=== PATIENT | female | born 1980 | race Caucasian/White ===

== ENCOUNTER 2021-12-14 11:56 | Emergency (ER) | payer OTHER, SELFPAY ==
--- NOTE | ~2021-12-14 | XR_ITS ---
EXAMINATION: XR CHEST CLINICAL INFORMATION: Shortness of breath, cough COMPARISON: Prior chest radiographs, most recently 07/20/2019 TECHNIQUE: 2 views of the chest were obtained. FINDINGS: No significant abnormality is noted involving the heart, lungs, mediastinum, bony thorax or soft tissues. XR/XR chest 2V IMPRESSION: Unremarkable examination.
[2021-12-14 12:07] VITALS: BP 148/73; PULSE 94; RESP 20; TEMP 37; O2SAT 95; BMI 20.9
[2021-12-14 12:34] LABS: COVID-19 Test Negative (Negative); IDNOW Serial# 16C4AD1C; Influenza A Negative (Negative); Influenza B2 Negative (Negative)
[2021-12-14] MEDS: Albuterol Sulfate (0.083%) 2.5 MG/3 ML VIAL.NEB 5 MG INHALE (13:10)
[2021-12-14 13:12] VITALS: PULSE 88; RESP 18; O2SAT 97
[2021-12-14 13:35] VITALS: PULSE 94; RESP 18; O2SAT 99
--- NOTE | 2021-12-14 13:46 | ED.URI ---
HPI - URI/Sore Throat General Chief Complaint: Upper Respiratory Symptoms Stated Complaint: congestion, chest tightness Time Seen by Provider: 12/14/21 12:29 Related Data Previous Rx's Medication Instructions Recorded albuterol sulfate 90 mcg/actuation 1 inh INHALATION QID PRN #8.5 g 12/14/21 aerosol inhaler azithromycin 250 mg tablet See Rx Instructions .ROUTE 12/14/21 .COMPLEX #6 tab codeine 10 mg-guaifenesin 100 mg/5 5 ml PO Q6H PRN #120 ml 12/14/21 mL oral liquid (Guaifenesin AC) prednisone 20 mg tablet 40 mg PO DAILY 5 Days #10 tab 12/14/21 Allergies Allergy/AdvReac Type Severity Reaction Status Date / Time cat dander [CAT] Allergy Severe SHORTNESS Verified 12/14/21 12:06 OF BREATH peanut [PEANUT] Allergy Severe ANAPHYLAXIS Verified 12/14/21 12:06 tomato [TOMATO] Allergy Severe SHORTNESS Verified 12/14/21 12:06 OF BREATH, ITCHY THROAT cucumber [CUCUMBER] Allergy Unknown ANGIOEDEMA Verified 12/14/21 12:06 PEANUT BUTTER Allergy Severe ANAPHYLAXIS Uncoded 05/07/20 16:43 RAW FRUIT Allergy Mild ITCHING Uncoded 05/07/20 16:43 THROAT peanutes Allergy Unknown stopped Uncoded 10/28/13 00:00 breathing PMFSH Past Medical History Medical History (Updated 12/14/21 @ 13:46 by SURINDER Contreras) Afib Anxiety Asthma Bipolar 1 disorder Social History Social History Advance Directives: No Advance Directives Information Provided: No Physical Exam Vital Signs: Vital Signs: Last Vital Signs Temp 98.6 F 12/14/21 12:07 Pulse 94 12/14/21 13:35 Resp 18 12/14/21 13:35 BP 148/73 H 12/14/21 12:07 Pulse Ox 99 12/14/21 13:35 BMI result Body Mass Index 20.9 MDM - URI/Sore Throat Lab Data Labs: Lab Results 12/14/21 12/14/21 Range/Units 12:14 12:14 COVID-19 ([facility]CIANO) Negative (Negative) COVID-19 Clin Com See Note Influenza Type A (SAYRA) Negative (Negative) Influenza Type B (SAYRA) Negative (Negative) Influenza A & B Note See Note Discharge Plan Discharge Clinical Impression: Acute bronchitis with bronchospasm, Asthma exacerbation Patient Disposition: Home, Self-Care Instructions: Asthma (DC), Acute Bronchitis (ED) Prescriptions: New albuterol sulfate 90 mcg/actuation HFA aerosol inhaler 1 inh inhalation QID PRN (Reason: shortness of breath or wheezing) Qty: 8.5 0RF azithromycin 250 mg tablet See Rx Instructions .ROUTE .COMPLEX Qty: 6 0RF Rx Instructions: take 500 mg today (day 1), then 250 mg for 4 days (days 2-5) codeine-guaifenesin [Guaifenesin AC] 10-100 mg/5 mL liquid 5 ml PO Q6H PRN (Reason: cold symptoms) Qty: 120 0RF prednisone 20 mg tablet 40 mg PO DAILY 5 Days Qty: 10 0RF Referrals: Annel Bowden MD [Primary Care Provider] - 2 days
--- NOTE | 2021-12-14 13:50 | ED.ASTHMA ---
HPI - Asthma General Chief Complaint: Upper Respiratory Symptoms Stated Complaint: congestion, chest tightness Time Seen by Provider: 12/14/21 12:29 Source: patient Mode of arrival: ambulatory Limitations: no limitations History of Present Illness HPI Narrative: 41-year-old female with a past medical history of asthma, atrial fibrillation, anxiety and bipolar 1 disorder presenting to the ED with complaints of URI symptoms for the past 2 days worse today after her 7-year-old daughter has similar symptoms. She reports that she is vaccinated to COVID in the flu. She denies recent travel or any other sick contacts. She reports intermittent headaches, nasal congestion/rhinorrhea, dry cough with wheezing and chest tightness. She denies any fevers, chills, dizziness, neck pain/stiffness, trouble swallowing, sore throat, loss of taste or smell, ear pain, sputum production, nausea/vomiting/diarrhea constipation, abdominal pain, back pain, rashes, lower extremity edema or calf tenderness or any other symptoms complaints or concerns at this time. MD complaint: asthma attack , shortness of breath and wheezing Onset (ago): day(s) (2) Severity: moderate Context: none known Associated symptoms: dry cough Asthma History: history of frequent attacks Treatments Prior to Arrival: inhaled bronchodilator Related Data Current Asthma Therapy: inhaled bronchodilator Previous Rx's Medication Instructions Recorded albuterol sulfate 90 mcg/actuation 1 inh INHALATION QID PRN #8.5 g 12/14/21 aerosol inhaler azithromycin 250 mg tablet See Rx Instructions .ROUTE 12/14/21 .COMPLEX #6 tab codeine 10 mg-guaifenesin 100 mg/5 5 ml PO Q6H PRN #120 ml 12/14/21 mL oral liquid (Guaifenesin AC) prednisone 20 mg tablet 40 mg PO DAILY 5 Days #10 tab 12/14/21 Allergies Allergy/AdvReac Type Severity Reaction Status Date / Time cat dander [CAT] Allergy Severe SHORTNESS Verified 12/14/21 12:06 OF BREATH peanut [PEANUT] Allergy Severe ANAPHYLAXIS Verified 12/14/21 12:06 tomato [TOMATO] Allergy Severe SHORTNESS Verified 12/14/21 12:06 OF BREATH, ITCHY THROAT cucumber [CUCUMBER] Allergy Unknown ANGIOEDEMA Verified 12/14/21 12:06 PEANUT BUTTER Allergy Severe ANAPHYLAXIS Uncoded 05/07/20 16:43 RAW FRUIT Allergy Mild ITCHING Uncoded 05/07/20 16:43 THROAT peanutes Allergy Unknown stopped Uncoded 10/28/13 00:00 breathing Review of Systems Review of Systems: Constitutional : denies med noncompliance, no history of PE or DVT, denies recent travel, No Fever, No Chills ENT/Mouth : No Hoarseness, No sore throat,+ Rhinorrhea, + Nasal congestion, No Sinus Pressure, No Ear Pain, No stridor, Eyes: No Redness, No Discharge, No Vision Changes Cardiovascular : No Chest Pain, No SOB, No Dyspnea on Exertion, No Edema, no pleurisy, Respiratory : + Cough, + wheezing, No Sputum, no stridor, no hemoptysis, Gastrointestinal : No Nausea, No Vomiting, No Diarrhea, No abdominal Pain Genitourinary : No Dysuria, No Hematuria Musculoskeletal : No joint pain/swelling, No Myalgias Extremities: no extremity swelling /pain Skin : No rash, no itching, no swelling Neuro : No Weakness, No Numbness, No Headache, No Dizziness, No Paresthesias Psych : No anxiety, depression Heme/Lymph: No Bruising, No Bleeding Endocrine : No Polyuria, No Polydipsia Yes all other systems are reviewed and are negative [facility] Past Medical History Attestation statement: The following information was validated with the patient. Medical History Afib Anxiety Asthma Bipolar 1 disorder Social History Social History Advance Directives: No Advance Directives Information Provided: No Physical Exam Vital Signs: Vital Signs: Last Vital Signs Temp 98.6 F 12/14/21 12:07 Pulse 94 12/14/21 13:35 Resp 18 12/14/21 13:35 BP 148/73 H 12/14/21 12:07 Pulse Ox 99 12/14/21 13:35 BMI result Body Mass Index 20.9 vital signs have been reviewed as normal and appeared to be correct. Blood pressure 148/73. Heart rate normal. Respiration rate normal. Temperature normal. Oxygen saturation normal. Appearance: Alert. Oriented X3. No acute distress. Head: Normal external exam. Normocephalic. Atraumatic. Eyes: PERRLA. EOMI. Conjunctiva and sclera normal. Eyelids normal. ENT: EAC normal. TM's Normal. Pharynx normal. Uvula midline. Moist mucous membranes. No lesions/ulcerations or masses noted on the tongue. Normal voice. No trismus noted. No drooling noted. No muffled voice noted. Neck: Normal inspection. Neck supple. FROM. No adenopathy. Thyroid Normal. No tracheal deviation noted. No crepitus is noted. No meningeal signs. No neck mass noted. No signs of trauma noted. CVS: Normal heart rate and rhythm. Heart sound normal. Pulses normal throughout. No murmurs/rales/gallops. Respiratory: No respiratory distress. Painless inspiration. Patient with decreased breath sounds throughout with mild expiratory wheezing throughout. No rales/rhonchi noted. Chest nontender. No crepitus is noted. No signs of trauma noted. No accessory muscle usage noted or decreased air movement noted. No signs of trauma. Abdomen: Soft and nontender. Bowel sounds normal in all 4 quadrants. No distention noted. No organomegaly noted. No visible injury noted. Back: No CVA tenderness. Full range of motion noted. Nontender. No signs of trauma. Patient neuro intact bilaterally and distally on all 4 extremities. Patient's reflexes intact bilaterally and distally on all 4 extremities. No rashes/lesion/induration/fluctuance or signs of infection noted. Skin: Skin warm and dry. Normal skin color. Normal skin turgor. No rashes/lesions/lacerations noted. Extremities: No lower extremity edema. No calf tenderness is noted. Extremities exhibit normal range of motion and nontender. Neuro: Oriented X 3. No motor deficit. No sensory deficit. Reflexes normal. Normal steady gait. No focal neuro deficits noted. CN's II-XII intact bilaterally? Vascular: + radial pulses/+ 2 distal pedal pulses/+2 dorsalis pedis b/l. Normal cap refill. No cyanosis noted to upper extremity nails and lower extremity toes nails. Course Course Course Narrative: 41-year-old female with a past medical history of asthma, atrial fibrillation, anxiety and bipolar 1 disorder presenting to the ED with complaints of URI symptoms for the past 2 days worse today after her 7-year-old daughter has similar symptoms. She reports that she is vaccinated to COVID in the flu. She denies recent travel or any other sick contacts. She reports intermittent headaches, nasal congestion/rhinorrhea, dry cough with wheezing and chest tightness. She denies any fevers, chills, dizziness, neck pain/stiffness, trouble swallowing, sore throat, loss of taste or smell, ear pain, sputum production, nausea/vomiting/diarrhea constipation, abdominal pain, back pain, rashes, lower extremity edema or calf tenderness or any other symptoms complaints or concerns at this time. X-ray negative for any acute processes. Patient negative for COVID and flu. Patient reports she feels much better after the breathing treatment. Will DC home with symptomatic treatment and a course of steroids and instructions return if any new or worsening symptoms to follow up with primary care provider. Patient understands agrees with this plan. [facility] - Asthma Medical Records Attestation: I reviewed the patient's medical records. Lab Data Attestation: I reviewed the patient's lab results. Labs: Lab Results 12/14/21 12/14/21 Range/Units 12:14 12:14 COVID-19 ([facility]O) Negative (Negative) COVID-19 Clin Com See Note Influenza Type A (SAYRA) Negative (Negative) Influenza Type B (SAYRA) Negative (Negative) Influenza A & B Note See Note Imaging Data Chest x-ray: Attestation: I personally reviewed and interpreted this imaging study as follows: Radiologist's impression: FINDINGS: No significant abnormality is noted involving the heart, lungs, mediastinum, bony thorax or soft tissues. XR/XR chest 2V IMPRESSION: Unremarkable examination. Discharge Plan Discharge Clinical Impression: Acute bronchitis with bronchospasm, Asthma exacerbation Patient Disposition: Home, Self-Care Instructions: Asthma (DC), Acute Bronchitis (ED) Prescriptions: New albuterol sulfate 90 mcg/actuation HFA aerosol inhaler 1 inh inhalation QID PRN (Reason: shortness of breath or wheezing) Qty: 8.5 0RF azithromycin 250 mg tablet See Rx Instructions .ROUTE .COMPLEX Qty: 6 0RF Rx Instructions: take 500 mg today (day 1), then 250 mg for 4 days (days 2-5) codeine-guaifenesin [Guaifenesin AC] 10-100 mg/5 mL liquid 5 ml PO Q6H PRN (Reason: cold symptoms) Qty: 120 0RF prednisone 20 mg tablet 40 mg PO DAILY 5 Days Qty: 10 0RF Referrals: Annel Bowden MD [Primary Care Provider] - 2 days Stand Alone Forms: Work/School Release Print Language: Tanzanian
== END 2021-12-14 14:32 | disposition home or self-care (01) ==
PROVIDERS: Emergency Provider Emergency Medicine; PCP Internal Medicine
DX: J20.9 Acute bronchitis, unspecified (principal); J45.901 Unspecified asthma with (acute) exacerbation; I48.91 Unspecified atrial fibrillation; Z20.822 Contact with and (suspected) exposure to COVID-19
CPT/HCPCS: 71046; 87502; 87635; 94640; 99283; 99284

== ENCOUNTER 2022-01-16 19:23 | Emergency (ER) | payer OTHER, SELFPAY ==
[2022-01-16 19:31] VITALS: BP 150/73; BP 160/110; PULSE 78; PULSE 87; RESP 18; TEMP 36.4; O2SAT 99; BMI 39.5
--- NOTE | 2022-01-16 20:15 | ED.GENADULT ---
HPI - General Adult General Chief complaint: General Medical Stated complaint: withdrawals Time Seen by Provider: 01/16/22 19:54 History of Present Illness HPI narrative: Patient is a 41-year-old female with a history of atrial fibrillation is flecainide. History of bipolar disease on Depakote. Patient feels withdrawal symptoms from not having her venlafaxine for the last 3 days. Feels headache feels generalized malaise. There is no chest pain has no shortness of breath is no diaphoresis. Patient is from home. Patient called her psychiatrist a script was sent to [facility] pharmacy. She did not know which [facility] to. Subsequently patient was unable to obtain her medication. She got worried and came to the ED. She denies any suicidal homicidal ideations no fever no chills no cough no congestion or upper respiratory symptoms no focal weakness no trauma not on thinners Related Data Previous Rx's Medication Instructions Recorded albuterol sulfate 90 mcg/actuation 1 inh INHALATION QID PRN #8.5 g 12/14/21 aerosol inhaler azithromycin 250 mg tablet See Rx Instructions .ROUTE 12/14/21 .COMPLEX #6 tab codeine 10 mg-guaifenesin 100 mg/5 5 ml PO Q6H PRN #120 ml 12/14/21 mL oral liquid (Guaifenesin AC) prednisone 20 mg tablet 40 mg PO DAILY 5 Days #10 tab 12/14/21 Allergies Allergy/AdvReac Type Severity Reaction Status Date / Time cat dander [CAT] Allergy Severe SHORTNESS Verified 12/14/21 12:06 OF BREATH peanut [PEANUT] Allergy Severe ANAPHYLAXIS Verified 12/14/21 12:06 tomato [TOMATO] Allergy Severe SHORTNESS Verified 12/14/21 12:06 OF BREATH, ITCHY THROAT cucumber [CUCUMBER] Allergy Unknown ANGIOEDEMA Verified 12/14/21 12:06 PEANUT BUTTER Allergy Severe ANAPHYLAXIS Uncoded 05/07/20 16:43 RAW FRUIT Allergy Mild ITCHING Uncoded 05/07/20 16:43 THROAT peanutes Allergy Unknown stopped Uncoded 10/28/13 00:00 breathing Review of Systems Review of Systems: No fever no chills Positive generalized malaise Positive diffuse headache No focal weakness Yes all other systems are reviewed and are negative PMFSH Past Medical History Attestation statement: The following information was validated with the patient. Medical History Afib Anxiety Asthma Bipolar 1 disorder Social History Social History Advance Directives: No Advance Directives Information Provided: No Physical Exam ED Vital Signs: Vital Signs - 24 hr 01/16/22 19:31 01/16/22 21:35 Temperature 97.6 F 98.3 F Pulse Rate 78 81 Respiratory Rate 18 16 Blood Pressure 150/73 H 136/61 Pulse Oximetry 99 98 BMI result Body Mass Index 39.5 Appearance: Alert. Oriented X3. No acute distress. Eyes: Pupils equal, round and reactive to light. ENT: Pharynx normal. Neck: Normal inspection. Neck supple. No lymph nodes noted. No crepitus CVS: Normal heart rate and rhythm. Pulses normal. Normal S1 and S2 Respiratory: No respiratory distress. Breath sounds normal. No Wheezing. No rales Abdomen: Soft and nontender. No rigidity. No distention. good BS x4 Skin: Skin warm and dry. Normal skin color. Normal skin turgor. Extremities: No lower extremity edema. Neurovascular intact to all extremities. No Lacerations. No Rash Neuro: Oriented X 3. No motor deficit. No sensory deficit. Moving all extermities. No slurred speech Medical Decision Making MDM Narrative Medical decision making narrative: Patient well appearing no distress. Verify with [facility] pharmacy patient indeed is on 225 of Effexor ER. Her script has been subsequently sent at her request to [facility]. Pharmacist at [facility] assured us that her script most likely will be ready tomorrow morning at [facility]. We will go ahead and give patient her dose here in the emergency department. Give a dose of Motrin. Neurologically she is intact she appears well currently in stable condition. Patient's symptom improved after medications given back to her. She is in stable condition. Will filler picker her prescription tomorrow. She is in stable condition with discharge home Discharge Plan Discharge Clinical Impression: Bipolar 1 disorder Patient Disposition: Home, Self-Care Instructions: Bipolar Disorder (ED) Prescriptions: No Action albuterol sulfate 90 mcg/actuation HFA aerosol inhaler 1 inh inhalation QID PRN (Reason: shortness of breath or wheezing) Qty: 8.5 0RF azithromycin 250 mg tablet See Rx Instructions .ROUTE .COMPLEX Qty: 6 0RF Rx Instructions: take 500 mg today (day 1), then 250 mg for 4 days (days 2-5) codeine-guaifenesin [Guaifenesin AC] 10-100 mg/5 mL liquid 5 ml PO Q6H PRN (Reason: cold symptoms) Qty: 120 0RF prednisone 20 mg tablet 40 mg PO DAILY 5 Days Qty: 10 0RF Referrals: Yanique Segura MD [Primary Care Provider] -
[2022-01-16] MEDS: Ibuprofen 400 MG TABLET PO (21:32)
[2022-01-16] MEDS: Venlafaxine HCl ER 75 MG CAP.ER.24H 225 MG PO (21:33)
[2022-01-16 21:35] VITALS: BP 136/61; PULSE 81; RESP 16; TEMP 36.8; O2SAT 98
== END 2022-01-16 22:27 | disposition home or self-care (01) ==
PROVIDERS: Emergency Provider Emergency Medicine Emergency Medical Services; PCP Family Medicine
DX: F31.9 Bipolar disorder, unspecified (principal); Z91.14 Patient's other noncompliance with medication regimen; R51.9 Headache, unspecified; Z79.899 Other long term (current) drug therapy
CPT/HCPCS: 99283; 99284

== ENCOUNTER 2022-03-22 07:38 | Emergency (ER) | payer OTHER, SELFPAY ==
--- NOTE | ~2022-03-22 | XR_ITS ---
EXAMINATION: XR ANKLE, RIGHT CLINICAL INFORMATION: Right ankle pain status post walking on uneven grass. COMPARISON: None TECHNIQUE: AP, lateral, and mortise views of the right ankle. FINDINGS: The ankle joint and mortise are intact. There is no acute fracture or dislocation. The tarsal bones are normally aligned. There is mild to moderate soft tissue swelling. XR/XR ankle RT 2V IMPRESSION: Mild to moderate soft tissue swelling without acute underlying osseous abnormality.
[2022-03-22 07:42] VITALS: BP 123/63; PULSE 82; RESP 18; TEMP 36.3; O2SAT 95; BMI 37.2
--- NOTE | 2022-03-22 10:09 | ED_ITS ---
HPI - Extremity Injury (Lower) General Chief Complaint: Extremity Injury, Lower Stated Complaint: R ankle inj Time Seen by Provider: 03/22/22 09:27 Source: patient Mode of arrival: ambulatory Limitations: no limitations History of Present Illness HPI Narrative: 41-year-old female with a past medical history of atrial fibrillation, anxiety, asthma, and bipolar 1 disorder, presents following a right ankle injury that occurred the evening of 03/21/22. Patient stated that she was walking on uneven grass when she rolled her right ankle. Patient denies falling at that time. She says she has a history of rolling her ankle, so she has been wearing an OTC ankle brace. Patient denies loss of consciousness, head trauma, numbness, tingling, weakness, or any sick symptoms. MD complaint: ankle injury Onset (ago): day(s) Injury: Right: ankle (Lateral ) Type of Injury: inversion Place: work Severity: mild Severity scale (1-10): 1 Relieving factors: NSAID Exacerbating factors: weight bearing and movement Context: other (Walking on uneven grass) Associated symptoms: swelling (Mild edema of the lateral malleolus ) and ambulatory Other symptoms: none Treatments prior to arrival: cold therapy, NSAIDS and other (Personal ankle brace) Related Data Previous Rx's Medication Instructions Recorded albuterol sulfate 90 mcg/actuation 1 inh inhalation QID PRN shortness 12/14/21 aerosol inhaler of breath or wheezing #8.5 grams azithromycin 250 mg tablet See Rx Instructions PO .COMPLEX #6 12/14/21 tabs codeine 10 mg-guaifenesin 100 mg/5 5 ml PO Q6H PRN cold symptoms #120 12/14/21 mL oral liquid (Guaifenesin AC) mL prednisone 20 mg tablet 40 mg PO DAILY rash 5 days #10 tabs 12/14/21 Allergies Allergy/AdvReac Type Severity Reaction Status Date / Time cat dander [CAT] Allergy Severe SHORTNESS Verified 12/14/21 12:06 OF BREATH peanut [PEANUT] Allergy Severe ANAPHYLAXIS Verified 12/14/21 12:06 tomato [TOMATO] Allergy Severe SHORTNESS Verified 12/14/21 12:06 OF BREATH, ITCHY THROAT cucumber [CUCUMBER] Allergy Unknown ANGIOEDEMA Verified 12/14/21 12:06 PEANUT BUTTER Allergy Severe ANAPHYLAXIS Uncoded 05/07/20 16:43 RAW FRUIT Allergy Mild ITCHING Uncoded 05/07/20 16:43 THROAT peanutes Allergy Unknown stopped Uncoded 10/28/13 00:00 breathing Review of Systems Review of Systems: Constitutional: No Weight loss, No Fever, No Chills Cardiovascular: No Chest Pain, No SOB Respiratory: No Cough, No Sputum, No Wheezing Gastrointestinal: No Nausea, No Vomiting, No Diarrhea, No Constipation, No Abdominal pain Genitourinary: No Dysuria, No Urinary Frequency, No Hematuria, No Urinary Incontinence/retention, No Urgency, No Flank Pain Musculoskeletal: + Joint pain, No Myalgias, + Joint Swelling Skin: No Skin Lesions, No rash Neuro: No Weakness, No Numbness, No Paresthesias Yes all other systems are reviewed and are negative Constitutional: Constitutional: Reports as per [facility] Past Medical History Attestation statement: The following information was validated with the patient. Medical History Afib Anxiety Asthma Bipolar 1 disorder Social History Social History Advance Directives: No Advance Directives Information Provided: Yes Physical Exam Vital Signs: Vital Signs: Last Vital Signs Temp 97.3 F 03/22/22 07:42 Pulse 82 03/22/22 07:42 Resp 18 03/22/22 07:42 BP 123/63 03/22/22 07:42 Pulse Ox 95 03/22/22 07:42 O2 Del Method 03/22/22 07:42 BMI result Body Mass Index 37.2 Const: General: cooperative, healthy appearing and no acute distress Orientation/consciousness: patient oriented x3 Limitations: no limitations HEENT: Head: Yes normal to inspection and Yes atraumatic Ears: hearing grossly normal bilaterally General nose exam: Normal external nose present Face and sinus: Yes normal facial exam Eyes: General: appearance normal, both eyes and all related structures EOM: EOMs intact bilaterally Neck: Neck: Yes normal visual inspection and Yes no meningeal signs Resp: Effort & Inspection: normal respiratory effort and no respiratory distress Auscultation: clear to auscultation bilaterally Cardio: Rate: regular rate Heart sounds: S1 normal heart sound present and S2 normal heart sound present Skin: Rashes: no rashes Wounds: no wounds Neuro: Other: Ambulating with limping gait General: patient oriented x3, tone normal and no meningeal signs Extrem: Other: + mild right lateral malleolar swelling with tenderness to palpation. Limited full ROM secondary to pain. Neurovascularly intact MDM - Extremity Injury (Lower) MDM Narrative Medical decision making narrative: 41-year-old female with a past medical history of atrial fibrillation, anxiety, asthma, and bipolar 1 disorder, presents following a right ankle injury that occurred the evening of 03/21/22. Imaging of the right ankle showed mild to moderate soft tissue swelling, but was negative for acute underlying osseous abnormality. On physical exam, mild swelling was noted around the lateral malleolus, which was mildly tender to palpation. Plan: -Place right ankle in air cast -Follow up with PCP Medical Records Attestation: I reviewed the patient's medical records. Lab Data Attestation: I reviewed the patient's lab results. Discharge Plan Discharge Clinical Impression: Ankle sprain and strain Patient Disposition: Home, Self-Care Instructions: Ankle Sprain (ED) Additional Instructions: You sprained her ankle. Her x-ray is unremarkable. Wear Aircast at home as needed for comfort and stability. Ice and elevate. Take Tylenol and Motrin for pain and swelling. Bear weight as tolerated Prescriptions: No Action albuterol sulfate 90 mcg/actuation HFA aerosol inhaler 1 inh inhalation QID PRN (Reason: shortness of breath or wheezing) Qty: 8.5 0RF azithromycin 250 mg tablet See Rx Instructions .ROUTE .COMPLEX Qty: 6 0RF Rx Instructions: take 500 mg today (day 1), then 250 mg for 4 days (days 2-5) codeine-guaifenesin [Guaifenesin AC] 10-100 mg/5 mL liquid 5 ml PO Q6H PRN (Reason: cold symptoms) Qty: 120 0RF prednisone 20 mg tablet 40 mg PO DAILY 5 Days Qty: 10 0RF Referrals: Physician,Unknown J [Primary Care Provider] - Stand Alone Forms: Work/School Release Interventions: ED Discharge Assessment Last Done: 03/22/22 10:25 Discharge Date/Time: 03/22/22 10:31
== END 2022-03-22 10:31 | disposition home or self-care (01) ==
PROVIDERS: Emergency Provider Emergency Medicine Emergency Medical Services
DX: S93.401A Sprain of unspecified ligament of right ankle, initial encounter (principal); S96.911A Strain of unspecified muscle and tendon at ankle and foot level, right foot, initial encounter; X50.1XXA Overexertion from prolonged static or awkward postures, initial encounter; Y93.89 Activity, other specified; Y92.096 Garden or yard of other non-institutional residence as the place of occurrence of the external cause; Y99.9 Unspecified external cause status
CPT/HCPCS: 73600; 99282; 99283; 99284

== ENCOUNTER 2022-03-29 00:22 | Emergency (ER) | payer OTHER, SELFPAY ==
--- NOTE | ~2022-03-29 | XR_ITS ---
EXAMINATION: XR HAND, LEFT CLINICAL INFORMATION: Middle finger pain COMPARISON: None TECHNIQUE: PA, lateral, and oblique views of the left hand. FINDINGS: The bones and soft tissues are normal. No fracture. Alignment is anatomic. Joint spaces are maintained. No erosions or soft tissue calcifications. XR/XR hand LT 2V IMPRESSION: Normal left hand.
[2022-03-29 00:31] VITALS: BP 138/69; PULSE 85; RESP 16; TEMP 36.3; O2SAT 98; BMI 37.2
--- NOTE | 2022-03-29 01:24 | ED.EXTPRO ---
HPI - Extremity Problem General Chief complaint: Extremity Injury, Upper Stated complaint: thumb pain Time Seen by Provider: 03/29/22 01:21 Source: patient Mode of arrival: ambulatory Limitations: no limitations History of Present Illness MD Complaint: other (L middle finger pain) Onset (ago): day(s) (4) Pain Consistency: constant Location: left and other (middle finger) Quality: aching and dull Radiation: none Relieving factors: immobilization Exacerbating factors: range of motion and palpation Associated symptoms: denies other symptoms Context: other (happened after popping knuckle very hard - at PIP joint, since then pain over flexor tendon) Related Data Previous Rx's Medication Instructions Recorded albuterol sulfate 90 mcg/actuation 1 inh inhalation QID PRN shortness 12/14/21 aerosol inhaler of breath or wheezing #8.5 grams azithromycin 250 mg tablet See Rx Instructions PO .COMPLEX #6 12/14/21 tabs codeine 10 mg-guaifenesin 100 mg/5 5 ml PO Q6H PRN cold symptoms #120 12/14/21 mL oral liquid (Guaifenesin AC) mL prednisone 20 mg tablet 40 mg PO DAILY rash 5 days #10 tabs 12/14/21 Allergies Allergy/AdvReac Type Severity Reaction Status Date / Time peanut [PEANUT] Allergy Severe ANAPHYLAXIS Verified 03/29/22 00:30 banana Allergy Itching Verified 03/29/22 00:30 Review of Systems Review of Systems: Constitutional : No Fever, No Chills ENT/Mouth : No Ear Pain, No Hoarseness, No sore throat Eyes: No Eye Pain, No Swelling, No Redness, No Foreign Body Cardiovascular : No Chest Pain, No SOB Respiratory : No Cough, No Dyspnea Gastrointestinal : No Nausea, No Vomiting, No Diarrhea, No abdominal Pain Genitourinary : No Dysuria, No Hematuria Musculoskeletal : positive joint pain, No Myalgias, No Joint Swelling Skin : No Skin lacerations, No rash Neuro : No Weakness, No Numbness PMFSH Past Medical History Medical History Afib Anxiety Asthma Bipolar 1 disorder Social History Social History (Updated 03/29/22 @ 02:42 by Cadnace Spangler DO) Patient Tobacco Use Status: Never used Tobacco Advance Directives: No Advance Directives Information Provided: Yes Physical Exam Vital Signs: Vital Signs: Last Vital Signs Temp 97.4 F 03/29/22 00:31 Pulse 82 03/29/22 01:51 Resp 16 03/29/22 01:51 BP 134/76 03/29/22 01:51 Pulse Ox 98 03/29/22 01:51 O2 Del Method 03/29/22 01:51 BMI result Body Mass Index 37.2 Appearance: Alert. Oriented X3. No acute distress. Eyes: Pupils equal, round and reactive to light. ENT: Pharynx normal. Neck: Normal inspection. Neck supple. CVS: Pulses normal. Respiratory: No respiratory distress. Abdomen: Soft and nontender. Skin: Skin warm and dry. Normal skin color. Extremities: No lower extremity edema. L index finger ttp along flexor tendon has full ROM and good strength but painful ROM - distals NV intact, no signs of swelling or infection Neuro: Oriented X 3. No motor deficit. No sensory deficit. MDM - Extremity (Nontraumatic) MDM Narrative Medical decision making narrative: 41 yo female with L index finger injury s/p cracking knuckle suspect tendon strain will refer to orthopedics and splint, xray negative Procedures Orthopedic Splinting/Casting Injury #1: Side: left Upper Extremity Injury Location: finger (middle) Upper Extremity Immobilizer: finger (other) Discharge Plan Discharge Clinical Impression: Injury of flexor tendon of left hand Patient Disposition: Home, Self-Care Instructions: Finger Sprain (ED) Additional Instructions: return to ED for any worsening symptoms or concerns wear splint for a week if not better in the next 4 days call orthopedics for follow up Prescriptions: No Action albuterol sulfate 90 mcg/actuation HFA aerosol inhaler 1 inh inhalation QID PRN (Reason: shortness of breath or wheezing) Qty: 8.5 0RF azithromycin 250 mg tablet See Rx Instructions .ROUTE .COMPLEX Qty: 6 0RF Rx Instructions: take 500 mg today (day 1), then 250 mg for 4 days (days 2-5) codeine-guaifenesin [Guaifenesin AC] 10-100 mg/5 mL liquid 5 ml PO Q6H PRN (Reason: cold symptoms) Qty: 120 0RF prednisone 20 mg tablet 40 mg PO DAILY 5 Days Qty: 10 0RF Referrals: Mary Qiu PA-C [Physician [facility] Riveter] - 1 week
[2022-03-29] MEDS: Cyclobenzaprine HCl 10 MG TABLET PO (01:48)
[2022-03-29 01:51] VITALS: BP 134/76; PULSE 82; RESP 16; O2SAT 98
== END 2022-03-29 05:12 | disposition home or self-care (01) ==
PROVIDERS: Emergency Provider Emergency Medicine
DX: S66.103A Unspecified injury of flexor muscle, fascia and tendon of left middle finger at wrist and hand level, initial encounter (principal); X50.3XXA Overexertion from repetitive movements, initial encounter; Y93.9 Activity, unspecified; Y92.9 Unspecified place or not applicable; Y99.9 Unspecified external cause status
CPT/HCPCS: 29130; 73120; 99283

== ENCOUNTER 2022-04-17 00:40 | Emergency (ER) | payer OTHER, SELFPAY ==
--- NOTE | ~2022-04-17 | XR_ITS ---
EXAMINATION: XR FOOT, RIGHT CLINICAL INFORMATION: Fall COMPARISON: Ankle radiographs from earlier today TECHNIQUE: AP, lateral, and oblique views of the right foot. FINDINGS: Osseous alignment is anatomic. Os trigonum is noted. Previously identified tiny calcification along the lateral foot on recent ankle radiographs is suspected to be adjacent to the lateral margin of the distal calcaneus. No additional findings of suggest acute fracture. No significant focal soft tissue abnormality. XR/XR foot RT min 3V IMPRESSION: Tiny calcification adjacent to the lateral margin of the distal calcaneus; clinical correlation is advised, as this could reflect a small fracture fragment.
--- NOTE | ~2022-04-17 | XR_ITS ---
EXAMINATION: XR ANKLE, RIGHT CLINICAL INFORMATION: Pain and swelling after trauma COMPARISON: None TECHNIQUE: AP, lateral, and mortise views of the right ankle. FINDINGS: Osseous alignment is anatomic. Distal tibia and fibula appear intact. There is a nonspecific small calcification along the lateral aspect of the foot seen only on a single view. There is soft tissue swelling at the ankle more prominently anteriorly and laterally. XR/XR ankle RT min 3V IMPRESSION: Small calcification along the lateral foot, not adequately assessed and which could be chronic or potentially a small fracture fragment; assessment with dedicated foot radiographs may be helpful. Soft tissue swelling at the ankle.
--- NOTE | ~2022-04-17 | XR_ITS ---
EXAMINATION: XR ANKLE, LEFT CLINICAL INFORMATION: Pain and swelling after trauma COMPARISON: None TECHNIQUE: AP, lateral, and mortise views of the left ankle. FINDINGS: Osseous alignment is anatomic. No acute fracture is seen. Mild plantar calcaneal spurs noted. Soft tissue swelling is present most prominently anteriorly and laterally. XR/XR ankle LT min 3V IMPRESSION: Soft tissue swelling. No acute fracture identified.
--- NOTE | ~2022-04-17 | XR_ITS ---
EXAMINATION: XR FOOT, LEFT CLINICAL INFORMATION: Fall COMPARISON: Ankle radiographs from earlier today TECHNIQUE: AP, lateral, and oblique views of the left foot. FINDINGS: There is an oblique fracture of the distal fifth metatarsal shaft with mild displacement across the fracture line. Adjacent soft tissue swelling is present. Articular alignment throughout the foot is maintained. Minimal degenerative changes are noted at the tarsometatarsal articulations. XR/XR foot LT min 3V IMPRESSION: Mildly displaced oblique fracture of the distal fifth metatarsal shaft.
[2022-04-17 00:52] VITALS: BP 160/100; PULSE 96; O2SAT 97
--- NOTE | 2022-04-17 01:50 | ED.LOWEXIN ---
HPI - Extremity Injury (Lower) General Chief Complaint: Extremity Injury, Lower Stated Complaint: right and left ankle pain Time Seen by Provider: 04/17/22 01:46 Source: patient Mode of arrival: EMS Limitations: no limitations History of Present Illness MD complaint: ankle injury and foot injury Onset (ago): hour(s) (3pm yesterday on 04/16) Injury: Right: ankle and foot Type of Injury: blunt and inversion Place: other (boat) Severity: moderate Relieving factors: nothing Exacerbating factors: weight bearing and palpation Context: other (slipped on boat) Associated symptoms: snap/pop sensation and swelling Other symptoms: none Related Data Previous Rx's Medication Instructions Recorded albuterol sulfate 90 mcg/actuation 1 inh inhalation QID PRN shortness 12/14/21 aerosol inhaler of breath or wheezing #8.5 grams azithromycin 250 mg tablet See Rx Instructions PO .COMPLEX #6 12/14/21 tabs codeine 10 mg-guaifenesin 100 mg/5 5 ml PO Q6H PRN cold symptoms #120 12/14/21 mL oral liquid (Guaifenesin AC) mL prednisone 20 mg tablet 40 mg PO DAILY rash 5 days #10 tabs 12/14/21 cyclobenzaprine 10 mg tablet 10 mg PO TID PRN muscle spasm #14 04/17/22 tabs ibuprofen 600 mg tablet 600 mg PO Q6H PRN pain #30 tabs 04/17/22 morphine 15 mg immediate release 15 mg PO TID PRN pain #12 tabs 04/17/22 tablet ondansetron 4 mg disintegrating 4 mg PO Q8H PRN nausea and 04/17/22 tablet vomiting #20 tabs Allergies Allergy/AdvReac Type Severity Reaction Status Date / Time peanut [PEANUT] Allergy Severe ANAPHYLAXIS Verified 04/17/22 01:53 banana Allergy Itching Verified 04/17/22 01:53 Review of Systems Review of Systems: Constitutional : No Fever, No Chills ENT/Mouth : No Ear Pain, No Hoarseness, No sore throat Eyes: No Eye Pain, No Swelling, No Redness, No Foreign Body Cardiovascular : No Chest Pain, No SOB Respiratory : No Cough, No Dyspnea Gastrointestinal : No Nausea, No Vomiting, No Diarrhea, No abdominal Pain Genitourinary : No Dysuria, No Hematuria Musculoskeletal : positive joint pain, No Myalgias, pos Joint Swelling Skin : No Skin lacerations, No rash Neuro : No Weakness, No Numbness, No Loss of Consciousness, No Dizziness, No Headache All other systems reviewed and are negative [facility] Past Medical History Attestation statement: The following information was validated with the patient. Medical History Afib Anxiety Asthma Bipolar 1 disorder Social History Social History Patient Tobacco Use Status: Never used Tobacco Advance Directives: No Advance Directives Information Provided: No Physical Exam Vital Signs: Vital Signs: Last Vital Signs Temp 97.4 F 04/17/22 01:53 Pulse 89 04/17/22 01:53 Resp 16 04/17/22 01:53 BP 139/78 04/17/22 01:53 Pulse Ox 96 04/17/22 01:53 O2 Del Method 04/17/22 01:53 BMI result Body Mass Index 37.3 Appearance: Alert. Oriented X3. No acute distress. Eyes: Pupils equal, round and reactive to light. ENT: Pharynx normal. Neck: Normal inspection. Neck supple. CVS: Normal heart rate and rhythm. Pulses normal. Respiratory: No respiratory distress. Breath sounds normal. Abdomen: Soft and non-tender. Skin: Skin warm and dry. Normal skin color. Normal skin turgor. Extremities: No lower extremity edema. ttp along both lateral malleolus and dorsum of both feet, SILT intact, bounding 2+ DP pulses bilaterally Neuro: Oriented X 3. No motor deficit. No sensory deficit. MDM - Extremity Injury (Lower) MDM Narrative Medical decision making narrative: 41 yo female with hx of afib, bipolar who slipped on a boat yesterday injuring both feet and ankles - at this time xray of bilateral ankles and feet are ordered. IM toradol and flexeril for pain. She is NV intact. Denies other injuries. Dispo per results and findings. Procedures Orthopedic Splinting/Casting Injury #1: Side: right Lower Extremity Injury Location: ankle Lower Extremity Immobilizer: AirCast Other Orthopedic Equipment: crutches Injury #2: Side: left Lower Extremity Injury Location: foot Lower Extremity Immobilizer: posterior splint Other Orthopedic Equipment: crutches Discharge Plan Discharge Clinical Impression: Ankle sprain and strain Metatarsal bone fracture Qualifiers: Encounter type: initial encounter Metatarsal bone: fifth Fracture type: closed Fracture alignment: displaced Laterality: left Qualified Code(s): S92.352A - Displaced fracture of fifth metatarsal bone, left foot, initial encounter for closed fracture Patient Disposition: Home, Self-Care Instructions: Ankle Sprain (ED), Crutch Instructions (ED), Foot Fracture in Adults (ED), R.I.C.E. Treatment (ED) Additional Instructions: return to ED for any worsening symptoms or concerns splint until released air cast for 1 week ice, elevate, crutches Prescriptions: New cyclobenzaprine 10 mg tablet 10 mg PO TID PRN (Reason: muscle spasm) Qty: 14 0RF ibuprofen 600 mg tablet 600 mg PO Q6H PRN (Reason: pain) Qty: 30 0RF morphine 15 mg tablet 15 mg PO TID PRN (Reason: pain) Qty: 12 0RF Rx Instructions: partial fill okay; Partial Fill upon patient request. ondansetron 4 mg tablet,disintegrating 4 mg PO Q8H PRN (Reason: nausea and vomiting) Qty: 20 0RF No Action albuterol sulfate 90 mcg/actuation HFA aerosol inhaler 1 inh inhalation QID PRN (Reason: shortness of breath or wheezing) Qty: 8.5 0RF azithromycin 250 mg tablet See Rx Instructions .ROUTE .COMPLEX Qty: 6 0RF Rx Instructions: take 500 mg today (day 1), then 250 mg for 4 days (days 2-5) codeine-guaifenesin [Guaifenesin AC] 10-100 mg/5 mL liquid 5 ml PO Q6H PRN (Reason: cold symptoms) Qty: 120 0RF prednisone 20 mg tablet 40 mg PO DAILY 5 Days Qty: 10 0RF Referrals: Mary Qiu PA-C [Physician Database Security Administrator] - 1 week Stand Alone Forms: Work/School Release
[2022-04-17 01:53] VITALS: BP 139/78; PULSE 89; RESP 16; TEMP 36.3; O2SAT 96; BMI 37.3
[2022-04-17] MEDS: Ketorolac Tromethamine 30 MG/ML VIAL IM (02:11)
[2022-04-17] MEDS: Cyclobenzaprine HCl 10 MG TABLET PO (02:11)
[2022-04-17] MEDS: Morphine Sulfate Immed Release 15 MG TABLET PO (02:43)
== END 2022-04-17 07:09 | disposition home or self-care (01) ==
PROVIDERS: Emergency Provider Emergency Medicine
DX: S92.352A Displaced fracture of fifth metatarsal bone, left foot, initial encounter for closed fracture (principal); S93.402A Sprain of unspecified ligament of left ankle, initial encounter; M25.572 Pain in left ankle and joints of left foot; M25.571 Pain in right ankle and joints of right foot; W01.10XA Fall on same level from slipping, tripping and stumbling with subsequent striking against unspecified object, initial encounter; Y93.9 Activity, unspecified; Y92.814 Boat as the place of occurrence of the external cause; Y99.8 Other external cause status; Z79.899 Other long term (current) drug therapy
CPT/HCPCS: 29515; 73610; 73630; 96372; 99284; J1885

== ENCOUNTER 2022-06-18 02:44 | Emergency (ER) | payer OTHER, SELFPAY ==
[2022-06-18 02:54] VITALS: BP 147/94; PULSE 87; RESP 16; TEMP 36.8; O2SAT 100; BMI 37.2
--- OUTSIDE RECORDS SUMMARY | 2022-06-18 03:03 | XMS_ITS | Continuity of Care Document ---
:1980 Author Organization [facility] Address [address] [place] [id number] Care Team Providers Name Role Phone Annel Bowden MD Primary Care Physician Encounter [facility] [place] Date(s): 01/07/20 - 01/07/[address] [address]- [facility] Encounter Diagnosis Vasovagal syncope (Final) - 01/07/20 Diarrhea (Final) - 01/07/20 Discharge Disposition: A-D/C Home Attending Physician: Mindi Day MD Admitting Physician: Mindi Day MD Referring Physician: Not on Staff, Referring MD Allergies, Adverse Reactions, Alerts Substance Reaction Severity Status Nuts Active Peanuts Active Medications Advair Diskus 100 mcg-50 mcg inhalation powder 1, puffs, Inhalation, 2 times a day, 0, 0, 04/09/07 16:22:52, Print DALILA Number, [id number], Constant Indicator Start Date: 04/09/07 Status: OrdereddilTIAZem 360 mg/24 hours oral capsule, extended release 1 capsule = 360 mg, By Mouth, Daily, # 30 capsule, 0 Refills, Maintenance, 03/22/19 13:38:39 EDT, CRCapsule Start Date: 03/22/19 Status: Ordereddivalproex sodium 250 mg oral tablet, extended release 2 tablet = 500 mg, By Mouth, Daily, # 60 tablet, 0 Refills, Maintenance, 03/22/19 13:36:57 EDT, ER Tablet Start Date: 03/22/19 Status: OrderedEpiPen 2-Doron 0.3 mg injectable kit = 0.3 mg, Intramuscular, Once, # 1 box, 0 Refills, Soft Stop, 01/19/18 1:37:31 EDT Start Date: 01/19/18 Status: OrderedFlecainide = 150 mg, By Mouth, Every 12 hours, 0 Refills, Maintenance, 03/22/19 13:22:18 EDT Start Date: 03/22/19 Status: Orderedlamotrigine 25 mg oral tablet, extended release 1 tablet = 25 mg, By Mouth, Daily, # 30 tablet, 0 Refills, Maintenance, 03/22/19 13:36:37 EDT, ER Tablet Start Date: 03/22/19 Status: Orderedpantoprazole 40 mg oral delayed release tablet = 40 mg, By Mouth, Daily at bedtime, # 30 tablet, 0 Refills, Maintenance, 03/29/19 11:47:35 EDT, EC Tablet Start Date: 03/29/19 Stop Date: 04/28/19 Status: OrderedPatient's Own Meds Maintenance, EPI pen, 01/10/14 9:33:14 Start Date: 01/10/14 Status: OrderedProAir HFA 90 mcg/inh inhalation aerosol with adapter 1 puffs, Inhalation, Every 4 hours, PRN for wheezing, # 8.5 Gm, 0 Refills, Maintenance, Aerosol Start Date: 07/24/11 Status: OrderedPt.'s Own Meds See Instructions, Maintenance, Daily oral control, 03/22/19 13:38:56 EDT Start Date: 03/22/19 Status: Orderedvenlafaxine 37.5 mg oral capsule, extended release 37.5 mg, 1, capsule, By Mouth, Daily, Take with 75mg dose for total dose 112.5mg, # 30 capsule, Refills 0, Maintenance, 03/22/19 13:38:20 EDT Start Date: 03/22/19 Status: Orderedvenlafaxine 75 mg oral capsule, extended release 75 mg, 1, capsule, By Mouth, Daily, take with 37.5mg dose for total 112.5 mg dose, # 30 capsule, Refills 0, Maintenance, 03/22/19 13:38:09 EDT Start Date: 03/22/19 Status: OrderedXarelto 20 mg oral tablet 1 tablet = 20 mg, By Mouth, Daily at supper, # 30 tablet, 0 Refills, Maintenance, 03/22/19 13:36:20 EDT, Tablet Start Date: 03/22/19 Status: Ordered Problem List Condition Effective Dates Status Health Status Informant Anaphylactic reaction to certain Active foods(Confirmed) Anxiety(Confirmed) Active Asthma(Confirmed) Active Afib(Confirmed) Active Bipolar disorder(Confirmed) Active Depression(Confirmed) Active Marijuana use(Confirmed) Active Glaucoma(Confirmed) Active Hearing loss(Confirmed) Active Cervical cancer(Confirmed) Active Morbid obesity, Actual BMI 40 as of Active 01/21/2017(Confirmed) Palpitations(Confirmed) Active (Confirmed) Active Vital Signs Most recent to oldest [Reference Range]: 1 2 Oxygen Saturation [94-100 %] 98 % 98 % (01/07/20 1:41 PM) (01/07/20 11:33 AM) Pulse Rate [55-90 bpm] 87 bpm 70 bpm (01/07/20 1:41 PM) (01/07/20 11:33 AM) Blood Pressure [90-138/55-84 mm Hg] 118/76 mm Hg 130/ 62 mm Hg (01/07/20 1:41 PM) (01/07/20 11:33 AM) Respiratory Rate [16-30 br/min] 18 br/min 18 br/mi n (01/07/20 1:41 PM) (01/07/20 11:33 AM) Temperature [96.8-100.4 DegF] 97.4 DegF 97.4 DegF (01/07/20 1:41 PM) (01/07/20 11:33 AM) Mode of Delivery (Oxygen) Room air Room air (01/07/20 1:41 PM) (01/07/20 11:33 AM) Blood pressure sites Arm, right Arm, right (01/07/20 1:41 PM) (01/07/20 11:33 AM) Temperature Route Oral Oral (01/07/20 1:41 PM) (01/07/20 11:33 AM) Social History Social History Type Response Smoking Status Never smoker entered on: 05/19/15 Sex
--- NOTE | 2022-06-18 03:38 | ED.LOWEXIN ---
HPI - Extremity Injury (Lower) General Chief Complaint: Extremity Injury, Lower Stated Complaint: R foot pain Time Seen by Provider: 06/18/22 03:35 Source: patient Mode of arrival: ambulatory Limitations: no limitations History of Present Illness HPI Narrative: Patient with right foot pain after questionable chip fracture of the calcaneum bone in 04/11 been followed by Orthopedic who did the MRI yesterday result is pending complaining of pain in the dorsum of the right foot spreading although with slight swelling no neurovascular deficit no recent injury Related Data Previous Rx's Medication Instructions Recorded albuterol sulfate 90 mcg/actuation 1 inh inhalation QID PRN shortness 12/14/21 aerosol inhaler of breath or wheezing #8.5 grams azithromycin 250 mg tablet See Rx Instructions PO .COMPLEX #6 12/14/21 tabs codeine 10 mg-guaifenesin 100 mg/5 5 ml PO Q6H PRN cold symptoms #120 12/14/21 mL oral liquid (Guaifenesin AC) mL prednisone 20 mg tablet 40 mg PO DAILY rash 5 days #10 tabs 12/14/21 cyclobenzaprine 10 mg tablet 10 mg PO TID PRN muscle spasm #14 04/17/22 tabs ibuprofen 600 mg tablet 600 mg PO Q6H PRN pain #30 tabs 04/17/22 morphine 15 mg immediate release 15 mg PO TID PRN pain #12 tabs 04/17/22 tablet ondansetron 4 mg disintegrating 4 mg PO Q8H PRN nausea and 04/17/22 tablet vomiting #20 tabs diclofenac sodium 1 % topical gel 2 g topical .B.i.d. #100 grams 06/18/22 (Voltaren Arthritis Pain) Allergies Allergy/AdvReac Type Severity Reaction Status Date / Time peanut [PEANUT] Allergy Severe ANAPHYLAXIS Verified 06/18/22 02:54 banana Allergy Itching Verified 06/18/22 02:54 Review of Systems Review of Systems: Yes all other systems are reviewed and are negative PMFSH Past Medical History Medical History Afib Anxiety Asthma Bipolar 1 disorder Social History Social History Alcohol intake: never Patient Tobacco Use Status: Never used Tobacco Smoked in Last 30 Days: No Use of substances other than those prescribed or required for medical reasons: Yes Substance Use Type: Marijuana Advance Directives: No Advance Directives Information Provided: Yes Patient : No Physical Exam Vital Signs: Vital Signs: Last Vital Signs Temp 98.3 F 06/18/22 04:00 Pulse 88 06/18/22 04:00 Resp 16 06/18/22 02:54 BP 133/64 06/18/22 04:00 Pulse Ox 98 06/18/22 04:00 O2 Del Method 06/18/22 04:00 BMI result Body Mass Index 37.2 Const: General: healthy appearing, comfortable and no acute distress Extrem: Ankle/foot/toe images: 1. Slight soft tissue swelling with tenderness neurovascular intact ankle mortise intact MDM - Extremity Injury (Lower) MDM Narrative Medical decision making narrative: Patient is with soft tissue swelling clinically does not look like at the site where patient has a questionable calcaneal chip fracture local 1% lidocaine was injected at the site which she has pain, patient felt much better able to ambulate pain has gone Discharge Plan Discharge Clinical Impression: Ankle sprain and strain Patient Disposition: Home, Self-Care Instructions: Ankle Strain (ED) Additional Instructions: Follow-up with your orthopedician Continue take your pain medication apply Voltaren gel locally 2 times a day as needed for pain Prescriptions: New diclofenac sodium [Voltaren Arthritis Pain] 1 % gel 2 g topical .B.i.d. Qty: 100 0RF Rx Instructions: Apply to affected area twice daily No Action albuterol sulfate 90 mcg/actuation HFA aerosol inhaler 1 inh inhalation QID PRN (Reason: shortness of breath or wheezing) Qty: 8.5 0RF azithromycin 250 mg tablet See Rx Instructions .ROUTE .COMPLEX Qty: 6 0RF Rx Instructions: take 500 mg today (day 1), then 250 mg for 4 days (days 2-5) codeine-guaifenesin [Guaifenesin AC] 10-100 mg/5 mL liquid 5 ml PO Q6H PRN (Reason: cold symptoms) Qty: 120 0RF prednisone 20 mg tablet 40 mg PO DAILY 5 Days Qty: 10 0RF cyclobenzaprine 10 mg tablet 10 mg PO TID PRN (Reason: muscle spasm) Qty: 14 0RF ibuprofen 600 mg tablet 600 mg PO Q6H PRN (Reason: pain) Qty: 30 0RF morphine 15 mg tablet 15 mg PO TID PRN (Reason: pain) Qty: 12 0RF Rx Instructions: partial fill okay; Partial Fill upon patient request. ondansetron 4 mg tablet,disintegrating 4 mg PO Q8H PRN (Reason: nausea and vomiting) Qty: 20 0RF
[2022-06-18 04:00] VITALS: BP 133/64; PULSE 88; TEMP 36.8; O2SAT 98
[2022-06-18] MEDS: Lidocaine HCl 1 % MPF 2 ML VIAL INFILTRATI (04:41)
--- NOTE | 2022-06-18 04:41 | PC.NURSE ---
Lidocaine would not scan and given by provider to pt right foot.
== END 2022-06-18 05:13 | disposition home or self-care (01) ==
PROVIDERS: Emergency Provider Internal Medicine
DX: M25.571 Pain in right ankle and joints of right foot (principal)
CPT/HCPCS: 99284

== ENCOUNTER 2022-07-29 20:11 | Emergency (ER) | payer OTHER, SELFPAY ==
--- NOTE | ~2022-07-29 | XR_ITS ---
EXAMINATION: XR CHEST CLINICAL INFORMATION: Shortness of breath COMPARISON: Previous chest x-ray most recent November 2021 TECHNIQUE: Frontal view of the chest was obtained. FINDINGS: The cardiac and mediastinal contours are stable. There is slight elevation of the right hemidiaphragm that is stable. The lungs are clear. No pleural effusion or pneumothorax. Degenerative changes of the spine. XR/XR chest 1V IMPRESSION: No evidence for acute disease in the chest.
[2022-07-29 20:13] VITALS: BP 136/55; PULSE 85; RESP 20; TEMP 36.6; O2SAT 100; BMI 38.0
--- NOTE | 2022-07-29 20:27 | ED_ITS ---
HPI - General Adult General Chief complaint: Upper Respiratory Symptoms Stated complaint: Difficulty breathing/+Covid Source: patient Mode of arrival: ambulatory Limitations: no limitations History of Present Illness HPI narrative: This is a 42-year-old female past medical history significant asthma presenting to the emergency with complaints of shortness of breath at rest and with exertion for the past 2 days progressively worsening. Patient tells me she has been around a lot of sick contacts at work history she works at a [employer] facility. Reports subjective fevers and chills. Reports malaise, fa tigue, myalgias. Patient vaccinated against flu and COVID. Denies chest pain, nausea, vomiting, abdominal pain, diarrhea, constipation, weakness, headache, vision changes and dizziness. No hx of PE or DVT. No lower extremity swelling. Related Data Previous Rx's Medication Instructions Recorded albuterol sulfate 90 mcg/actuation 1 inh inhalation QID PRN shortness 12/14/21 aerosol inhaler of breath or wheezing #8.5 grams azithromycin 250 mg tablet See Rx Instructions PO .COMPLEX #6 12/14/21 tabs codeine 10 mg-guaifenesin 100 mg/5 5 ml PO Q6H PRN cold symptoms #120 12/14/21 mL oral liquid (Guaifenesin AC) mL prednisone 20 mg tablet 40 mg PO DAILY rash 5 days #10 tabs 12/14/21 cyclobenzaprine 10 mg tablet 10 mg PO TID PRN muscle spasm #14 04/17/22 tabs ibuprofen 600 mg tablet 600 mg PO Q6H PRN pain #30 tabs 04/17/22 morphine 15 mg immediate release 15 mg PO TID PRN pain #12 tabs 04/17/22 tablet ondansetron 4 mg disintegrating 4 mg PO Q8H PRN nausea and 04/17/22 tablet vomiting #20 tabs diclofenac sodium 1 % topical gel 2 g topical .B.i.d. #100 grams 06/18/22 (Voltaren Arthritis Pain) albuterol sulfate 90 mcg/actuation 2 inh inhalation Q4-6H PRN 07/29/22 breath activated powder inhaler shortness of breath or wheezing #1 ea prednisone 20 mg tablet 40 mg PO DAILY 5 days #10 tabs 07/29/22 Allergies Allergy/AdvReac Type Severity Reaction Status Date / Time peanut [PEANUT] Allergy Severe ANAPHYLAXIS Verified 06/18/22 02:54 banana Allergy Itching Verified 06/18/22 02:54 Review of Systems Review of Systems: Constitutional : No Weight loss, No Fever, No Chills, + Fatigue, + Malaise ENT/Mouth : No sore throat, No Rhinorrhea Eyes: No Eye Pain, No Swelling, No Redness Cardiovascular : No Chest Pain, + SOB, No Dyspnea on Exertion, No Orthopnea, No Edema, No Palpitations Respiratory : No Cough, No Sputum, No Wheezing Gastrointestinal : No Nausea, No Vomiting, No Diarrhea, No Constipation, No abdominal Pain, No Hematochezia, No Melena Genitourinary : No Dysuria, No Urinary Frequency, No Hematuria, Musculoskeletal : No joint pain, + Myalgias, No Joint Swelling Skin : No Skin Lesions, No rash Neuro : No Weakness, No Numbness, No Dizziness, No Headache Psych : No Anxiety/Panic, No Depression All other systems reviewed and are negative Yes all other systems are reviewed and are negative PMFSH Past Medical History Attestation statement: The following information was validated with the patient. Source: old records reviewed and nursing notes reviewed Medical History Afib Anxiety Asthma Bipolar 1 disorder Social History Social History Alcohol intake: never Patient Tobacco Use Status: Never used Tobacco Substance Use Type: Marijuana Physical Exam ED Vital Signs: Vital Signs - 24 hr 07/29/22 20:13 Temperature 97.8 F Pulse Rate 85 Respiratory Rate 20 Blood Pressure 136/55 L Pulse Oximetry 100 Oxygen Delivery Method Room Air BMI result Body Mass Index 38.0 vss Appearance: Alert.? Oriented X3.? No acute distress.? Head: Normocephalic, atraumatic, no step-offs or deformities Eyes: Pupils equal, round and reactive to light.? ENT: Pharynx normal.? Neck: Normal inspection.? Neck supple.? CVS: Normal heart rate and rhythm.? Pulses normal.? Respiratory: No respiratory distress.? Breath sounds normal.?No labored breathing Abdomen: Soft and nontender.? Skin: Skin warm and dry.? Normal skin color.? Normal skin turgor.? Extremities: No lower extremity edema.? No calf ttp, negative vania. 5/5 strength to bilateral upper and lower extremities Neuro: Oriented X 3.? No motor deficit.? No sensory deficit. CN 2-12 intact Course Course Course Narrative: RME:42 year old female hx of asthma presents w/ shortness of breath at rest and w/ exertion X2 days. Took a at home COVID test which was + today. Vaccinated for flu and COVID. Reports fatigue and malaise. No chest pain. Works at a [employer] with multiple sick contacts PE benign Plan- xray. Reevaluation(s) Reevaluation #1: Patient noted to be COVID positive. Chest x-ray unremarkable Educated on CDC guidelines, outlined on discharge. Will give her a work note for 5 days. Will discharge her home on prednisone, will give her albuterol. Educated on worrisome signs and symptoms and when to return. Comfortable discharge home with prompt PCP follow-up and return with new or worsening symptoms Time: 22:00 Medical Decision Making Medical Decision Making [facility] Narrative: 2149 42-year-old female presents COVID like symptoms x2 days. History of asthma. Using her albuterol inhaler more often. Physical exam benign. Patient's vital signs stable. Ambulating 100% even after ambulation. Likely viral. I do not suspect PE, pneumonia. No chest pain unlikely ACS. Patient PERC negative. Plan at this time viral panel, chest x-ray Critical Care Time Critical Care Time Critical Care Time: No Discharge Plan Discharge Clinical Impression: COVID-19 Patient Disposition: Home, Self-Care Instructions: COVID-19 (Coronavirus Disease 2019) (ED) Additional Instructions: Take your medications as prescribed. If you were prescribed antibiotics today, it is important that you take your medication to their entirety, do not skip any doses, do not finish them early. Today you tested positive for COVID-19. Take Ibuprofen or Tylenol as needed for fevers or body aches. Quarantine for 5 days and ensure you wear a mask. After 5 days you should wear a mask for 5 days after that. Practice social distancing and good hand hygiene. Drink plenty of fluids. Follow-up with your primary care provider this week. Return to the emergency department with new or worsening symptoms. In case of emergency call 911 You can purchase a pulse oximeter from your local pharmacy or grocery store, and monitor your oxygen saturation if it goes below 94% you should return to the emergency department for further evaluation. Prescriptions: New albuterol sulfate 90 mcg/actuation aerosol powdr breath activated 2 inh inhalation Q4-6H PRN (Reason: shortness of breath or wheezing) Qty: 1 0RF prednisone 20 mg tablet 40 mg PO DAILY 5 Days Qty: 10 0RF No Action albuterol sulfate 90 mcg/actuation HFA aerosol inhaler 1 inh inhalation QID PRN (Reason: shortness of breath or wheezing) Qty: 8.5 0RF azithromycin 250 mg tablet See Rx Instructions .ROUTE .COMPLEX Qty: 6 0RF Rx Instructions: take 500 mg today (day 1), then 250 mg for 4 days (days 2-5) codeine-guaifenesin [Guaifenesin AC] 10-100 mg/5 mL liquid 5 ml PO Q6H PRN (Reason: cold symptoms) Qty: 120 0RF prednisone 20 mg tablet 40 mg PO DAILY 5 Days Qty: 10 0RF cyclobenzaprine 10 mg tablet 10 mg PO TID PRN (Reason: muscle spasm) Qty: 14 0RF ibuprofen 600 mg tablet 600 mg PO Q6H PRN (Reason: pain) Qty: 30 0RF morphine 15 mg tablet 15 mg PO TID PRN (Reason: pain) Qty: 12 0RF Rx Instructions: partial fill okay; Partial Fill upon patient request. ondansetron 4 mg tablet,disintegrating 4 mg PO Q8H PRN (Reason: nausea and vomiting) Qty: 20 0RF diclofenac sodium [Voltaren Arthritis Pain] 1 % gel 2 g topical .B.i.d. Qty: 100 0RF Rx Instructions: Apply to affected area twice daily Referrals: Physician,Unknown J [Primary Care Provider] - 2 days Stand Alone Forms: Work/School Release
[2022-07-29 21:39] LABS: Influenza A PCR NEGATIVE (Negative); Influenza B PCR NEGATIVE (Negative); Resp Syncy Virus RNA Qual PCR NEGATIVE (Negative); SARS COV2 PCR INHOUSE POSITIVE (Negative)
== END 2022-07-29 22:06 | disposition home or self-care (01) ==
LOC: HO.ED 22:03
PROVIDERS: Emergency Provider Emergency Medicine
DX: U07.1 COVID-19 (principal); R06.02 Shortness of breath; J45.909 Unspecified asthma, uncomplicated; Z79.899 Other long term (current) drug therapy
CPT/HCPCS: 0241U; 71045; 99282; 99283

== ENCOUNTER 2023-01-31 04:40 | Emergency (ER) | payer OTHER, SELFPAY ==
--- NOTE | ~2023-01-31 | CT_ITS ---
EXAMINATION: CT SOFT TISSUE NECK WITHOUT CONTRAST CLINICAL INFORMATION: Right-sided pain. COMPARISON: None available. TECHNIQUE: Helical imaging was performed in the axial plane with generation of coronal and sagittal reformatted images. This CT examination was performed using dose optimization techniques as appropriate, variously including the following: *Automated exposure control *Adjustment of mA and/or kV according to patient size (this includes techniques or standardized protocols for targeted exams where dose is matched to indication/reason for exam; i.e. extremities or head) *Use of iterative reconstruction technique DLP: 791 mGy-cm FINDINGS: No cervical adenopathy is identified. The parotid glands are homogeneous in attenuation. The submandibular glands are normal. No contour abnormality or pathologic enhancement is seen within the oral cavity or pharyngeal mucosal space. The laryngeal structures are normal. The parapharyngeal fat is preserved. The carotid sheath vasculature opacify normally. No extra mucosal soft tissue mass or fluid collection is seen. No retropharyngeal fluid collection is seen. The thyroid gland is normal. The superior mediastinum is unremarkable. The lung apices are clear. The mastoid air cells and visualized portions of the paranasal sinuses are well-aerated. The temporomandibular joints are normal. No periapical disease is identified. The imaged portions of the brain parenchyma are unremarkable. Small endplate osteophytes at C5-C6. Facet arthropathy throughout cervical spine. This leads to varying degrees of foraminal narrowing throughout the cervical spine. CT/CT soft tissue neck wo IV con IMPRESSION: No potential etiology for the patient's right neck pain is identified, apart from potentially radicular etiologies. No lymphadenopathy.
[2023-01-31 04:46] VITALS: BMI 37.2
[2023-01-31 04:52] VITALS: BP 129/63; PULSE 82; RESP 18; TEMP 36.5; O2SAT 96
--- NOTE | 2023-01-31 04:55 | PC.NURSE ---
aox4 c/o R shoulder pain that radiates to R side of neck no apparent distress pain began in shoulder 3 wks ago, pt believes she may have pulled a muscle at work pain has increased over time now radiating to the R side of the neck
--- NOTE | 2023-01-31 05:00 | ED_ITS ---
HPI - General Adult General Chief complaint: General Medical Stated complaint: Neck pain Time Seen by Provider: 01/31/23 05:00 Source: patient Mode of arrival: ambulatory Limitations: no limitations History of Present Illness HPI narrative: Patient complaining of atraumatic pain in the right side of the neck in the sternocleidomastoid area and the right trapezius for last 3 weeks increases on movement no paresthesia nose midline cervical pain no motor weakness no sore throat no history of cancer no swelling no fever or chills Related Data Previous Rx's Medication Instructions Recorded albuterol sulfate 90 mcg/actuation 1 inh inhalation QID PRN shortness 12/14/21 aerosol inhaler of breath or wheezing #8.5 grams azithromycin 250 mg tablet See Rx Instructions PO .COMPLEX #6 12/14/21 tabs codeine 10 mg-guaifenesin 100 mg/5 5 ml PO Q6H PRN cold symptoms #120 12/14/21 mL oral liquid (Guaifenesin AC) mL prednisone 20 mg tablet 40 mg PO DAILY rash 5 days #10 tabs 12/14/21 cyclobenzaprine 10 mg tablet 10 mg PO TID PRN muscle spasm #14 04/17/22 tabs ibuprofen 600 mg tablet 600 mg PO Q6H PRN pain #30 tabs 04/17/22 morphine 15 mg immediate release 15 mg PO TID PRN pain #12 tabs 04/17/22 tablet ondansetron 4 mg disintegrating 4 mg PO Q8H PRN nausea and 04/17/22 tablet vomiting #20 tabs diclofenac sodium 1 % topical gel 2 g topical .B.i.d. #100 grams 06/18/22 (Voltaren Arthritis Pain) albuterol sulfate 90 mcg/actuation 2 inh inhalation Q4-6H PRN 07/29/22 breath activated powder inhaler shortness of breath or wheezing #1 ea prednisone 20 mg tablet 40 mg PO DAILY 5 days #10 tabs 07/29/22 cyclobenzaprine 10 mg tablet 10 mg PO Q8H #20 tabs 01/31/23 tramadol 50 mg tablet 50 mg PO Q6H PRN pain #20 tabs 01/31/23 Allergies Allergy/AdvReac Type Severity Reaction Status Date / Time peanut [PEANUT] Allergy Severe ANAPHYLAXIS Verified 06/18/22 02:54 banana Allergy Itching Verified 06/18/22 02:54 Review of Systems Review of Systems: Yes all other systems are reviewed and are negative [facility] Past Medical History Medical History Afib Anxiety Asthma Bipolar 1 disorder Social History Social History Alcohol intake: never Patient Tobacco Use Status: Never used Tobacco Smoked in Last 30 Days: Yes Use of substances other than those prescribed or required for medical reasons: Yes Substance Use Type: Marijuana Advance Directives: No Advance Directives Information Provided: Yes Patient : No Physical Exam ED Vital Signs: Vital Signs - 24 hr 01/31/23 04:52 Temperature 97.7 F Pulse Rate 82 Respiratory Rate 18 Blood Pressure 129/63 Pulse Oximetry 96 Oxygen Delivery Method Room Air BMI result Body Mass Index 37.2 HENMT Head: Yes normal to inspection Face and sinus: Yes normal facial exam Mouth: Normal oral and palatal mucosa present Neck Neck: Yes normal visual inspection, Yes full ROM, Yes no lymphadenopathy, Yes trachea midline and Yes supple Thyroid: Thyroid normal Carotids: normal carotid upstroke Neck images: 1. Tenderness and left SCM area? Lymph node palpable no bruit 2. Tender right trapezius area Medications Administered Discontinued Medications Generic Name Dose Route Start Last Admin Trade Name Freq PRN Reason Stop Dose Admin Cyclobenzaprine HCl 10 mg 01/31/23 05:07 01/31/23 05:26 Cyclobenzaprine Hcl 10 Mg Tablet PO 01/31/23 05:08 10 mg ONCE ONE Administration Tramadol HCl 50 mg 01/31/23 05:07 01/31/23 05:26 Tramadol Hcl 50 Mg Tablet PO 01/31/23 05:08 50 mg ONCE ONE Administration Medical Decision Making Medical Decision Making MDM Narrative: Patient's CT scan of the neck is negative for lymphadenopathy pain likely musculoskeletal pain discharged on tramadol and Flexeril Discharge Plan Discharge Clinical Impression: Musculoskeletal neck pain Patient Disposition: Home, Self-Care Instructions: Musculoskeletal Pain (ED) Additional Instructions: Take pain medication muscle relaxant as prescribed Follow up with PCP if not better Prescriptions: New cyclobenzaprine 10 mg tablet 10 mg PO Q8H Qty: 20 0RF tramadol 50 mg tablet 50 mg PO Q6H PRN (Reason: pain) Qty: 20 0RF No Action albuterol sulfate 90 mcg/actuation HFA aerosol inhaler 1 inh inhalation QID PRN (Reason: shortness of breath or wheezing) Qty: 8.5 0RF azithromycin 250 mg tablet See Rx Instructions .ROUTE .COMPLEX Qty: 6 0RF Rx Instructions: take 500 mg today (day 1), then 250 mg for 4 days (days 2-5) codeine-guaifenesin [Guaifenesin AC] 10-100 mg/5 mL liquid 5 ml PO Q6H PRN (Reason: cold symptoms) Qty: 120 0RF prednisone 20 mg tablet 40 mg PO DAILY 5 Days Qty: 10 0RF cyclobenzaprine 10 mg tablet 10 mg PO TID PRN (Reason: muscle spasm) Qty: 14 0RF ibuprofen 600 mg tablet 600 mg PO Q6H PRN (Reason: pain) Qty: 30 0RF morphine 15 mg tablet 15 mg PO TID PRN (Reason: pain) Qty: 12 0RF Rx Instructions: partial fill okay; Partial Fill upon patient request. ondansetron 4 mg tablet,disintegrating 4 mg PO Q8H PRN (Reason: nausea and vomiting) Qty: 20 0RF diclofenac sodium [Voltaren Arthritis Pain] 1 % gel 2 g topical .B.i.d. Qty: 100 0RF Rx Instructions: Apply to affected area twice daily albuterol sulfate 90 mcg/actuation aerosol powdr breath activated 2 inh inhalation Q4-6H PRN (Reason: shortness of breath or wheezing) Qty: 1 0RF prednisone 20 mg tablet 40 mg PO DAILY 5 Days Qty: 10 0RF
[2023-01-31] MEDS: Cyclobenzaprine HCl 10 MG TABLET PO (05:26)
[2023-01-31] MEDS: traMADoL HCL 50 MG TABLET PO (05:26)
[2023-01-31 06:36] VITALS: BP 140/79; PULSE 80; TEMP 36.7; O2SAT 96
--- NOTE | 2023-01-31 06:54 | PC.NURSE ---
Discharge instructions given and explained to pt No apparent distress, no sob, able to speak in full sentences aox4 ambulates safely/independently all of pt's questions answered
== END 2023-01-31 06:54 | disposition home or self-care (01) ==
PROVIDERS: Emergency Provider Internal Medicine
DX: M54.2 Cervicalgia (principal); Z79.899 Other long term (current) drug therapy
CPT/HCPCS: 70490; 99284

== ENCOUNTER 2023-02-18 05:32 | Emergency (ER) | payer OTHER, SELFPAY ==
[2023-02-18 05:36] VITALS: BP 143/87; PULSE 89; RESP 18; TEMP 36.3; O2SAT 95; BMI 37.2
--- NOTE | 2023-02-18 06:38 | ED.NECK ---
HPI - Neck Pain/Injury General Chief Complaint: Neck Pain/Injury Stated Complaint: neck pain right side Time Seen by Provider: 02/18/23 06:34 Source: patient, RN notes reviewed and old records reviewed Mode of arrival: ambulatory Limitations: no limitations History of Present Illness HPI Narrative: 42 year old female with history of afib, anxiety, asthma, and bipolar 1 disorder presenting with continued right lateral neck pain/stiffness x24 hours. She was evaluated at our facility 2 wks ago with negative CT and sent home on tramadol and flexeril.Her symptoms had resolved however worked a double shift last night and began having left lateral neck pain/ stiffness- notes it feels similar to her episode 2 weeks ago. Pain is sharp and worse with palpation of the area. She has tried ice/ heat, massage, and a muscle relaxer without relief, prompting her to come to the ED. Denies vision changes, headache, fever, chest pain, SOB, back pain, numbness, tingling, or weakness down the right arm. Denies injury/ trauma to the neck. MD complaint: neck pain Related Data Previous Rx's Medication Instructions Recorded albuterol sulfate 90 mcg/actuation 1 inh inhalation QID PRN shortness 12/14/21 aerosol inhaler of breath or wheezing #8.5 grams azithromycin 250 mg tablet See Rx Instructions PO .COMPLEX #6 12/14/21 tabs codeine 10 mg-guaifenesin 100 mg/5 5 ml PO Q6H PRN cold symptoms #120 12/14/21 mL oral liquid (Guaifenesin AC) mL prednisone 20 mg tablet 40 mg PO DAILY rash 5 days #10 tabs 12/14/21 cyclobenzaprine 10 mg tablet 10 mg PO TID PRN muscle spasm #14 04/17/22 tabs ibuprofen 600 mg tablet 600 mg PO Q6H PRN pain #30 tabs 04/17/22 morphine 15 mg immediate release 15 mg PO TID PRN pain #12 tabs 04/17/22 tablet ondansetron 4 mg disintegrating 4 mg PO Q8H PRN nausea and 04/17/22 tablet vomiting #20 tabs diclofenac sodium 1 % topical gel 2 g topical .B.i.d. #100 grams 06/18/22 (Voltaren Arthritis Pain) albuterol sulfate 90 mcg/actuation 2 inh inhalation Q4-6H PRN 07/29/22 breath activated powder inhaler shortness of breath or wheezing #1 ea prednisone 20 mg tablet 40 mg PO DAILY 5 days #10 tabs 07/29/22 cyclobenzaprine 10 mg tablet 10 mg PO Q8H #20 tabs 01/31/23 tramadol 50 mg tablet 50 mg PO Q6H PRN pain #20 tabs 01/31/23 acetaminophen 500 mg tablet 500 mg PO Q6H PRN fever or pain 02/18/23 (Tylenol Extra Strength) #14 tabs cyclobenzaprine 5 mg tablet 5 mg PO Q8H PRN pain (scale score 02/18/23 7-10) 5 days #14 tabs lidocaine 5 % topical patch 1 patch topical DAILY PRN pain #30 02/18/23 (Lidoderm) ea naproxen 500 mg tablet 500 mg PO BID PRN pain 10 days #20 02/18/23 tabs Allergies Allergy/AdvReac Type Severity Reaction Status Date / Time peanut [PEANUT] Allergy Severe ANAPHYLAXIS Verified 06/18/22 02:54 banana Allergy Itching Verified 06/18/22 02:54 Review of Systems Review of Systems: Constitutional: No Fever, No Chills, No Night Sweats, No Fatigue, No Malaise Eyes: No Eye Pain, No Swelling, No Redness, No Foreign Body, No Discharge, No Vision Changes Cardiovascular: No Chest Pain, No SOB, No Dyspnea on Exertion, No Orthopnea, No Edema, No Palpitations Respiratory: No Cough, No Sputum, No Wheezing, No Smoke Exposure, No Dyspnea Gastrointestinal: No Nausea, No Vomiting Musculoskeletal: + joint pain, + Myalgias, No Joint Swelling Skin: No Skin Lesions, No rash Neuro: No Weakness, No Numbness, No Paresthesias, No Loss of Consciousness, No Dizziness, No Headache Heme/Lymph: No Bruising, No Bleeding, No Lymphadenopathy Yes all other systems are reviewed and are negative Constitutional: Constitutional: Reports as per [facility] Past Medical History Attestation statement: The following information was validated with the patient. Source: old records reviewed Medical History Afib Anxiety Asthma Bipolar 1 disorder Social History Social History Alcohol intake: never Patient Tobacco Use Status: Never used Tobacco Substance Use Type: Marijuana Advance Directives: No Advance Directives Information Provided: Yes Physical Exam Vital Signs: Vital Signs: Last Vital Signs Temp 97.3 F 02/18/23 05:36 Pulse 89 02/18/23 05:36 Resp 18 02/18/23 05:36 BP 143/87 H 02/18/23 05:36 Pulse Ox 95 02/18/23 05:36 O2 Del Method Room Air 02/18/23 05:36 BMI result Body Mass Index 37.2 Const: General: cooperative, healthy appearing and no acute distress Nutritional Appearance: obese Orientation/consciousness: patient oriented x3 Limitations: no limitations HEENT: Head: Yes normal to inspection and Yes atraumatic Ears: hearing grossly normal bilaterally, external ears normal, TM's normal bilaterally and mastoids normal General nose exam: Normal external nose present Face and sinus: Yes normal facial exam Mouth: Normal oral and palatal mucosa present and no drooling Teeth and gingiva: dentition normal Throat: Yes posterior oropharynx normal, Yes uvula midline and No peritonsillar mass Eyes: General: appearance normal, both eyes and all related structures Pupils: Equal, round and reactive pupils present EOM: EOMs intact bilaterally Neck: Other: No erythema, edema, ecchymosis, or obvious deformity, + decreased range of motion to the right + tenderness to palpation over the right anterior cervical chain and trapezius muscle, no midline cervical tenderness or step offs, no focal deficits, neurovasclarly intact distally Neck: Yes normal visual inspection, Yes no lymphadenopathy, Yes no meningeal signs, Yes trachea midline, Yes supple and No anterior neck swelling Lymphatic: no lymphadenopathy noted Resp: Effort & Inspection: normal respiratory effort and no respiratory distress Auscultation: clear to auscultation bilaterally Cardio: Rate: regular rate Heart sounds: S1 normal heart sound present and S2 normal heart sound present Peripheral pulses: radial pulses present and ulnar radial pulses present GI: Inspection: Yes normal to inspection Palpation (GI): Soft to palpation, nontender, no guarding and not rigid Back/Spine/Pelvis: Other: No midline cervical/thoracic/lumbar spinous tenderness/step-off or deformity Skin: Rashes: no rashes Wounds: no wounds Neuro: General: patient oriented x3, gait normal, tone normal, moves all extremities, no meningeal signs, no focal motor deficits and CN's II-XI intact bilaterally Cranial nerves: Yes CN's II-XII intact bilaterally and Yes Equal, round and reactive pupils present Gait exam (Neuro): Normal gait present Motor exam (neuro): 5/5 motor strength present throughout Extrem: General: Yes normal to inspection Medications Administered Discontinued Medications Generic Name Dose Route Start Last Admin Trade Name Efrain PRN Reason Stop Dose Admin Diazepam 5 mg 02/18/23 07:02 02/18/23 07:14 Diazepam 2 Mg Tablet PO 02/18/23 07:03 5 mg ONCE ONE Administration Lidocaine 1 patch 02/18/23 07:02 02/18/23 07:14 Lidocaine 4 % Patch Adh..Patch TRANSDERMA 02/18/23 07:03 1 patch ONCE ONE Administration Protocol Medical Decision Making Medical Decision Making MDM Narrative: 42 year old female with history of afib, anxiety, asthma, and bipolar 1 disorder presenting with continued right lateral neck pain/stiffness x24 hours. Vital signs stable. Physical exam notable for tenderness to palpation over the right anterior cervical chain and trapezius muscle with decreased cervical range of motion to the right. No focal deficits. Neurovascularly intact distally. Clinical suspicion for muscle strain vs cervical radiculopathy. Less likely cervical fracture, cervical dissection, mastoiditis, parotitis, STAPLE SIDE LASTER Plan: pain control and re-evaluation I considered CT cervical spine however patient presenting with similar symptoms to 2 weeks ago and her neck pain seems more msk in nature, reproducible pain. Non focal. 0800--on re-evaluation patient feeling better with valium and lidoderm patch and requesting to go home. Will send the patient home with muscle relaxer and pain control. Patient expresses understanding with the plan. Patient is stable for discharge. They verbalized understanding and feel safe for discharge at this time. Differential Diagnosis Differential Diagnoses: The differential diagnosis associated with the presentation includes As above Radiology Impression Discussion of test interpretation with radiology: I have reviewed the radiologist's reading. External Record Review External record reviewed: Inpatient record, Office record, Outpatient record, Prior outpatient labs, Prior outpatient radiology, Primary care record and Outside ED record Tests considered The following testing was considered but not selected: As above Prescription Management I considered prescription management with: Pain Medication Discharge Plan Discharge Clinical Impression: Neck muscle spasm, Strain of neck muscle Patient Disposition: Home, Self-Care Instructions: Muscle Spasm (ED) Additional Instructions: Your pain is likely musculoskeletal Flexeril is a muscle relaxer, take at night as it makes you drowsy, do not drive, drink alcohol, or operate machinery while taking it Naproxen as an anti-inflammatory / pain medication, take with food Lidoderm patches are numbing patches, apply to painful area In addition take Tylenol at home If symptoms persist or worsen, pain becomes unbearable, you developed urinary retention or incontinence, or weakness return to the ED Prescriptions: New acetaminophen [Tylenol Extra Strength] 500 mg tablet 500 mg PO Q6H PRN (Reason: fever or pain) Qty: 14 0RF lidocaine [Lidoderm] 5 % adhesive patch,medicated 1 patch topical DAILY MDD remove after 12 hours PRN (Reason: pain) Qty: 30 0RF Rx Instructions: leave on most painful area for up to 12 hrs naproxen 500 mg tablet 500 mg PO BID PRN (Reason: pain) 10 Days Qty: 20 0RF cyclobenzaprine 5 mg tablet 5 mg PO Q8H PRN (Reason: pain (scale score 7-10)) 5 Days Qty: 14 0RF No Action albuterol sulfate 90 mcg/actuation HFA aerosol inhaler 1 inh inhalation QID PRN (Reason: shortness of breath or wheezing) Qty: 8.5 0RF azithromycin 250 mg tablet See Rx Instructions .ROUTE .COMPLEX Qty: 6 0RF Rx Instructions: take 500 mg today (day 1), then 250 mg for 4 days (days 2-5) codeine-guaifenesin [Guaifenesin AC] 10-100 mg/5 mL liquid 5 ml PO Q6H PRN (Reason: cold symptoms) Qty: 120 0RF prednisone 20 mg tablet 40 mg PO DAILY 5 Days Qty: 10 0RF cyclobenzaprine 10 mg tablet 10 mg PO TID PRN (Reason: muscle spasm) Qty: 14 0RF ibuprofen 600 mg tablet 600 mg PO Q6H PRN (Reason: pain) Qty: 30 0RF morphine 15 mg tablet 15 mg PO TID PRN (Reason: pain) Qty: 12 0RF Rx Instructions: partial fill okay; Partial Fill upon patient request. ondansetron 4 mg tablet,disintegrating 4 mg PO Q8H PRN (Reason: nausea and vomiting) Qty: 20 0RF diclofenac sodium [Voltaren Arthritis Pain] 1 % gel 2 g topical .B.i.d. Qty: 100 0RF Rx Instructions: Apply to affected area twice daily albuterol sulfate 90 mcg/actuation aerosol powdr breath activated 2 inh inhalation Q4-6H PRN (Reason: shortness of breath or wheezing) Qty: 1 0RF prednisone 20 mg tablet 40 mg PO DAILY 5 Days Qty: 10 0RF cyclobenzaprine 10 mg tablet 10 mg PO Q8H Qty: 20 0RF tramadol 50 mg tablet 50 mg PO Q6H PRN (Reason: pain) Qty: 20 0RF Referrals: Physician,None [Primary Care Provider] - Stand Alone Forms: Work/School Release Interventions: ED Discharge Assessment Last Done: 02/18/23 08:14 Discharge Date/Time: 02/18/23 08:15
[2023-02-18] MEDS: Lidocaine 4 % Patch ADH..PATCH 1 PATCH TRANSDERMA (07:14)
[2023-02-18] MEDS: diazePAM 2 MG TABLET 5 MG PO (07:14)
--- NOTE | 2023-02-18 07:23 | PC.NURSE ---
medicated as ordered for non traumatic r neck and shoulder pain, has a ride coming
== END 2023-02-18 08:15 | disposition home or self-care (01) ==
PROVIDERS: Emergency Provider Emergency Medicine Emergency Medical Services
DX: M62.838 Other muscle spasm (principal); S16.1XXA Strain of muscle, fascia and tendon at neck level, initial encounter; X50.9XXA Other and unspecified overexertion or strenuous movements or postures, initial encounter; I48.91 Unspecified atrial fibrillation; Y93.9 Activity, unspecified; Y92.9 Unspecified place or not applicable; Y99.9 Unspecified external cause status
CPT/HCPCS: 99282; 99283

== ENCOUNTER 2023-06-17 21:54 | Emergency (ER) | payer OTHER, SELFPAY ==
--- NOTE | 2023-06-17 | ECG_ITS ---
Test Reason : CHEST TIGHTNESS Blood Pressure : / mmHG Vent. Rate : 099 BPM Atrial Rate : 099 BPM P-R Int : 130 ms QRS Dur : 078 ms QT Int : 354 ms P-R-T Axes : 068 -06 056 degrees QTc Int : 454 ms Normal sinus rhythm Low voltage QRS Nonspecific ST abnormality Abnormal ECG When compared with ECG of 16-JAN-2015 01:06, No significant changes seen Referred By: Generic ED Physician Electronically Signed By:CHARO WALL MD
[2023-06-17 21:57] VITALS: BP 142/79; PULSE 94; RESP 22; TEMP 36.3; O2SAT 94; BMI 39.7
--- NOTE | 2023-06-17 22:14 | ED.SOB ---
HPI - SOB/Dyspnea General Chief Complaint: Dyspnea Stated Complaint: asthma,wheezing,sob Time Seen by Provider: 06/17/23 22:11 Source: patient Mode of arrival: ambulatory Limitations: no limitations History of Present Illness HPI Narrative: Weather change and deodarizer in the carpet at work set her asthma off. Now with wheezing and shortness of breath, feels she needs steroids and breathing treatments MD elicited complaint: shortness of breath and asthma attack Pertinent past history: asthma Onset (ago): hour(s) Context: recent illness and smoke/fume exposure Timing: progressively worsening Severity: moderate Known history of: asthma Related Data Previous Rx's Medication Instructions Recorded albuterol sulfate 90 mcg/actuation 1 inh inhalation QID PRN shortness 12/14/21 aerosol inhaler of breath or wheezing #8.5 grams azithromycin 250 mg tablet See Rx Instructions PO .COMPLEX #6 12/14/21 tabs codeine 10 mg-guaifenesin 100 mg/5 5 ml PO Q6H PRN cold symptoms #120 12/14/21 mL oral liquid (Guaifenesin AC) mL prednisone 20 mg tablet 40 mg (2 x 20 mg) PO DAILY rash 5 12/14/21 days #10 tabs cyclobenzaprine 10 mg tablet 10 mg PO TID PRN muscle spasm #14 04/17/22 tabs ibuprofen 600 mg tablet 600 mg PO Q6H PRN pain #30 tabs 04/17/22 morphine 15 mg immediate release 15 mg PO TID PRN pain #12 tabs 04/17/22 tablet ondansetron 4 mg disintegrating 4 mg PO Q8H PRN nausea and 04/17/22 tablet vomiting #20 tabs diclofenac sodium 1 % topical gel 2 g topical .B.i.d. #100 grams 06/18/22 (Voltaren Arthritis Pain) albuterol sulfate 90 mcg/actuation 2 inh inhalation Q4-6H PRN 07/29/22 breath activated powder inhaler shortness of breath or wheezing #1 ea prednisone 20 mg tablet 40 mg (2 x 20 mg) PO DAILY 5 days 07/29/22 #10 tabs cyclobenzaprine 10 mg tablet 10 mg PO Q8H #20 tabs 01/31/23 tramadol 50 mg tablet 50 mg PO Q6H PRN pain #20 tabs 01/31/23 acetaminophen 500 mg tablet 500 mg PO Q6H PRN fever or pain 02/18/23 (Tylenol Extra Strength) #14 tabs cyclobenzaprine 5 mg tablet 5 mg PO Q8H PRN pain (scale score 02/18/23 7-10) 5 days #14 tabs lidocaine 5 % topical patch 1 patch topical DAILY PRN pain #30 02/18/23 (Lidoderm) ea naproxen 500 mg tablet 500 mg PO BID PRN pain 10 days #20 02/18/23 tabs ipratropium 0.5 mg-albuterol 3 mg 3 ml inhalation Q6H PRN shortness 06/17/23 (2.5 mg base)/3 mL nebulization of breath #90 mL soln prednisone 20 mg tablet 60 mg (3 x 20 mg) PO DAILY #12 tabs 06/17/23 Allergies Allergy/AdvReac Type Severity Reaction Status Date / Time peanut [PEANUT] Allergy Severe ANAPHYLAXIS Verified 06/18/22 02:54 banana Allergy Itching Verified 06/18/22 02:54 Review of Systems Review of Systems: Yes all other systems are reviewed and are negative Neurologic: Denies Sensory deficit (Neuro) ON LICENSE OF [facility] Past Medical History Medical History Anxiety Bipolar 1 disorder Afib Asthma Social History Social History Alcohol intake: never Patient Tobacco Use Status: Never used Tobacco Substance Use Type: Marijuana Advance Directives: No Advance Directives Information Provided: No Physical Exam Vital Signs: Vital Signs: Last Vital Signs Temp 97.3 F 06/17/23 21:57 Pulse 92 06/17/23 23:17 Resp 18 06/17/23 23:17 BP 142/79 H 06/17/23 21:57 Pulse Ox 94 06/17/23 21:57 O2 Del Method Room Air 06/17/23 21:57 BMI result Body Mass Index 39.7 Const: Other: obese female short of breath Nutritional Appearance: obese Orientation/consciousness: oriented to person and patient oriented x3 Limitations: no limitations HEENT: Head: Yes normal to inspection Ears: external ears normal General nose exam: Normal external nose present Mouth: Normal oral and palatal mucosa present and oropharynx normal Throat: Yes posterior oropharynx normal Eyes: General: appearance normal, both eyes and all related structures Neck: Other: supple Neck: Yes normal visual inspection Chest: Chest palpation & inspection: normal inspection of the chest Resp: Other: diffuse wheezing Cardio: Jugular venous distension: no JVD Rate: regular rate Rhythm: regular rhythm Heart sounds: S1 normal heart sound present and S2 normal heart sound present GI: Inspection: Yes normal to inspection Palpation (GI): Soft to palpation, nontender and No hepatosplenomegaly present Auscultation: normal bowel sounds : General: Yes no CVA tenderness Back/Spine/Pelvis: Back: no CVA tenderness Skin: General skin exam: no rashes or lesions noted Neuro: General: oriented to person and patient oriented x3 Cranial nerves: Yes CN's II-XII intact bilaterally Motor exam (neuro): 5/5 motor strength present throughout Sensory Exam: No Sensory deficit (Neuro) Extrem: General: Yes normal to inspection Psych: Appearance: grossly normal Course Reevaluation(s) Reevaluation #1: Patient breathing better will start prednisone and dc home Time: 23:43 Medications Administered Discontinued Medications Generic Name Dose Route Start Last Admin Trade Name Freq PRN Reason Stop Dose Admin Albuterol Sulfate 2.5 mg 06/17/23 22:24 06/17/23 22:29 Albuterol Sulfate (0.083%) 2.5 Mg/3 Ml Vial.Neb INHALE 06/17/23 22:25 2.5 mg ONCE ONE Administration Albuterol/Ipratropium 3 ml 06/17/23 23:13 06/17/23 23:17 Albuterol/Iprat 2.5/0.5mg 3 Ml Ampul.Neb INHALE 06/17/23 23:14 3 ml ONCE ONE Administration Medical Decision Making Differential Diagnosis Differential Diagnoses: The differential diagnosis associated with the presentation includes (Asthma exacerbation, pneumonia, cardiac ischemia) Admission/Observation Consideration of admission/observation: Escalation of care including admission/observation considered (upon arrival admission was considered) Lab Data MDM Lab Attestation statement: I reviewed the patient's lab results. (slight elevated WBC, normal troponin) 06/17/23 22:18 06/17/23 22:18 Labs: Lab Results 06/17/23 Range/Units 22:18 WBC 12.2 H (4.8-10.8) X10*3/uL RBC 4.68 (4.20-5.50) X10*6/uL Hgb 13.9 (12.0-16.0) g/dl Hct 41.4 (37.0-47.0) % MCV 88.5 (80.0-98.0) fL MCH 29.7 (27.0-33.0) pg MCHC 33.6 (31.0-35.0) g/dl RDW 13.0 (11.0-16.0) % Plt Count 321 (160-400) X10*3/uL MPV 9.2 L (9.4-12.3) fL Immature Gran % (Auto) 0.2 (0.0-0.4) % Neut % (Auto) 55.4 (45-73) % Lymph % (Auto) 34.0 (20-40) % [place] % (Auto) 5.7 (2-11) % Eos % (Auto) 4.3 H (0-4) % Baso % (Auto) 0.4 (0-2) % Lymph # (Auto) 4.1 (1.2-4.9) X10*3/uL [place] # (Auto) 0.7 (0.1-1.2) X10*3/uL Eos # (Auto) 0.5 H (0.0-0.4) X10*3/uL Baso # (Auto) 0.1 (0.0-0.2) X10*3/uL Abs Immat Gran (auto) 0.03 (0.00-0.03) X10*3/uL Absolute Neuts (auto) 6.8 (2.0-8.3) x10*3/uL Absolute Nucleated RBC 0.000 (0.0-0.012) X10*3/uL Nucleated RBC % (auto) 0.0 (0.0-0.2) /100WBC Sodium 141 (135-145) mmol/L Potassium 3.8 (3.3-5.1) mmol/L Chloride 105 (96-108) mmol/L Carbon Dioxide 25 (22-29) mmol/L Anion Gap 15 (12-20) BUN 13 (9-16) mg/dL Creatinine 0.65 (0.5-1.4) mg/dL Estim Creat Clear Calc 149.3 Estimated GFR > 60 Random Glucose 89 (60-115) mg/dL Calcium 9.8 (8.4-10.2) mg/dL Troponin I High Sens < 2.7 (<3.5-17.0) ng/L Independent Interpretation I performed an independent interpretation of an: EKG (sinus 100, no st or twave changes) Tests considered The following testing was considered but not selected: CXR considered but patient is afebrile and has a long history of asthma Prescription Management I considered prescription management with: Antibiotic (no evidence of infection) Discharge Plan Discharge Clinical Impression: Asthma with exacerbation Patient Disposition: Home, Self-Care Instructions: Asthma (ED) Prescriptions: New ipratropium-albuterol 0.5 mg-3 mg(2.5 mg base)/3 mL solution for nebulization 3 ml inhalation Q6H PRN (Reason: shortness of breath) Qty: 90 0RF prednisone 20 mg tablet 60 mg PO DAILY Qty: 12 0RF No Action albuterol sulfate 90 mcg/actuation HFA aerosol inhaler 1 inh inhalation QID PRN (Reason: shortness of breath or wheezing) Qty: 8.5 0RF azithromycin 250 mg tablet See Rx Instructions .ROUTE .COMPLEX Qty: 6 0RF Rx Instructions: take 500 mg today (day 1), then 250 mg for 4 days (days 2-5) codeine-guaifenesin [Guaifenesin AC] 10-100 mg/5 mL liquid 5 ml PO Q6H PRN (Reason: cold symptoms) Qty: 120 0RF prednisone 20 mg tablet 40 mg PO DAILY 5 Days Qty: 10 0RF cyclobenzaprine 10 mg tablet 10 mg PO TID PRN (Reason: muscle spasm) Qty: 14 0RF ibuprofen 600 mg tablet 600 mg PO Q6H PRN (Reason: pain) Qty: 30 0RF morphine 15 mg tablet 15 mg PO TID PRN (Reason: pain) Qty: 12 0RF Rx Instructions: partial fill okay; Partial Fill upon patient request. ondansetron 4 mg tablet,disintegrating 4 mg PO Q8H PRN (Reason: nausea and vomiting) Qty: 20 0RF diclofenac sodium [Voltaren Arthritis Pain] 1 % gel 2 g topical .B.i.d. Qty: 100 0RF Rx Instructions: Apply to affected area twice daily albuterol sulfate 90 mcg/actuation aerosol powdr breath activated 2 inh inhalation Q4-6H PRN (Reason: shortness of breath or wheezing) Qty: 1 0RF prednisone 20 mg tablet 40 mg PO DAILY 5 Days Qty: 10 0RF acetaminophen [Tylenol Extra Strength] 500 mg tablet 500 mg PO Q6H PRN (Reason: fever or pain) Qty: 14 0RF lidocaine [Lidoderm] 5 % adhesive patch,medicated 1 patch topical DAILY MDD remove after 12 hours PRN (Reason: pain) Qty: 30 0RF Rx Instructions: leave on most painful area for up to 12 hrs naproxen 500 mg tablet 500 mg PO BID PRN (Reason: pain) 10 Days Qty: 20 0RF cyclobenzaprine 5 mg tablet 5 mg PO Q8H PRN (Reason: pain (scale score 7-10)) 5 Days Qty: 14 0RF cyclobenzaprine 10 mg tablet 10 mg PO Q8H Qty: 20 0RF tramadol 50 mg tablet 50 mg PO Q6H PRN (Reason: pain) Qty: 20 0RF Referrals: Physician,Unknown J [Primary Care Provider] - 5 days
[2023-06-17 22:22] LABS: MANUAL DIFF FLAG NO
[2023-06-17 22:23] LABS: Basophils Absolute Auto 0.1 X10*3/uL (0.0-0.2); Basophils Percent Auto 0.4 % (0-2); Eosinophils Absolute Auto 0.5 X10*3/uL (0.0-0.4); Eosinophils Percent Auto 4.3 % (0-4); Hematocrit 41.4 % (37.0-47.0); Hemoglobin 13.9 g/dl (12.0-16.0); Imm Gran Abs Auto 0.03 X10*3/uL (0.00-0.03); Imm Gran Pct Auto 0.2 % (0.0-0.4); Lymphocytes Absolute Auto 4.1 X10*3/uL (1.2-4.9); Mean Corpuscular HGB Conc 33.6 g/dl (31.0-35.0); Mean Corpuscular Hemoglobin 29.7 pg (27.0-33.0); Mean Corpuscular Volume 88.5 fL (80.0-98.0); Mean Platelet Volume 9.2 fL (9.4-12.3); Monocytes Absolute Auto 0.7 X10*3/uL (0.1-1.2); Monocytes Percent Auto 5.7 % (2-11); Neutrophils Absolute Auto 6.8 x10*3/uL (2.0-8.3); Neutrophils Percent Auto 55.4 % (45-73); Platelet Count 321 X10*3/uL (160-400); Red Blood Count 4.68 X10*6/uL (4.20-5.50); White Blood Count 12.2 X10*3/uL (4.8-10.8)
[2023-06-17 22:29] VITALS: PULSE 91; RESP 18; O2SAT 96
[2023-06-17] MEDS: Albuterol Sulfate (0.083%) 2.5 MG/3 ML VIAL.NEB INHALE (22:29)
[2023-06-17 22:34] LABS: Anion Gap 15 (12-20); Blood Urea Nitrogen 13 mg/dL (9-16); Calcium 9.8 mg/dL (8.4-10.2); Carbon Dioxide 25 mmol/L (22-29); Chloride 105 mmol/L (96-108); Creatinine Clr Calc Pharmacy 149.3; Estimated Glomerular Filt Rate > 60; Glucose Random 89 mg/dL (60-115); Potassium 3.8 mmol/L (3.3-5.1); Sodium 141 mmol/L (135-145)
[2023-06-17 22:44] LABS: Troponin-I High Sensitivity < 2.7 ng/L (<3.5-17.0)
[2023-06-17 23:17] VITALS: PULSE 92; RESP 18; O2SAT 93
[2023-06-17] MEDS: Albuterol/Iprat 2.5/0.5MG 3 ML AMPUL.NEB INHALE (23:17)
[2023-06-18 00:01] VITALS: BP 156/78; PULSE 94; RESP 12; TEMP 36.3; O2SAT 95
[2023-06-18] MEDS: predniSONE 20 MG TABLET 60 MG PO (00:09)
== END 2023-06-18 00:15 | disposition home or self-care (01) ==
PROVIDERS: Emergency Provider Emergency Medicine
DX: J45.901 Unspecified asthma with (acute) exacerbation (principal)
CPT/HCPCS: 36415; 80048; 84484; 85025; 93005; 94640; 99284; 99285

== ENCOUNTER 2023-06-26 16:55 | Emergency (ER) | payer OTHER, SELFPAY ==
[2023-06-26 17:49] VITALS: BP 143/94; PULSE 90; RESP 16; TEMP 36.9; O2SAT 96; BMI 37.2
--- NOTE | 2023-06-26 17:54 | ED.GENADULT ---
HPI - General Adult General Chief complaint: Back Pain/Injury Stated complaint: lower back pain Time Seen by Provider: 06/26/23 17:54 Source: patient, RN notes reviewed and old records reviewed Mode of arrival: ambulatory Limitations: no limitations History of Present Illness HPI narrative: 43-year-old female presents for evaluation of lower back pain. Patient reports a history of chronic back pain. She states ?I just have old injuries acting up. ? She denies any specific injury. There was no trauma to the area. Denies any weakness, numbness, tingling, bladder or bowel incontinence. She states that she has tried ibuprofen and lidocaine patches as well as hot and cold packs without any improvement No fevers or chills. No other complaints or concerns at this time Related Data Previous Rx's Medication Instructions Recorded albuterol sulfate 90 mcg/actuation 1 inh inhalation QID PRN shortness 12/14/21 aerosol inhaler of breath or wheezing #8.5 grams azithromycin 250 mg tablet See Rx Instructions PO .COMPLEX #6 12/14/21 tabs codeine 10 mg-guaifenesin 100 mg/5 5 ml PO Q6H PRN cold symptoms #120 12/14/21 mL oral liquid (Guaifenesin AC) mL prednisone 20 mg tablet 40 mg (2 x 20 mg) PO DAILY rash 5 12/14/21 days #10 tabs cyclobenzaprine 10 mg tablet 10 mg PO TID PRN muscle spasm #14 04/17/22 tabs ibuprofen 600 mg tablet 600 mg PO Q6H PRN pain #30 tabs 04/17/22 morphine 15 mg immediate release 15 mg PO TID PRN pain #12 tabs 04/17/22 tablet ondansetron 4 mg disintegrating 4 mg PO Q8H PRN nausea and 04/17/22 tablet vomiting #20 tabs diclofenac sodium 1 % topical gel 2 g topical .B.i.d. #100 grams 06/18/22 (Voltaren Arthritis Pain) albuterol sulfate 90 mcg/actuation 2 inh inhalation Q4-6H PRN 07/29/22 breath activated powder inhaler shortness of breath or wheezing #1 ea prednisone 20 mg tablet 40 mg (2 x 20 mg) PO DAILY 5 days 07/29/22 #10 tabs cyclobenzaprine 10 mg tablet 10 mg PO Q8H #20 tabs 01/31/23 tramadol 50 mg tablet 50 mg PO Q6H PRN pain #20 tabs 01/31/23 acetaminophen 500 mg tablet 500 mg PO Q6H PRN fever or pain 02/18/23 (Tylenol Extra Strength) #14 tabs cyclobenzaprine 5 mg tablet 5 mg PO Q8H PRN pain (scale score 02/18/23 7-10) 5 days #14 tabs lidocaine 5 % topical patch 1 patch topical DAILY PRN pain #30 02/18/23 (Lidoderm) ea naproxen 500 mg tablet 500 mg PO BID PRN pain 10 days #20 02/18/23 tabs ipratropium 0.5 mg-albuterol 3 mg 3 ml inhalation Q6H PRN shortness 06/17/23 (2.5 mg base)/3 mL nebulization of breath #90 mL soln prednisone 20 mg tablet 60 mg (3 x 20 mg) PO DAILY #12 tabs 06/17/23 cyclobenzaprine 10 mg tablet 10 mg PO TID PRN muscle spasm #20 06/26/23 tabs dexamethasone 4 mg tablet 4 mg PO BID #6 tabs 06/26/23 Allergies Allergy/AdvReac Type Severity Reaction Status Date / Time peanut [PEANUT] Allergy Severe ANAPHYLAXIS Verified 06/18/22 02:54 banana Allergy Itching Verified 06/18/22 02:54 Review of Systems Musculoskeletal: Musculoskeletal: Reports back pain, Denies numbness, Reports radiating pain into limb and Denies tingling Neurologic: Denies numbness and Denies tingling PMFSH Past Medical History Medical History Anxiety Bipolar 1 disorder Afib Asthma Social History Social History Alcohol intake: never Patient Tobacco Use Status: Never used Tobacco Substance Use Type: Marijuana Advance Directives: No Advance Directives Information Provided: No Physical Exam ED Vital Signs: Vital Signs - 24 hr 06/26/23 17:49 Temperature 98.5 F Pulse Rate 90 Respiratory Rate 16 Blood Pressure 143/94 H Pulse Oximetry 96 Oxygen Delivery Method Room Air BMI result Body Mass Index 37.2 Const General: healthy appearing, comfortable, no acute distress, alert and awake Nutritional Appearance: well nourished Orientation/consciousness: patient oriented x3 HENMT Head: Yes normocephalic and Yes atraumatic Eyes Eyelids: Yes eyelids normal Conjunctivae: conjunctivae normal Sclerae: sclerae normal Corneas: corneas normal Pupils: Equal, round and reactive pupils present EOM: EOMs intact bilaterally Neck Neck: Yes full ROM Resp Effort & Inspection: normal respiratory effort, able to speak in complete sentences and not labored Skin General skin exam: elasticity normal Neuro Other: Patient ambulates a steady, even gait General: patient oriented x3 Cranial nerves: Yes Equal, round and reactive pupils present and Yes Bilaterally intact EOM present Cognition (Neuro): normal cognition Extrem Other: Moving all extremities well without any obvious deformities Medical Decision Making Medical Decision Making MDM Narrative: 43-year-old female presents for evaluation of acute on chronic lower back pain Denies any specific injuries. Therefore I did not see any indication for emergent imaging at this time. I have no suspicion for infectious cause of her back pain. Will treat her symptomatically Differential Diagnosis Differential Diagnoses: The differential diagnosis associated with the presentation includes Sciatica Radiculopathy Muscle spasm Chronic back pain Discharge Plan Discharge Clinical Impression: Acute exacerbation of chronic low back pain Patient Disposition: Home, Self-Care Instructions: Back Pain (ED) Additional Instructions: You may continue to use lidocaine patches, ibuprofen and Tylenol following. Use dexamethasone twice daily for next 3 days. Use cyclobenzaprine as needed for muscle spasms This may make you sleepy, did not drink alcohol or drive after taking it Follow-up with your primary doctor, return for new or worsening symptoms Prescriptions: New dexamethasone 4 mg tablet 4 mg PO BID Qty: 6 0RF cyclobenzaprine 10 mg tablet 10 mg PO TID PRN (Reason: muscle spasm) Qty: 20 0RF No Action albuterol sulfate 90 mcg/actuation HFA aerosol inhaler 1 inh inhalation QID PRN (Reason: shortness of breath or wheezing) Qty: 8.5 0RF azithromycin 250 mg tablet See Rx Instructions .ROUTE .COMPLEX Qty: 6 0RF Rx Instructions: take 500 mg today (day 1), then 250 mg for 4 days (days 2-5) codeine-guaifenesin [Guaifenesin AC] 10-100 mg/5 mL liquid 5 ml PO Q6H PRN (Reason: cold symptoms) Qty: 120 0RF prednisone 20 mg tablet 40 mg PO DAILY 5 Days Qty: 10 0RF cyclobenzaprine 10 mg tablet 10 mg PO TID PRN (Reason: muscle spasm) Qty: 14 0RF ibuprofen 600 mg tablet 600 mg PO Q6H PRN (Reason: pain) Qty: 30 0RF morphine 15 mg tablet 15 mg PO TID PRN (Reason: pain) Qty: 12 0RF Rx Instructions: partial fill okay; Partial Fill upon patient request. ondansetron 4 mg tablet,disintegrating 4 mg PO Q8H PRN (Reason: nausea and vomiting) Qty: 20 0RF diclofenac sodium [Voltaren Arthritis Pain] 1 % gel 2 g topical .B.i.d. Qty: 100 0RF Rx Instructions: Apply to affected area twice daily albuterol sulfate 90 mcg/actuation aerosol powdr breath activated 2 inh inhalation Q4-6H PRN (Reason: shortness of breath or wheezing) Qty: 1 0RF prednisone 20 mg tablet 40 mg PO DAILY 5 Days Qty: 10 0RF acetaminophen [Tylenol Extra Strength] 500 mg tablet 500 mg PO Q6H PRN (Reason: fever or pain) Qty: 14 0RF lidocaine [Lidoderm] 5 % adhesive patch,medicated 1 patch topical DAILY MDD remove after 12 hours PRN (Reason: pain) Qty: 30 0RF Rx Instructions: leave on most painful area for up to 12 hrs naproxen 500 mg tablet 500 mg PO BID PRN (Reason: pain) 10 Days Qty: 20 0RF cyclobenzaprine 5 mg tablet 5 mg PO Q8H PRN (Reason: pain (scale score 7-10)) 5 Days Qty: 14 0RF cyclobenzaprine 10 mg tablet 10 mg PO Q8H Qty: 20 0RF tramadol 50 mg tablet 50 mg PO Q6H PRN (Reason: pain) Qty: 20 0RF ipratropium-albuterol 0.5 mg-3 mg(2.5 mg base)/3 mL solution for nebulization 3 ml inhalation Q6H PRN (Reason: shortness of breath) Qty: 90 0RF prednisone 20 mg tablet 60 mg PO DAILY Qty: 12 0RF Interventions: ED Discharge Assessment Last Done: 06/26/23 18:00
== END 2023-06-26 18:00 | disposition home or self-care (01) ==
PROVIDERS: Emergency Provider Internal Medicine; PCP Student in an Organized Health Care Education/Training Program
DX: M54.50 Low back pain, unspecified (principal); Z79.899 Other long term (current) drug therapy
CPT/HCPCS: 99282

== ENCOUNTER 2023-07-12 01:37 | Emergency (ER) | payer OTHER, SELFPAY ==
--- NOTE | 2023-07-12 | ECG_ITS ---
Test Reason : AFIB Blood Pressure : / mmHG Vent. Rate : 077 BPM Atrial Rate : 077 BPM P-R Int : 168 ms QRS Dur : 086 ms QT Int : 406 ms P-R-T Axes : 050 009 041 degrees QTc Int : 459 ms Normal sinus rhythm Low voltage QRS RSR' or QR pattern in V1 suggests right ventricular conduction delay Borderline ECG When compared with ECG of 17-JUN-2023 22:05, No significant change was found Referred By: Generic ED Physician Electronically Signed By:CHARO WALL MD
--- NOTE | ~2023-07-12 | CT_ITS ---
EXAMINATION: CT HEAD WITHOUT CONTRAST CLINICAL INFORMATION: Vertigo COMPARISON: None available. TECHNIQUE: Contiguous axial imaging was performed from the skull base to vertex without intravenous administration of contrast. This CT examination was performed using dose optimization techniques as appropriate, variously including the following: *Automated exposure control *Adjustment of mA and/or kV according to patient size (this includes techniques or standardized protocols for targeted exams where dose is matched to indication/reason for exam; i.e. extremities or head) *Use of iterative reconstruction technique DLP: 792 mGy-cm FINDINGS: There is no evidence of acute intracranial hemorrhage or territorial infarction. No abnormal mass-effect or midline shift is seen. [place] Angel to white matter differentiation is well preserved. No extra-axial fluid collections are identified. The ventricles are normal in size. There is no abnormal attenuation within the brain parenchyma. The osseous structures and soft tissues are normal. Small mucus retention cyst in the right sphenoid sinus. Mild mucosal thickening in the left maxillary sinus. The mastoid air cells are well-aerated. CT/CT head/brain wo IV con IMPRESSION: No acute intracranial pathology.
[2023-07-12 02:17] VITALS: BP 145/71; BP 168/88; PULSE 80; PULSE 82; RESP 18; TEMP 36.6; O2SAT 94; O2SAT 98; BMI 38.0
[2023-07-12 02:23] LABS: Basophils Percent Auto 0.3 % (0-2); Eosinophils Absolute Auto 0.4 X10*3/uL (0.0-0.4); Eosinophils Percent Auto 3.3 % (0-4); Hematocrit 40.6 % (37.0-47.0); Hemoglobin 13.4 g/dl (12.0-16.0); Imm Gran Abs Auto 0.04 X10*3/uL (0.00-0.03); Imm Gran Pct Auto 0.3 % (0.0-0.4); Lymphocytes Absolute Auto 1.9 X10*3/uL (1.2-4.9); Lymphocytes Percent Auto 16.1 % (20-40); MANUAL DIFF FLAG NO; Mean Corpuscular Hemoglobin 29.6 pg (27.0-33.0); Mean Corpuscular Volume 89.6 fL (80.0-98.0); Mean Platelet Volume 9.1 fL (9.4-12.3); Monocytes Absolute Auto 0.5 X10*3/uL (0.1-1.2); Monocytes Percent Auto 4.2 % (2-11); Neutrophils Absolute Auto 8.7 x10*3/uL (2.0-8.3); Neutrophils Percent Auto 75.8 % (45-73); Platelet Count 270 X10*3/uL (160-400); Red Blood Count 4.53 X10*6/uL (4.20-5.50); White Blood Count 11.5 X10*3/uL (4.8-10.8)
[2023-07-12 02:37] LABS: Alanine Aminotransferase 17 U/L (0-31); Albumin Level 4.2 g/dL (3.5-5.0); Alkaline Phosphatase 70 U/L (39-117); Anion Gap 11 (12-20); Aspartate Amino Transferase 13 U/L (5-31); Bilirubin Total 0.4 mg/dL (0.0-1.0); Blood Urea Nitrogen 14 mg/dL (9-16); Calcium 9.2 mg/dL (8.4-10.2); Carbon Dioxide 30 mmol/L (22-29); Chloride 103 mmol/L (96-108); Creatinine Clr Calc Pharmacy 139.5; Estimated Glomerular Filt Rate > 60; Glucose Random 130 mg/dL (60-115); Potassium 3.8 mmol/L (3.3-5.1); Sodium 140 mmol/L (135-145); Total Protein 6.9 g/dL (6.5-8.0)
[2023-07-12 02:59] VITALS: BP 148/109; PULSE 70; RESP 15; TEMP 36.5; O2SAT 97
[2023-07-12 04:31] VITALS: BP 147/85; PULSE 82; RESP 17; TEMP 36.6; O2SAT 92
--- NOTE | 2023-07-12 05:03 | ED.GENADULT ---
HPI - General Adult General Chief complaint: Nausea/Vomiting/Diarrhea Stated complaint: VOMITING, NAUSEA Time Seen by Provider: 07/12/23 03:01 History of Present Illness HPI narrative: Patient is a 43-year-old female presents today with sudden onset of spinning sensation especially made worse when she sits up. Patient claims when she stay still the symptoms improved. Positive nausea vomiting with the spinning sensation. There is no abdominal pain. There is no focal weakness. The symptom was very abrupt in onset. There is no sick contact. Patient is from home. No history diabetes, hypertension, mi, family history of SD. Positive history of atrial fibrillation in the past Related Data Previous Rx's Medication Instructions Recorded albuterol sulfate 90 mcg/actuation 1 inh inhalation QID PRN shortness 12/14/21 aerosol inhaler of breath or wheezing #8.5 grams azithromycin 250 mg tablet See Rx Instructions PO .COMPLEX #6 12/14/21 tabs codeine 10 mg-guaifenesin 100 mg/5 5 ml PO Q6H PRN cold symptoms #120 12/14/21 mL oral liquid (Guaifenesin AC) mL prednisone 20 mg tablet 40 mg (2 x 20 mg) PO DAILY rash 5 12/14/21 days #10 tabs cyclobenzaprine 10 mg tablet 10 mg PO TID PRN muscle spasm #14 04/17/22 tabs ibuprofen 600 mg tablet 600 mg PO Q6H PRN pain #30 tabs 04/17/22 morphine 15 mg immediate release 15 mg PO TID PRN pain #12 tabs 04/17/22 tablet ondansetron 4 mg disintegrating 4 mg PO Q8H PRN nausea and 04/17/22 tablet vomiting #20 tabs diclofenac sodium 1 % topical gel 2 g topical .B.i.d. #100 grams 06/18/22 (Voltaren Arthritis Pain) albuterol sulfate 90 mcg/actuation 2 inh inhalation Q4-6H PRN 07/29/22 breath activated powder inhaler shortness of breath or wheezing #1 ea prednisone 20 mg tablet 40 mg (2 x 20 mg) PO DAILY 5 days 07/29/22 #10 tabs cyclobenzaprine 10 mg tablet 10 mg PO Q8H #20 tabs 01/31/23 tramadol 50 mg tablet 50 mg PO Q6H PRN pain #20 tabs 01/31/23 acetaminophen 500 mg tablet 500 mg PO Q6H PRN fever or pain 02/18/23 (Tylenol Extra Strength) #14 tabs cyclobenzaprine 5 mg tablet 5 mg PO Q8H PRN pain (scale score 02/18/23 7-10) 5 days #14 tabs lidocaine 5 % topical patch 1 patch topical DAILY PRN pain #30 02/18/23 (Lidoderm) ea naproxen 500 mg tablet 500 mg PO BID PRN pain 10 days #20 02/18/23 tabs ipratropium 0.5 mg-albuterol 3 mg 3 ml inhalation Q6H PRN shortness 06/17/23 (2.5 mg base)/3 mL nebulization of breath #90 mL soln prednisone 20 mg tablet 60 mg (3 x 20 mg) PO DAILY #12 tabs 06/17/23 cyclobenzaprine 10 mg tablet 10 mg PO TID PRN muscle spasm #20 06/26/23 tabs dexamethasone 4 mg tablet 4 mg PO BID #6 tabs 06/26/23 meclizine 25 mg chewable tablet 25 mg PO TID PRN dizziness #20 tabs 07/12/23 (Antivert) Allergies Allergy/AdvReac Type Severity Reaction Status Date / Time peanut [PEANUT] Allergy Severe ANAPHYLAXIS Verified 06/18/22 02:54 banana Allergy Itching Verified 06/18/22 02:54 Review of Systems Review of Systems: Positive nausea vomiting positive spinning sensation with change in position PMFSH Past Medical History Medical History Anxiety Bipolar 1 disorder Afib Asthma Social History Alcohol intake: never Patient Tobacco Use Status: Never used Tobacco Substance Use Type: Marijuana Advance Directives: No Advance Directives Information Provided: No Physical Exam ED Vital Signs: Vital Signs - 24 hr 07/12/23 02:17 07/12/23 02:59 07/12/23 04:31 Temperature 97.9 F 97.7 F 97.9 F Pulse Rate 82 70 82 Respiratory Rate 18 15 17 Blood Pressure 168/88 H 148/109 H 147/85 H Pulse Oximetry 94 97 92 Oxygen Delivery Method Room Air Room Air Room Air BMI result Body Mass Index 38.0 Appearance: Alert. Oriented X3. No acute distress. Eyes: Pupils equal, round and reactive to light. ENT: Pharynx normal. Neck: Normal inspection. Neck supple. No lymph nodes noted. No crepitus CVS: Normal heart rate and rhythm. Pulses normal. Normal S1 and S2 Respiratory: No respiratory distress. Breath sounds normal. No Wheezing. No rales Abdomen: Soft and nontender. No rigidity. No distention. good BS x4 Skin: Skin warm and dry. Normal skin color. Normal skin turgor. Extremities: No lower extremity edema. Neurovascular intact to all extremities. No Lacerations. No Rash Neuro: Oriented X 3. No motor deficit. No sensory deficit. Moving all extermities. No slurred speech. Positive [place] Hallpike test when sitting patient up patient's symptoms of spinning vertigo resulted Medications Administered Discontinued Medications Generic Name Dose Route Start Last Admin Trade Name Freq PRN Reason Stop Dose Admin Sodium Chloride 1,000 mls @ 999 mls/hr 07/12/23 05:15 07/12/23 05:26 Ns IV 07/12/23 06:15 999 mls/hr .Q1H1M MANUELA Administration Meclizine HCl 25 mg 07/12/23 05:02 07/12/23 05:22 Meclizine Hcl 25 Mg Tablet PO 07/12/23 05:03 25 mg ONCE ONE Administration Medical Decision Making Medical Decision Making [facility] Narrative: History and symptoms consistent with vertigo. This symptom with extreme. Very abrupt in onset. Will give Antivert give IV fluids. Labs ordered. CT scan of the head was ordered to rule out the possibility of bleed/mass Patient's CT scan of the head was grossly negative. No evidence of bleeding patient after Antivert symptoms seems to have improved. Neurologically intact symptom was very abrupt was extreme on onset consistent with peripheral vertigo. Patient otherwise well. In stable condition. Will discharge home Differential Diagnosis Differential Diagnoses: The differential diagnosis associated with the presentation includes Peripheral vertigo versus central vertigo versus intracranial bleed versus mass Lab Data [facility] Lab Attestation statement: I reviewed the patient's lab results. 07/12/23 02:17 07/12/23 02:17 Labs: Lab Results 07/12/23 Range/Units 02:17 WBC 11.5 H (4.8-10.8) X10*3/uL RBC 4.53 (4.20-5.50) X10*6/uL Hgb 13.4 (12.0-16.0) g/dl Hct 40.6 (37.0-47.0) % MCV 89.6 (80.0-98.0) fL MCH 29.6 (27.0-33.0) pg MCHC 33.0 (31.0-35.0) g/dl RDW 13.0 (11.0-16.0) % Plt Count 270 (160-400) X10*3/uL MPV 9.1 L (9.4-12.3) fL Immature Gran % (Auto) 0.3 (0.0-0.4) % Neut % (Auto) 75.8 H (45-73) % Lymph % (Auto) 16.1 L (20-40) % [place] % (Auto) 4.2 (2-11) % Eos % (Auto) 3.3 (0-4) % Baso % (Auto) 0.3 (0-2) % Lymph # (Auto) 1.9 (1.2-4.9) X10*3/uL [place] # (Auto) 0.5 (0.1-1.2) X10*3/uL Eos # (Auto) 0.4 (0.0-0.4) X10*3/uL Baso # (Auto) 0.0 (0.0-0.2) X10*3/uL Abs Immat Gran (auto) 0.04 H (0.00-0.03) X10*3/uL Absolute Neuts (auto) 8.7 H (2.0-8.3) x10*3/uL Absolute Nucleated RBC 0.000 (0.0-0.012) X10*3/uL Nucleated RBC % (auto) 0.0 (0.0-0.2) /100WBC Sodium 140 (135-145) mmol/L Potassium 3.8 (3.3-5.1) mmol/L Chloride 103 (96-108) mmol/L Carbon Dioxide 30 H (22-29) mmol/L Anion Gap 11 L (12-20) BUN 14 (9-16) mg/dL Creatinine 0.68 (0.5-1.4) mg/dL Estim Creat Clear Calc 139.5 Estimated GFR > 60 Random Glucose 130 H (60-115) mg/dL Calcium 9.2 D (8.4-10.2) mg/dL Total Bilirubin 0.4 (0.0-1.0) mg/dL AST 13 (5-31) U/L ALT 17 (0-31) U/L Alkaline Phosphatase 70 (39-117) U/L Total Protein 6.9 (6.5-8.0) g/dL Albumin 4.2 (3.5-5.0) g/dL Beta HCG, Quant < 2 mIU/mL Independent Interpretation I performed an independent interpretation of an: EKG (Sinus heart rate is 75 MO QRS QTC within normal limits is no acute ST segment elevation noted.) and CT Scan (My interpretation patient's CT scan of the head was grossly negative for any acute evidence of bleeding) Radiology Impression Discussion of test interpretation with radiology: I have reviewed the radiologist's reading. Discharge Plan Discharge Clinical Impression: Vertigo Patient Disposition: Home, Self-Care Instructions: Vertigo (ED) Prescriptions: New meclizine [Antivert] 25 mg tablet,chewable 25 mg PO TID PRN (Reason: dizziness) Qty: 20 0RF No Action albuterol sulfate 90 mcg/actuation HFA aerosol inhaler 1 inh inhalation QID PRN (Reason: shortness of breath or wheezing) Qty: 8.5 0RF azithromycin 250 mg tablet See Rx Instructions .ROUTE .COMPLEX Qty: 6 0RF Rx Instructions: take 500 mg today (day 1), then 250 mg for 4 days (days 2-5) codeine-guaifenesin [Guaifenesin AC] 10-100 mg/5 mL liquid 5 ml PO Q6H PRN (Reason: cold symptoms) Qty: 120 0RF prednisone 20 mg tablet 40 mg PO DAILY 5 Days Qty: 10 0RF cyclobenzaprine 10 mg tablet 10 mg PO TID PRN (Reason: muscle spasm) Qty: 14 0RF ibuprofen 600 mg tablet 600 mg PO Q6H PRN (Reason: pain) Qty: 30 0RF morphine 15 mg tablet 15 mg PO TID PRN (Reason: pain) Qty: 12 0RF Rx Instructions: partial fill okay; Partial Fill upon patient request. ondansetron 4 mg tablet,disintegrating 4 mg PO Q8H PRN (Reason: nausea and vomiting) Qty: 20 0RF diclofenac sodium [Voltaren Arthritis Pain] 1 % gel 2 g topical .B.i.d. Qty: 100 0RF Rx Instructions: Apply to affected area twice daily albuterol sulfate 90 mcg/actuation aerosol powdr breath activated 2 inh inhalation Q4-6H PRN (Reason: shortness of breath or wheezing) Qty: 1 0RF prednisone 20 mg tablet 40 mg PO DAILY 5 Days Qty: 10 0RF acetaminophen [Tylenol Extra Strength] 500 mg tablet 500 mg PO Q6H PRN (Reason: fever or pain) Qty: 14 0RF lidocaine [Lidoderm] 5 % adhesive patch,medicated 1 patch topical DAILY MDD remove after 12 hours PRN (Reason: pain) Qty: 30 0RF Rx Instructions: leave on most painful area for up to 12 hrs naproxen 500 mg tablet 500 mg PO BID PRN (Reason: pain) 10 Days Qty: 20 0RF cyclobenzaprine 5 mg tablet 5 mg PO Q8H PRN (Reason: pain (scale score 7-10)) 5 Days Qty: 14 0RF cyclobenzaprine 10 mg tablet 10 mg PO Q8H Qty: 20 0RF tramadol 50 mg tablet 50 mg PO Q6H PRN (Reason: pain) Qty: 20 0RF ipratropium-albuterol 0.5 mg-3 mg(2.5 mg base)/3 mL solution for nebulization 3 ml inhalation Q6H PRN (Reason: shortness of breath) Qty: 90 0RF prednisone 20 mg tablet 60 mg PO DAILY Qty: 12 0RF dexamethasone 4 mg tablet 4 mg PO BID Qty: 6 0RF cyclobenzaprine 10 mg tablet 10 mg PO TID PRN (Reason: muscle spasm) Qty: 20 0RF Referrals: Tony Oropeza MD [Primary Care Provider] - 07/14/23
[2023-07-12] MEDS: Meclizine HCl 25 MG TABLET PO ×2 (05:22→07:52)
[2023-07-12] MEDS: 0.9 % Sodium Chloride 1,000 ML 999 ML IV (05:26)
[2023-07-12 05:30] LABS: HCG Quantitative < 2 mIU/mL
--- NOTE | 2023-07-12 07:11 | PC.NURSE ---
Pt provdied with DC paperwork, IV removed. This RN notified that pt was feeling unwell when she sat up to collect her belongings. This RN at bedside, pt reporting feeling hot/dizzy, states the room is spinning. MD Darby notified.
[2023-07-12] MEDS: LORazepam 1 MG TABLET PO (07:52)
--- NOTE | 2023-07-12 08:36 | PC.NURSE ---
After being discharged patient reports still feeling too dizzy to stand and ambulate. Provider aware. medicated per mar, pending results
[2023-07-12 08:42] VITALS: BP 159/81; PULSE 83; RESP 16; TEMP 36.6; O2SAT 95
--- NOTE | 2023-07-12 10:40 | PC.NURSE ---
Patient resting quietly, breathing even and unlabored
[2023-07-12 11:25] VITALS: BP 141/77; PULSE 90; RESP 18; TEMP 36.6; O2SAT 97
--- NOTE | 2023-07-12 12:10 | PC.NURSE ---
this RN resumed care of pt at this time. vss and up to date. resting comfortably w/ lights dimmed in no apparent distress. pt verbalized that dizziness has subsided at this time but she has a 9/10 headache and is requesting pain medication at this time. will notify provider. respirations even and unlabored at this time. call lazaro placed within reach.
== END 2023-07-12 12:32 | disposition home or self-care (01) ==
PROVIDERS: Emergency Provider Emergency Medicine Emergency Medical Services; PCP Student in an Organized Health Care Education/Training Program
DX: R42 Dizziness and giddiness (principal); R11.2 Nausea with vomiting, unspecified; I48.91 Unspecified atrial fibrillation; J45.909 Unspecified asthma, uncomplicated; Z79.899 Other long term (current) drug therapy
CPT/HCPCS: 36415; 70450; 80053; 84702; 85025; 93005; 96360; 99284; 99285

== ENCOUNTER 2023-08-11 15:08 | Outpatient (REF) | payer OTHER, SELFPAY ==
--- NOTE | 2023-08-15 08:21 | MHC.AU.HA1 ---
Hearing Aid Evaluation Date of Visit: 08/11/23 Historical Information: Description of Hearing: Mild sloping to moderately severe sensorineural hearing loss, bilaterally Summary: Jane is here for a hearing aid evaluation after receiving medical clearance from [facility]. 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 Jane reportedly wore hearing aids from [employer] for some time but they slipped out because she tends to perspire a lot at work. 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 Selected O[employer]on Real 2 miniRITE R in pink with skeleton molds. She plans to connect them to her iPhone. Impressions taken without incident. Will contact patient once order arrives. Hearing Aid Prescription: Based on the individual?s shared listening needs, communication environments, dexterity, desire for connectivity, and personal preferences, the following prescription for amplification has been made: Right ear: Make, Model, Color: O[employer]on Real 2 miniRITE R, pink Battery Size: Rechargeable Examination Scorer/Slim Tube: 2 85g Type of Earmold/Dome/CShell/SlimTip: skeleton mold Left ear: Left ear prescription to be same as Right Hearing Aid above: Make, Model, Color: O[employer]on Real 2 miniRITE R, pink Battery Size: Rechargeable Examination Scorer/Slim Tube: 2 85g Type of Earmold/Dome/CShell/SlimTip: skeleton mold Plan of Care: Patient wishes to purchase hearing aids as prescribed Action Taken/Action Needed: Earmold Impressions Taken Hearing Instrument Fitting to be scheduled when materials arrive Primary Diagnosis: H90.3 Bilateral Sensorineural Hearing Loss Signature: Provider: Juarez Meng, CCC-A
== END 2023-08-11 15:09 | disposition home or self-care (01) ==
LOC: HO.HAP 15:08
PROVIDERS: Visit Provider Otolaryngology
DX: Z46.1 Encounter for fitting and adjustment of hearing aid (principal); H90.3 Sensorineural hearing loss, bilateral
CPT/HCPCS: 92590; V5275

== ENCOUNTER 2023-09-25 14:32 | Outpatient (REF) | payer SELFPAY | END 2023-09-25 14:33 | disposition home or self-care (01) | LOC: HO.HAP 14:32 | PROVIDERS: Visit Provider Student in an Organized Health Care Education/Training Program | DX: Z13.89 Encounter for screening for other disorder (principal) ==

== ENCOUNTER 2023-11-08 22:34 | Emergency (ER) | payer OTHER, SELFPAY ==
[2023-11-08 23:04] VITALS: BP 148/90; PULSE 91; RESP 18; TEMP 37.1; O2SAT 97; BMI 38.0
[2023-11-08 23:43] LABS: Basophils Absolute Auto 0.1 X10*3/uL (0.0-0.2); Basophils Percent Auto 0.5 % (0-2); Eosinophils Absolute Auto 0.3 X10*3/uL (0.0-0.4); Eosinophils Percent Auto 3.1 % (0-4); Hematocrit 42.5 % (37.0-47.0); Hemoglobin 14.3 g/dl (12.0-16.0); Imm Gran Abs Auto 0.02 X10*3/uL (0.00-0.03); Imm Gran Pct Auto 0.2 % (0.0-0.4); Lymphocytes Absolute Auto 2.9 X10*3/uL (1.2-4.9); MANUAL DIFF FLAG NO; Mean Corpuscular HGB Conc 33.6 g/dl (31.0-35.0); Mean Corpuscular Hemoglobin 29.5 pg (27.0-33.0); Mean Corpuscular Volume 87.6 fL (80.0-98.0); Monocytes Absolute Auto 0.9 X10*3/uL (0.1-1.2); Monocytes Percent Auto 7.8 % (2-11); Neutrophils Absolute Auto 6.9 x10*3/uL (2.0-8.3); Neutrophils Percent Auto 62.4 % (45-73); Platelet Count 281 X10*3/uL (160-400); Red Blood Count 4.85 X10*6/uL (4.20-5.50); Red Cell Distribution Width 13.3 % (11.0-16.0)
[2023-11-08 23:57] LABS: Alanine Aminotransferase 19 U/L (0-31); Albumin Level 4.4 g/dL (3.5-5.0); Alkaline Phosphatase 88 U/L (39-117); Anion Gap 11 (12-20); Aspartate Amino Transferase 17 U/L (5-31); Bilirubin Total 0.4 mg/dL (0.0-1.0); Blood Urea Nitrogen 14 mg/dL (9-16); Calcium 9.3 mg/dL (8.4-10.2); Carbon Dioxide 28 mmol/L (22-29); Chloride 104 mmol/L (96-108); Creatinine Clr Calc Pharmacy 128.2; Estimated Glomerular Filt Rate > 60; Glucose Random 78 mg/dL (60-115); Potassium 3.5 mmol/L (3.3-5.1); Sodium 139 mmol/L (135-145); Total Protein 7.4 g/dL (6.5-8.0)
[2023-11-09 01:06] LABS: Appearance Urine Cloudy; Color Urine Yellow; Glucose Urine UA Negative (Negative); Leukocyte Esterase Urine Trace (Negative); Nitrite Urine Negative (Negative); Specific Gravity - Urine 1.025 (1.005-1.025); UMIC TRIGGER UACC YES; Urine Blood Negative (Negative); Urine Ketones Negative (Negative); Urine Protein Negative (Neg-Trace)
[2023-11-09 01:09] LABS: Bacteria Urine 3+ (None Seen); Hyaline Casts Urine 0-2 /LPF (0-2); RBC Urine 0-2 /HPF (0-2); UACC Culture Trigger YES
== END 2023-11-09 05:16 | disposition left against medical advice (07) ==
PROVIDERS: Emergency Provider Emergency Medicine
DX: R10.2 Pelvic and perineal pain (principal); Z79.899 Other long term (current) drug therapy
CPT/HCPCS: 36415; 80053; 81001; 85025; 87086; 99282; 99283

== ENCOUNTER 2024-03-18 05:16 | Emergency (ER) | payer OTHER, SELFPAY ==
--- NOTE | ~2024-03-18 | CT_ITS ---
EXAMINATION: CT ABDOMEN AND PELVIS WITH CONTRAST CLINICAL INFORMATION: Right-sided abdominal pain and distention with question obstruction or appendicitis COMPARISON: None available. TECHNIQUE: Multidetector volumetric images were obtained from the superior aspect of the liver through the pubic symphysis following administration 85 mL of Omnipaque 350 intravenous contrast. Sagittal and coronal reformatted images were obtained on the technologist's workstation. Oral contrast: No This CT examination was performed using dose optimization techniques as appropriate, variously including the following: *Automated exposure control *Adjustment of mA and/or kV according to patient size (this includes techniques or standardized protocols for targeted exams where dose is matched to indication/reason for exam; i.e. extremities or head) *Use of iterative reconstruction technique DLP: 1249 mGy-cm FINDINGS: LUNG BASES: The visualized lung bases are unremarkable. There is a 2 mm perifissural right middle lobe nodule (4:30). LIVER, GALLBLADDER, AND BILIARY TREE: The liver is enlarged measuring 21.2 cm in cephalocaudad dimension with decreased attenuation suggesting hepatic steatosis. No focal hepatic lesion or biliary ductal dilatation is present. The gallbladder is unremarkable with no evidence of radiopaque gallstones, gallbladder wall thickening, or obvious pericholecystic inflammatory changes. PANCREAS: Unremarkable. SPLEEN: Unremarkable. ADRENAL GLANDS: Unremarkable. KIDNEYS AND URETERS: The kidneys are normal in size, shape, and attenuation. No hydronephrosis, hydroureter, or calculi seen. No perinephric stranding. Bilateral benign Bosniak class I renal cysts are noted which require no additional imaging or follow-up. No solid renal masses are seen. BLADDER: Unremarkable. GASTROINTESTINAL TRACT: The small and large bowel are unremarkable. The appendix is unremarkable. ABDOMINAL WALL: No significant hernia is appreciated. This is a tiny periumbilical hernia seen containing only fat LYMPH NODES: Normal. VASCULAR: Unremarkable. PELVIC VISCERA: The uterus and adnexa are unremarkable. An IUD is present in good position within the uterus OSSEOUS STRUCTURES: Degenerative changes are present in the spine most marked from L4 through S1. CT/CT abdomen pelvis w IV con IMPRESSION: 1. A cause for the patient's right-sided abdominal pain and distention has not been found. The appendix is normal. 2. Incidental note made of an enlarged fatty liver, benign Bosniak class I renal cysts which need no further imaging or follow-up, and degenerative changes in the spine. An IUD is present in the uterus. Fleischner guidelines were followed.
[2024-03-18 05:25] VITALS: BP 172/97; PULSE 93; RESP 18; TEMP 36.8; O2SAT 97; BMI 39.7
--- NOTE | 2024-03-18 05:25 | ED_ITS ---
HPI - Abdominal Pain General Chief Complaint: Abdominal Pain Stated Complaint: Gastro bloating Time Seen by Provider: 03/18/24 05:24 Source: patient Mode of arrival: ambulatory Limitations: no limitations History of Present Illness ED Provider: Dr. Quintin Velazquez HPI narrative: 43-year-old female with a history of anxiety, bipolar disorder, atrial fibrillation on Xarelto, asthma who presents emergency department for evaluation of 3 days of abdominal pain, nausea, bloated sensation and excessive burping. Patient points to her epigastric area when asked to localize the pain. She states the pain is a burning/gassy-like pain which is mild to moderate in intensity. Patient states that she has had constant nausea but no vomiting. She states she has had poor oral intake secondary to her symptoms. Patient felt constipated, she took a laxative yesterday and states she had a large bowel movement. She states she has been passing less gas than usual. Patient had low-grade fever of 100.9 degrees F at home. She had chills and sweats. She noted urinary frequency but no dysuria. She denied rhinorrhea, sore throat, cough, chest pain, shortness of breath, dyspnea on exertion. She has not noticed any blood in her urine. Patient states that she had a 10 years ago. Related Data Previous Rx's ?Medication ?Instructions ?Recorded albuterol sulfate 90 mcg/actuation 1 inh inhalation QID PRN shortness 12/14/21 aerosol inhaler of breath or wheezing #8.5 grams azithromycin 250 mg tablet See Rx Instructions PO .COMPLEX #6 12/14/21 tabs codeine 10 mg-guaifenesin 100 mg/5 5 ml PO Q6H PRN cold symptoms #120 12/14/21 mL oral liquid (Guaifenesin AC) mL prednisone 20 mg tablet 40 mg (2 x 20 mg) PO DAILY rash 5 12/14/21 days #10 tabs cyclobenzaprine 10 mg tablet 10 mg PO TID PRN muscle spasm #14 04/17/22 tabs ibuprofen 600 mg tablet 600 mg PO Q6H PRN pain #30 tabs 04/17/22 morphine 15 mg immediate release 15 mg PO TID PRN pain #12 tabs 04/17/22 tablet ondansetron 4 mg disintegrating 4 mg PO Q8H PRN nausea and 04/17/22 tablet vomiting #20 tabs diclofenac sodium 1 % topical gel 2 g topical .B.i.d. #100 grams 06/18/22 (Voltaren Arthritis Pain) albuterol sulfate 90 mcg/actuation 2 inh inhalation Q4-6H PRN 07/29/22 breath activated powder inhaler shortness of breath or wheezing #1 ea prednisone 20 mg tablet 40 mg (2 x 20 mg) PO DAILY 5 days 07/29/22 #10 tabs cyclobenzaprine 10 mg tablet 10 mg PO Q8H #20 tabs 01/31/23 tramadol 50 mg tablet 50 mg PO Q6H PRN pain #20 tabs 01/31/23 acetaminophen 500 mg tablet 500 mg PO Q6H PRN fever or pain 02/18/23 (Tylenol Extra Strength) #14 tabs cyclobenzaprine 5 mg tablet 5 mg PO Q8H PRN pain (scale score 02/18/23 7-10) 5 days #14 tabs lidocaine 5 % topical patch 1 patch topical DAILY PRN pain #30 02/18/23 (Lidoderm) ea naproxen 500 mg tablet 500 mg PO BID PRN pain 10 days #20 02/18/23 tabs ipratropium 0.5 mg-albuterol 3 mg 3 ml inhalation Q6H PRN shortness 06/17/23 (2.5 mg base)/3 mL nebulization of breath #90 mL soln prednisone 20 mg tablet 60 mg (3 x 20 mg) PO DAILY #12 tabs 06/17/23 cyclobenzaprine 10 mg tablet 10 mg PO TID PRN muscle spasm #20 06/26/23 tabs dexamethasone 4 mg tablet 4 mg PO BID #6 tabs 06/26/23 meclizine 25 mg chewable tablet 25 mg PO TID PRN dizziness #20 tabs 07/12/23 (Antivert) Allergies Allergy/AdvReac Type Severity Reaction Status Date / Time peanut [PEANUT] Allergy Severe ANAPHYLAXIS Verified 03/18/24 05:27 banana Allergy Itching Verified 03/18/24 05:27 Review of Systems Review of Systems Yes all other systems are reviewed and are negative [facility] Past Medical History [facility] Narrative: Social history: She denies tobacco use. She denies alcohol use. She occasionally smokes marijuana. Medical History Anxiety Bipolar 1 disorder Afib Asthma Social History Social History Unable to assess alcohol history related to: Unknown Alcohol intake: never Patient Tobacco Use Status: Never used Tobacco Smoked in Last 30 Days: No Use of substances other than those prescribed or required for medical reasons: Yes Substance Use Type: Marijuana Substance Use Frequency: Chronic Longstanding Advance Directives: No Advance Directives Information Provided: Yes Do you have a plan to hurt others: No Plan Patient : No Physical Exam ED Vital Signs: Vital Signs - 24 hr 03/18/24 05:25 Temperature 98.2 F Pulse Rate 93 Respiratory Rate 18 Blood Pressure 172/97 H Pulse Oximetry 97 Oxygen Delivery Method Room Air BMI result Body Mass Index 39.7 Exam: General: Awake, alert in no distress, weight 118 kg, elevated BMI 39.7 kg per m2 Head: Normocephalic, atraumatic EENT: PERRL, Lids normal, sclera normal, conjunctiva normal, nose normal , ears normal, throat without erythema or exudates Neck: Supple, no adenopathy Lung: breath sounds symmetric, no wheezing, rales or rhonchi Chest: symmetric movement, nontender Heart: regular rate and rhythm, normal S1, S2 no murmurs or rubs Abdomen: soft, mild epigastric tenderness, moderate right upper quadrant and right lower quadrant tenderness, normal bowel sounds, no involuntary guarding Back: no vertebral tenderness, no CVAT Extremities: no deformities, moves all extremities symmetrically Neuro: Awake, alert, oriented, normal speech, cranial nerves intact, moves all extremities symmetrically Psych: Pleasant, cooperative Medical Decision Making Medical Decision Making MDM Narrative: 43-year-old female with a history of anxiety, bipolar disorder, atrial fibrillation on Xarelto, asthma, 10 years ago who presents emergency department for evaluation of 3 days of epigastric abdominal pain, nausea, bloated sensation and excessive burping. Patient had a low-grade fever, chills and diaphoresis. She felt constipated and took a laxative yesterday and had normal bowel movement but believes she has had decreased flatus. Exam did reveal epigastric, right upper quadrant and right lower quadrant tenderness Differential diagnosis: ?Includes but is not limited to gastritis, appendicitis, biliary disease, pancreatitis, bowel obstruction, partial bowel obstruction, diverticulitis, anemia, electrolyte abnormalities Following evaluation was ordered: CBC, CMP, quantitative beta-hCG, lactic acid, lipase, PT/INR, PTT, urinalysis, CT scan of the abdomen pelvis with IV and oral contrast Patient was initially treated with the following: IV insert, normal saline x1 L Course: 06:37 My interpretation patient's laboratory evaluation is as follows: WBC elevated 13,200 with a normal differential. H&H was normal 15.3 and 44.5. Coags were normal. CMP was normal. Lipase was normal. Quantitative beta-hCG was below detectable limits. At the end of my shift, the patient's CT scan of the abdomen pelvis with oral and IV contrast is not been performed yet, therefore the patient's care was turned over to my colleague, Dr. Campbell Admission/Observation Consideration of admission/observation: Escalation of care including admission/observation considered Lab Data MDM Lab Attestation statement: I reviewed the patient's lab results. 03/18/24 05:47 03/18/24 05:47 Labs: Lab Results 03/18/24 Range/Units 05:47 WBC 13.2 H (4.8-10.8) X10*3/uL RBC 5.16 (4.20-5.50) X10*6/uL Hgb 15.3 (12.0-16.0) g/dl Hct 44.5 (37.0-47.0) % MCV 86.2 (80.0-98.0) fL MCH 29.7 (27.0-33.0) pg MCHC 34.4 (31.0-35.0) g/dl RDW 12.8 (11.0-16.0) % Plt Count 330 (160-400) X10*3/uL MPV 9.1 L (9.4-12.3) fL Immature Gran % (Auto) 0.4 (0.0-0.4) % Neut % (Auto) 64.7 (45-73) % Lymph % (Auto) 26.8 (20-40) % [place] % (Auto) 6.3 (2-11) % Eos % (Auto) 1.4 (0-4) % Baso % (Auto) 0.4 (0-2) % Lymph # (Auto) 3.5 (1.2-4.9) X10*3/uL [place] # (Auto) 0.8 (0.1-1.2) X10*3/uL Eos # (Auto) 0.2 (0.0-0.4) X10*3/uL Baso # (Auto) 0.1 (0.0-0.2) X10*3/uL Abs Immat Gran (auto) 0.05 H (0.00-0.03) X10*3/uL Absolute Neuts (auto) 8.6 H (2.0-8.3) x10*3/uL Absolute Nucleated RBC 0.000 (0.0-0.012) X10*3/uL Nucleated RBC % (auto) 0.0 (0.0-0.2) /100WBC PT 11.5 (11.1-13.3) SEC INR 0.9 (0.9-1.1) APTT 32.1 (26.0-36.8) SEC Sodium 138 (135-145) mmol/L Potassium 3.5 (3.3-5.1) mmol/L Chloride 100 (96-108) mmol/L Carbon Dioxide 25 (22-29) mmol/L Anion Gap 17 (12-20) BUN 13 (9-16) mg/dL Creatinine 0.79 (0.5-1.4) mg/dL Estim Creat Clear Calc 122.8 Estimated GFR > 60 Random Glucose 109 (60-115) mg/dL Lactic Acid 0.9 (0.5-2.0) mmol/L Calcium 10.0 D (8.4-10.2) mg/dL Total Bilirubin 0.8 (0.0-1.0) mg/dL AST 16 (5-31) U/L ALT 21 (0-31) U/L Alkaline Phosphatase 89 (39-117) U/L Total Protein 7.8 (6.5-8.0) g/dL Albumin 4.7 (3.5-5.0) g/dL Lipase 29 (8-78) U/L Beta HCG, Quant < 2 mIU/mL Independent Interpretation I performed an independent interpretation of an: EKG Interpretation: My interpretation the patient's 12 EKG is as follows: Normal sinus rhythm with a rate of 86, normal [place] interval, QRS duration QTC interval, no ST segment elevation, no ST segment depression, no significant T-wave abnormalities, patient has Q-waves in lead 3, V1 and V2. Compared to EKG dated 07/12/2023 Q- waves are old and there is no significant change. Chronic Conditions Patient?s care impacted by: Other (Asthma, atrial fibrillation on Xarelto) Medications Administered Discontinued Medications Generic Name Dose Route Start Last Admin Trade Name Freq PRN Reason Stop Dose Admin Diatrizoate Meglum/Diatrizoate Sod 30 ml 03/18/24 06:04 03/18/24 06:04 Diatrizoate Meglumine, Sodium 30 Ml Solution PO 03/18/24 06:05 30 ml ONCE ONE Administration Sodium Chloride 1,000 mls @ 999 mls/hr 03/18/24 05:38 03/18/24 06:57 Ns IV 03/18/24 06:38 Infused .Q1H1M STA Infusion Discharge Plan Discharge Clinical Impression: Abdominal pain, Abdominal distension Patient Disposition: Still a Patient Prescriptions: No Action albuterol sulfate 90 mcg/actuation HFA aerosol inhaler 1 inh inhalation QID PRN (Reason: shortness of breath or wheezing) Qty: 8.5 0RF azithromycin 250 mg tablet See Rx Instructions .ROUTE .COMPLEX Qty: 6 0RF Rx Instructions: take 500 mg today (day 1), then 250 mg for 4 days (days 2-5) codeine-guaifenesin [Guaifenesin AC] 10-100 mg/5 mL liquid 5 ml PO Q6H PRN (Reason: cold symptoms) Qty: 120 0RF prednisone 20 mg tablet 40 mg PO DAILY 5 Days Qty: 10 0RF cyclobenzaprine 10 mg tablet 10 mg PO TID PRN (Reason: muscle spasm) Qty: 14 0RF ibuprofen 600 mg tablet 600 mg PO Q6H PRN (Reason: pain) Qty: 30 0RF morphine 15 mg tablet 15 mg PO TID PRN (Reason: pain) Qty: 12 0RF Rx Instructions: partial fill okay; Partial Fill upon patient request. ondansetron 4 mg tablet,disintegrating 4 mg PO Q8H PRN (Reason: nausea and vomiting) Qty: 20 0RF diclofenac sodium [Voltaren Arthritis Pain] 1 % gel 2 g topical .B.i.d. Qty: 100 0RF Rx Instructions: Apply to affected area twice daily albuterol sulfate 90 mcg/actuation aerosol powdr breath activated 2 inh inhalation Q4-6H PRN (Reason: shortness of breath or wheezing) Qty: 1 0RF prednisone 20 mg tablet 40 mg PO DAILY 5 Days Qty: 10 0RF acetaminophen [Tylenol Extra Strength] 500 mg tablet 500 mg PO Q6H PRN (Reason: fever or pain) Qty: 14 0RF lidocaine [Lidoderm] 5 % adhesive patch,medicated 1 patch topical DAILY MDD remove after 12 hours PRN (Reason: pain) Qty: 30 0RF Rx Instructions: leave on most painful area for up to 12 hrs naproxen 500 mg tablet 500 mg PO BID PRN (Reason: pain) 10 Days Qty: 20 0RF cyclobenzaprine 5 mg tablet 5 mg PO Q8H PRN (Reason: pain (scale score 7-10)) 5 Days Qty: 14 0RF meclizine [Antivert] 25 mg tablet,chewable 25 mg PO TID PRN (Reason: dizziness) Qty: 20 0RF cyclobenzaprine 10 mg tablet 10 mg PO Q8H Qty: 20 0RF tramadol 50 mg tablet 50 mg PO Q6H PRN (Reason: pain) Qty: 20 0RF ipratropium-albuterol 0.5 mg-3 mg(2.5 mg base)/3 mL solution for nebulization 3 ml inhalation Q6H PRN (Reason: shortness of breath) Qty: 90 0RF prednisone 20 mg tablet 60 mg PO DAILY Qty: 12 0RF dexamethasone 4 mg tablet 4 mg PO BID Qty: 6 0RF cyclobenzaprine 10 mg tablet 10 mg PO TID PRN (Reason: muscle spasm) Qty: 20 0RF Print Language: Tajik
[2024-03-18] MEDS: 0.9 % Sodium Chloride 1,000 ML 999 ML IV (05:49)
--- NOTE | 2024-03-18 05:50 | ECG_ITS ---
Test Reason : VOMITTING Blood Pressure : / mmHG Vent. Rate : 086 BPM Atrial Rate : 086 BPM P-R Int : 160 ms QRS Dur : 084 ms QT Int : 378 ms P-R-T Axes : 061 000 048 degrees QTc Int : 452 ms Normal sinus rhythm Low voltage QRS Septal infarct (cited on or before 18-MAR-2024) Abnormal ECG When compared with ECG of 12-JUL-2023 02:02, No significant change was found Referred By: Quintin Velazquez Electronically Signed By:Ryan De La Cruz
[2024-03-18 05:51] LABS: MANUAL DIFF FLAG NO
[2024-03-18 05:52] LABS: Basophils Absolute Auto 0.1 X10*3/uL (0.0-0.2); Basophils Percent Auto 0.4 % (0-2); Eosinophils Absolute Auto 0.2 X10*3/uL (0.0-0.4); Eosinophils Percent Auto 1.4 % (0-4); Hematocrit 44.5 % (37.0-47.0); Hemoglobin 15.3 g/dl (12.0-16.0); Imm Gran Abs Auto 0.05 X10*3/uL (0.00-0.03); Imm Gran Pct Auto 0.4 % (0.0-0.4); Lymphocytes Absolute Auto 3.5 X10*3/uL (1.2-4.9); Lymphocytes Percent Auto 26.8 % (20-40); Mean Corpuscular HGB Conc 34.4 g/dl (31.0-35.0); Mean Corpuscular Hemoglobin 29.7 pg (27.0-33.0); Mean Corpuscular Volume 86.2 fL (80.0-98.0); Mean Platelet Volume 9.1 fL (9.4-12.3); Monocytes Absolute Auto 0.8 X10*3/uL (0.1-1.2); Monocytes Percent Auto 6.3 % (2-11); Neutrophils Absolute Auto 8.6 x10*3/uL (2.0-8.3); Neutrophils Percent Auto 64.7 % (45-73); Platelet Count 330 X10*3/uL (160-400); Red Blood Count 5.16 X10*6/uL (4.20-5.50); Red Cell Distribution Width 12.8 % (11.0-16.0); White Blood Count 13.2 X10*3/uL (4.8-10.8)
[2024-03-18 05:58] LABS: INTERNATIONAL NORM RATIO 0.9 (0.9-1.1); Prothrombin Time 11.5 SEC (11.1-13.3)
[2024-03-18 06:01] LABS: Partial Thromboplastin Time 32.1 SEC (26.0-36.8)
[2024-03-18 06:03] LABS: Lactic Acid 0.9 mmol/L (0.5-2.0)
[2024-03-18] MEDS: Diatrizoate Meglumine, Sodium 30 ML SOLUTION PO ×2 (06:04→08:32)
[2024-03-18 06:12] LABS: Alanine Aminotransferase 21 U/L (0-31); Albumin Level 4.7 g/dL (3.5-5.0); Alkaline Phosphatase 89 U/L (39-117); Anion Gap 17 (12-20); Aspartate Amino Transferase 16 U/L (5-31); Bilirubin Total 0.8 mg/dL (0.0-1.0); Blood Urea Nitrogen 13 mg/dL (9-16); Carbon Dioxide 25 mmol/L (22-29); Chloride 100 mmol/L (96-108); Creatinine Clr Calc Pharmacy 122.8; Estimated Glomerular Filt Rate > 60; Glucose Random 109 mg/dL (60-115); Lipase 29 U/L (8-78); Potassium 3.5 mmol/L (3.3-5.1); Sodium 138 mmol/L (135-145); Total Protein 7.8 g/dL (6.5-8.0)
[2024-03-18 06:14] LABS: HCG Quantitative < 2 mIU/mL
--- NOTE | 2024-03-18 07:25 | PC.NURSE ---
This RN assumed care, pt is alert and oriented, breathing even and unlabored. No outward distress. Pt currently drinking oral contrast for CT scheduled around 8AM this morning. Pt reports general fullness and ache in her abdomen, 11/28. Pt unable to provide urine sample at this time, reports no urge to urinate, last urinated around 4am this morning. Will continue to monitor.
[2024-03-18 08:35] VITALS: BP 131/73; PULSE 88; RESP 18; TEMP 36.5; O2SAT 95
[2024-03-18 10:09] VITALS: BP 137/55; PULSE 92; RESP 18; TEMP 36.6; O2SAT 95
[2024-03-18 10:25] LABS: Appearance Urine Clear; Color Urine Yellow; Glucose Urine UA Negative (Negative); Leukocyte Esterase Urine Negative (Negative); Nitrite Urine Negative (Negative); Specific Gravity - Urine >= 1.030 (1.005-1.025); Urine Blood Negative (Negative); Urine Ketones Trace mg/dL (Negative); Urine Protein Negative (Neg-Trace)
== END 2024-03-18 10:16 | disposition home or self-care (01) ==
PROVIDERS: Emergency Medicine Emergency Medical Services; Emergency Provider Emergency Medicine; PCP Student in an Organized Health Care Education/Training Program
DX: R14.0 Abdominal distension (gaseous) (principal); I48.91 Unspecified atrial fibrillation; R11.0 Nausea; Z79.01 Long term (current) use of anticoagulants; Z79.899 Other long term (current) drug therapy
CPT/HCPCS: 36415; 74177; 80053; 81003; 83605; 83690; 84702; 85025; 85610; 85730; 93005; 96360; 99284; 99285

== ENCOUNTER → 2024-03-18 05:50 | Outpatient (BNV) | payer OTHER, SELFPAY | PROVIDERS: Emergency Provider Emergency Medicine; PCP Student in an Organized Health Care Education/Training Program; Visit Provider Internal Medicine Cardiovascular Disease | DX: R11.10 Vomiting, unspecified (principal) | CPT/HCPCS: 93010 ==

== ENCOUNTER 2024-04-17 11:35 | Outpatient (REF) | payer SELFPAY | END 2024-04-17 11:36 | disposition home or self-care (01) | LOC: HO.HAP 11:35 | PROVIDERS: Visit Provider Student in an Organized Health Care Education/Training Program | DX: Z13.89 Encounter for screening for other disorder (principal) ==

== ENCOUNTER 2024-05-22 00:32 | Emergency (ER) | payer OTHER, SELFPAY ==
--- NOTE | ~2024-05-22 | XR_ITS ---
EXAMINATION: XR CHEST CLINICAL INFORMATION: Pain. Shortness of breath. COMPARISON: Chest radiograph 07/29/2022 TECHNIQUE: 2 views of the chest were obtained. FINDINGS: Normal appearance of the cardiomediastinal structures. No effusions or pneumothoraces. Eventration of the right hemidiaphragm unchanged compared with 07/29/2022. Normal pattern of pulmonary vasculature. No focal pulmonary consolidation. XR/XR chest 2V IMPRESSION: No acute cardiopulmonary abnormalities. Electronically signed by: Sid Liao MD 05/22/2024 01:33 AM EDT
[2024-05-22 00:34] VITALS: BP 144/86; PULSE 95; RESP 20; TEMP 36.8; O2SAT 96; BMI 40.4
--- NOTE | 2024-05-22 02:05 | ECG_ITS ---
Test Reason : CP Blood Pressure : / mmHG Vent. Rate : 085 BPM Atrial Rate : 085 BPM P-R Int : 162 ms QRS Dur : 098 ms QT Int : 392 ms P-R-T Axes : 036 012 054 degrees QTc Int : 466 ms Normal sinus rhythm Low voltage QRS Borderline ECG When compared with ECG of 18-MAR-2024 05:51, Criteria for Septal infarct are no longer Present Referred By: Cordelia Mosquera Electronically Signed By:YAEL MIDDLETON
--- NOTE | 2024-05-22 02:13 | ED_ITS ---
HPI - Back Pain/Injury General Chief Complaint: Back Pain/Injury Stated Complaint: back pain, trouble breathing Time Seen by Provider: 05/22/24 02:04 Source: patient Mode of arrival: ambulatory Limitations: no limitations History of Present Illness ED Provider: Dr. Cordelia Mosquera HPI Narrative: Patient comes to the emergency room complaining of couple of days of pain with inspiration, sitting up straight, bilateral chest pain. Patient states it is worse when she lays down or if she has to move in any way. If she is at rest she does not have any significant pain. Denies shortness of breath. Patient states that she is compliant with her Xarelto for atrial fibrillation. Denies any sick contacts, no fever or chills Related Data Previous Rx's ?Medication ?Instructions ?Recorded albuterol sulfate 90 mcg/actuation 1 inh inhalation QID PRN shortness 12/14/21 aerosol inhaler of breath or wheezing #8.5 grams azithromycin 250 mg tablet See Rx Instructions PO .COMPLEX #6 12/14/21 tabs codeine 10 mg-guaifenesin 100 mg/5 5 ml PO Q6H PRN cold symptoms #120 12/14/21 mL oral liquid (Guaifenesin AC) mL prednisone 20 mg tablet 40 mg (2 x 20 mg) PO DAILY rash 5 12/14/21 days #10 tabs cyclobenzaprine 10 mg tablet 10 mg PO TID PRN muscle spasm #14 04/17/22 tabs ibuprofen 600 mg tablet 600 mg PO Q6H PRN pain #30 tabs 04/17/22 morphine 15 mg immediate release 15 mg PO TID PRN pain #12 tabs 04/17/22 tablet ondansetron 4 mg disintegrating 4 mg PO Q8H PRN nausea and 04/17/22 tablet vomiting #20 tabs diclofenac sodium 1 % topical gel 2 g topical .B.i.d. #100 grams 06/18/22 (Voltaren Arthritis Pain) albuterol sulfate 90 mcg/actuation 2 inh inhalation Q4-6H PRN 07/29/22 breath activated powder inhaler shortness of breath or wheezing #1 ea prednisone 20 mg tablet 40 mg (2 x 20 mg) PO DAILY 5 days 07/29/22 #10 tabs cyclobenzaprine 10 mg tablet 10 mg PO Q8H #20 tabs 01/31/23 tramadol 50 mg tablet 50 mg PO Q6H PRN pain #20 tabs 01/31/23 acetaminophen 500 mg tablet 500 mg PO Q6H PRN fever or pain 02/18/23 (Tylenol Extra Strength) #14 tabs cyclobenzaprine 5 mg tablet 5 mg PO Q8H PRN pain (scale score 02/18/23 7-10) 5 days #14 tabs lidocaine 5 % topical patch 1 patch topical DAILY PRN pain #30 02/18/23 (Lidoderm) ea naproxen 500 mg tablet 500 mg PO BID PRN pain 10 days #20 02/18/23 tabs ipratropium 0.5 mg-albuterol 3 mg 3 ml inhalation Q6H PRN shortness 06/17/23 (2.5 mg base)/3 mL nebulization of breath #90 mL soln prednisone 20 mg tablet 60 mg (3 x 20 mg) PO DAILY #12 tabs 06/17/23 cyclobenzaprine 10 mg tablet 10 mg PO TID PRN muscle spasm #20 06/26/23 tabs dexamethasone 4 mg tablet 4 mg PO BID #6 tabs 06/26/23 meclizine 25 mg chewable tablet 25 mg PO TID PRN dizziness #20 tabs 07/12/23 (Antivert) cyclobenzaprine 10 mg tablet 10 mg PO TID PRN muscle spasm #10 05/22/24 tabs Allergies Allergy/AdvReac Type Severity Reaction Status Date / Time peanut [PEANUT] Allergy Severe ANAPHYLAXIS Verified 05/22/24 00:37 banana Allergy Itching Verified 05/22/24 00:37 Review of Systems 2 Review of Systems: Constitutional : No Weight loss, No Fever, No Chills, No Night Sweats, No Fatigue, No Malaise ENT/Mouth : No Hearing loss, No Ear Pain, No Nasal Congestion, No Sinus Pain, No Hoarseness, No sore throat, No Rhinorrhea, No Swallowing Difficulty Eyes: No Eye Pain, No Swelling, No Redness, No Foreign Body, No Discharge, No Vision Changes Cardiovascular : Complaining of chest wall achiness, no chest pain, No SOB, No Dyspnea on Exertion, No Orthopnea, No Edema, No Palpitations Respiratory : No Cough, No Sputum, No Wheezing, No Smoke Exposure, No Dyspnea Gastrointestinal : No Nausea, No Vomiting, No Diarrhea, No Constipation, No abdominal Pain, No Hematochezia, No Melena Genitourinary : no irregular bleeding, No Dysuria, No Urinary Frequency, No Hematuria, No Urinary Incontinence, No Urgency, No Flank Pain, No Urinary Flow Changes, No Hesitancy Musculoskeletal : Complaining of chest wall pain, back pain worse with movements Skin : No Skin Lesions, No rash Neuro : No Weakness, No Numbness, No Paresthesias, No Loss of Consciousness, No Dizziness, No Headache Psych : No Anxiety/Panic, No Depression, No SI/HI/AH/VH, No Social Issues, Heme/Lymph: No Bruising, No Bleeding,No Lymphadenopathy Endocrine : No Polyuria, No Polydipsia, No Temperature Intolerance [facility] Past Medical History Medical History (Updated 05/22/24 @ 02:57 by Cordelia Mosquera MD) Chronic anticoagulation Anxiety Bipolar 1 disorder Afib Asthma Social History Social History Unable to assess alcohol history related to: Unknown Alcohol intake: never Patient Tobacco Use Status: Never used Tobacco Smoked in Last 30 Days: No Use of substances other than those prescribed or required for medical reasons: Yes Substance Use Type: Marijuana Substance Use Frequency: Occasionally Advance Directives: No Advance Directives Information Provided: No Physical Exam 2 Vital Signs: Vital Signs: Last Vital Signs Temp 98.2 F 05/22/24 00:34 Pulse 95 05/22/24 00:34 Resp 20 05/22/24 00:34 BP 144/86 H 05/22/24 00:34 Pulse Ox 96 05/22/24 00:34 O2 Del Method Room Air 05/22/24 00:34 BMI result Body Mass Index 40.4 Const: Other: Appearance: Alert. Oriented X3. No acute distress. Eyes: Pupils equal, round and reactive to light. ENT: Pharynx normal. Neck: Normal inspection. Neck supple. No lymph nodes noted. No crepitus CVS: Normal heart rate and rhythm. Pulses normal. Normal S1 and S2. Reproducible pain to palpation Respiratory: No respiratory distress. Breath sounds normal. No Wheezing. No rales Abdomen: Soft and nontender. No rigidity. No distention. Skin: Skin warm and dry. Normal skin color. Normal skin turgor. Extremities: No lower extremity edema. No Lacerations. No Rash Neuro: Oriented X 3. No motor deficit. No sensory deficit. Moving all extremities. No slurred speech. CN 2 through 12 grossly intact Psych: calm, cooperative, normal affect Course Course Course Narrative: Patient has history of AFib , on Xarelto. -of patient's labs pending -EKG and chest x-ray pending Medications Administered Discontinued Medications Generic Name Dose Route Start Last Admin Trade Name Jordyq PRN Reason Stop Dose Admin Cyclobenzaprine HCl 10 mg 05/22/24 02:05 05/22/24 02:30 Cyclobenzaprine Hcl 10 Mg Tablet PO 05/22/24 02:06 10 mg ONCE ONE Administration Medical Decision Making Medical Decision Making [facility] Narrative: My interpretation of chest x-ray: No obvious abnormality. My interpretation of labs, normal hematology and chemistry, negative troponin -based on physical exam and reproducible pain to palpation, patient likely having musculoskeletal pain. -NSAIDs contraindicated, patient is taking Xarelto. Differential Diagnosis Differential Diagnoses: The differential diagnosis associated with the presentation includes (Musculoskeletal pain, anxiety, ACS) Admission/Observation Consideration of admission/observation: Escalation of care including admission/observation considered Lab Data [facility] Lab Attestation statement: I reviewed the patient's lab results. 05/22/24 02:27 05/22/24 02:27 Labs: Lab Results 05/22/24 Range/Units 02:27 WBC 11.5 H (4.8-10.8) X10*3/uL RBC 4.40 (4.20-5.50) X10*6/uL Hgb 13.1 (12.0-16.0) g/dl Hct 38.3 (37.0-47.0) % MCV 87.0 (80.0-98.0) fL MCH 29.8 (27.0-33.0) pg MCHC 34.2 (31.0-35.0) g/dl RDW 12.9 (11.0-16.0) % Plt Count 262 (160-400) X10*3/uL MPV 9.1 L (9.4-12.3) fL Immature Gran % (Auto) 0.3 (0.0-0.4) % Neut % (Auto) 65.0 (45-73) % Lymph % (Auto) 25.5 (20-40) % [place] % (Auto) 5.8 (2-11) % Eos % (Auto) 3.0 (0-4) % Baso % (Auto) 0.4 (0-2) % Lymph # (Auto) 2.9 (1.2-4.9) X10*3/uL [place] # (Auto) 0.7 (0.1-1.2) X10*3/uL Eos # (Auto) 0.3 (0.0-0.4) X10*3/uL Baso # (Auto) 0.1 (0.0-0.2) X10*3/uL Abs Immat Gran (auto) 0.04 H (0.00-0.03) X10*3/uL Absolute Neuts (auto) 7.5 (2.0-8.3) x10*3/uL Absolute Nucleated RBC 0.000 (0.0-0.012) X10*3/uL Nucleated RBC % (auto) 0.0 (0.0-0.2) /100WBC Sodium 140 (135-145) mmol/L Potassium 3.4 (3.3-5.1) mmol/L Chloride 103 (96-108) mmol/L Carbon Dioxide 26 (22-29) mmol/L Anion Gap 14 (12-20) BUN 10 (9-16) mg/dL Creatinine 0.64 (0.5-1.4) mg/dL Estim Creat Clear Calc 151.6 Estimated GFR > 60 Random Glucose 97 (60-115) mg/dL Calcium 9.2 D (8.4-10.2) mg/dL Troponin I High Sens 3.4 (<3.5-17.0) ng/L Independent Interpretation I performed an independent interpretation of an: Plain X-Ray Radiology Impression Discussion of test interpretation with radiology: I have reviewed the radiologist's reading. Radiologist Impression: Normal appearance of the cardiomediastinal structures. No effusions or pneumothoraces. Eventration of the right hemidiaphragm unchanged compared with 07/29/2022. Normal pattern of pulmonary vasculature. No focal pulmonary consolidation. XR/XR chest 2V IMPRESSION: No acute cardiopulmonary abnormalities Critical Care Time Critical Care Time Critical Care Time: Yes Total Critical Care Time: 45 Attestation: I have personally provided critical care time. Time includes review of lab data, radiology results, discussion with consultants, and monitoring for potential decompensation. Intervention performed as documented. Discharge Plan Discharge Clinical Impression: Musculoskeletal pain Patient Disposition: Home, Self-Care Instructions: Musculoskeletal Pain (ED) Additional Instructions: Please follow-up with your primary care physician tomorrow. If you have any worsening or new symptoms, please return to the emergency room or call 911 Prescriptions: New cyclobenzaprine 10 mg tablet 10 mg PO TID PRN (Reason: muscle spasm) Qty: 10 0RF No Action albuterol sulfate 90 mcg/actuation HFA aerosol inhaler 1 inh inhalation QID PRN (Reason: shortness of breath or wheezing) Qty: 8.5 0RF azithromycin 250 mg tablet See Rx Instructions .ROUTE .COMPLEX Qty: 6 0RF Rx Instructions: take 500 mg today (day 1), then 250 mg for 4 days (days 2-5) codeine-guaifenesin [Guaifenesin AC] 10-100 mg/5 mL liquid 5 ml PO Q6H PRN (Reason: cold symptoms) Qty: 120 0RF prednisone 20 mg tablet 40 mg PO DAILY 5 Days Qty: 10 0RF cyclobenzaprine 10 mg tablet 10 mg PO TID PRN (Reason: muscle spasm) Qty: 14 0RF ibuprofen 600 mg tablet 600 mg PO Q6H PRN (Reason: pain) Qty: 30 0RF morphine 15 mg tablet 15 mg PO TID PRN (Reason: pain) Qty: 12 0RF Rx Instructions: partial fill okay; Partial Fill upon patient request. ondansetron 4 mg tablet,disintegrating 4 mg PO Q8H PRN (Reason: nausea and vomiting) Qty: 20 0RF diclofenac sodium [Voltaren Arthritis Pain] 1 % gel 2 g topical .B.i.d. Qty: 100 0RF Rx Instructions: Apply to affected area twice daily albuterol sulfate 90 mcg/actuation aerosol powdr breath activated 2 inh inhalation Q4-6H PRN (Reason: shortness of breath or wheezing) Qty: 1 0RF prednisone 20 mg tablet 40 mg PO DAILY 5 Days Qty: 10 0RF acetaminophen [Tylenol Extra Strength] 500 mg tablet 500 mg PO Q6H PRN (Reason: fever or pain) Qty: 14 0RF lidocaine [Lidoderm] 5 % adhesive patch,medicated 1 patch topical DAILY MDD remove after 12 hours PRN (Reason: pain) Qty: 30 0RF Rx Instructions: leave on most painful area for up to 12 hrs naproxen 500 mg tablet 500 mg PO BID PRN (Reason: pain) 10 Days Qty: 20 0RF cyclobenzaprine 5 mg tablet 5 mg PO Q8H PRN (Reason: pain (scale score 7-10)) 5 Days Qty: 14 0RF meclizine [Antivert] 25 mg tablet,chewable 25 mg PO TID PRN (Reason: dizziness) Qty: 20 0RF cyclobenzaprine 10 mg tablet 10 mg PO Q8H Qty: 20 0RF tramadol 50 mg tablet 50 mg PO Q6H PRN (Reason: pain) Qty: 20 0RF ipratropium-albuterol 0.5 mg-3 mg(2.5 mg base)/3 mL solution for nebulization 3 ml inhalation Q6H PRN (Reason: shortness of breath) Qty: 90 0RF prednisone 20 mg tablet 60 mg PO DAILY Qty: 12 0RF dexamethasone 4 mg tablet 4 mg PO BID Qty: 6 0RF cyclobenzaprine 10 mg tablet 10 mg PO TID PRN (Reason: muscle spasm) Qty: 20 0RF Print Language: Paraguayan
[2024-05-22] MEDS: Cyclobenzaprine HCl 10 MG TABLET PO (02:30)
[2024-05-22 02:33] LABS: MANUAL DIFF FLAG NO
[2024-05-22 02:36] LABS: Basophils Absolute Auto 0.1 X10*3/uL (0.0-0.2); Basophils Percent Auto 0.4 % (0-2); Eosinophils Absolute Auto 0.3 X10*3/uL (0.0-0.4); Hematocrit 38.3 % (37.0-47.0); Hemoglobin 13.1 g/dl (12.0-16.0); Imm Gran Abs Auto 0.04 X10*3/uL (0.00-0.03); Imm Gran Pct Auto 0.3 % (0.0-0.4); Lymphocytes Absolute Auto 2.9 X10*3/uL (1.2-4.9); Lymphocytes Percent Auto 25.5 % (20-40); Mean Corpuscular HGB Conc 34.2 g/dl (31.0-35.0); Mean Corpuscular Hemoglobin 29.8 pg (27.0-33.0); Mean Platelet Volume 9.1 fL (9.4-12.3); Monocytes Absolute Auto 0.7 X10*3/uL (0.1-1.2); Monocytes Percent Auto 5.8 % (2-11); Neutrophils Absolute Auto 7.5 x10*3/uL (2.0-8.3); Platelet Count 262 X10*3/uL (160-400); Red Cell Distribution Width 12.9 % (11.0-16.0); White Blood Count 11.5 X10*3/uL (4.8-10.8)
[2024-05-22 02:48] LABS: Anion Gap 14 (12-20); Blood Urea Nitrogen 10 mg/dL (9-16); Calcium 9.2 mg/dL (8.4-10.2); Carbon Dioxide 26 mmol/L (22-29); Chloride 103 mmol/L (96-108); Creatinine Clr Calc Pharmacy 151.6; Estimated Glomerular Filt Rate > 60; Glucose Random 97 mg/dL (60-115); Potassium 3.4 mmol/L (3.3-5.1); Sodium 140 mmol/L (135-145)
[2024-05-22 02:54] LABS: Troponin-I High Sensitivity 3.4 ng/L (<3.5-17.0)
[2024-05-22 03:10] VITALS: BP 149/91; PULSE 94; RESP 16; TEMP 36.8; O2SAT 94
== END 2024-05-22 03:16 | disposition home or self-care (01) ==
PROVIDERS: Emergency Provider Emergency Medicine
DX: M79.18 Myalgia, other site (principal); R06.02 Shortness of breath; I48.91 Unspecified atrial fibrillation; Z79.01 Long term (current) use of anticoagulants
CPT/HCPCS: 36415; 71046; 80048; 84484; 85025; 93005; 99285

== ENCOUNTER 2024-12-17 12:10 | Emergency (ER) | payer OTHER, SELFPAY ==
--- NOTE | ~2024-12-17 | XR_ITS ---
EXAMINATION: XR KNEE, RIGHT CLINICAL INFORMATION: pain COMPARISON: None available. TECHNIQUE: Three views of the right knee. FINDINGS: Marginal osteophyte formation along the lateral femoral condyle and lateral tibial plateau. Osteophyte formation in the posterior superior aspect of the patella. No acute cortical disruption or malalignment. Joint space narrowing, patellofemoral. Small volume suprapatellar bursa joint effusion. No lytic or blastic lesions. Large exostosis in the lateral aspect of the patella. XR/XR knee RT 4V IMPRESSION: Mild to moderate lateral compartment osteoarthrosis. Small volume suprapatellar bursa joint effusion. Electronically signed by: Axel James MD 12/17/2024 01:06 PM EDT
--- NOTE | ~2024-12-17 | US_ITS ---
EXAMINATION: US TRIPLEX LOWER EXTREMITY, RIGHT CLINICAL INFORMATION: Right leg pain behind knee. COMPARISON: None available. TECHNIQUE: Color-flow triplex imaging with spectral analysis and compression Doppler were performed on the right lower extremity. FINDINGS: Respiratory variation, normal compression and augmented flow are noted throughout the right lower extremity. The visualized common femoral vein, superficial femoral vein, profunda femoral vein, popliteal vein and midcalf peroneal and posterior tibial venous segments show no evidence of deep venous thrombosis. There is no Lloyd's cyst. US/US venous duplex LE RT IMPRESSION: No evidence of deep venous thrombosis involving the right lower extremity. Electronically signed by: Segundo Mcclellan MD 12/17/2024 01:48 PM EDT
[2024-12-17 12:12] VITALS: BP 172/96; PULSE 112; RESP 16; TEMP 36.2; O2SAT 96; BMI 39.8
--- NOTE | 2024-12-17 12:12 | ED.GENADULT ---
HPI - General Adult General Chief complaint: Extremity Injury, Lower Stated complaint: R knee pain/swelling Time Seen by Provider: 12/17/24 14:22 Source: patient, RN notes reviewed and old records reviewed Mode of arrival: ambulatory Limitations: no limitations History of Present Illness ED Provider: Traci HPI narrative: 44-year-old female presents for evaluation of right knee pain and swelling. The patient reports a history of arthritis and reports over the last few days she was increase pain and swelling to the right knee. She reports that she was walking around frequently. She was seen orthopedics in the past. The patient believes she needs a right knee replacement but orthopedics reportedly told her she was too young She denies any recent injury, fevers, chills Related Data Previous Rx's ?Medication ?Instructions ?Recorded albuterol sulfate 90 mcg/actuation 1 inh inhalation QID PRN shortness 12/14/21 aerosol inhaler of breath or wheezing #8.5 grams azithromycin 250 mg tablet See Rx Instructions PO .COMPLEX #6 12/14/21 tabs codeine 10 mg-guaifenesin 100 mg/5 5 ml PO Q6H PRN cold symptoms #120 12/14/21 mL oral liquid (Guaifenesin AC) mL prednisone 20 mg tablet 40 mg (2 x 20 mg) PO DAILY rash 5 12/14/21 days #10 tabs cyclobenzaprine 10 mg tablet 10 mg PO TID PRN muscle spasm #14 04/17/22 tabs ibuprofen 600 mg tablet 600 mg PO Q6H PRN pain #30 tabs 04/17/22 morphine 15 mg immediate release 15 mg PO TID PRN pain #12 tabs 04/17/22 tablet ondansetron 4 mg disintegrating 4 mg PO Q8H PRN nausea and 04/17/22 tablet vomiting #20 tabs diclofenac sodium 1 % topical gel 2 g topical .B.i.d. #100 grams 06/18/22 (Voltaren Arthritis Pain) albuterol sulfate 90 mcg/actuation 2 inh inhalation Q4-6H PRN 07/29/22 breath activated powder inhaler shortness of breath or wheezing #1 ea prednisone 20 mg tablet 40 mg (2 x 20 mg) PO DAILY 5 days 07/29/22 #10 tabs cyclobenzaprine 10 mg tablet 10 mg PO Q8H #20 tabs 01/31/23 tramadol 50 mg tablet 50 mg PO Q6H PRN pain #20 tabs 01/31/23 acetaminophen 500 mg tablet 500 mg PO Q6H PRN fever or pain 02/18/23 (Tylenol Extra Strength) #14 tabs cyclobenzaprine 5 mg tablet 5 mg PO Q8H PRN pain (scale score 02/18/23 7-10) 5 days #14 tabs lidocaine 5 % topical patch 1 patch topical DAILY PRN pain #30 02/18/23 (Lidoderm) ea naproxen 500 mg tablet 500 mg PO BID PRN pain 10 days #20 02/18/23 tabs ipratropium 0.5 mg-albuterol 3 mg 3 ml inhalation Q6H PRN shortness 06/17/23 (2.5 mg base)/3 mL nebulization of breath #90 mL soln prednisone 20 mg tablet 60 mg (3 x 20 mg) PO DAILY #12 tabs 06/17/23 cyclobenzaprine 10 mg tablet 10 mg PO TID PRN muscle spasm #20 06/26/23 tabs dexamethasone 4 mg tablet 4 mg PO BID #6 tabs 06/26/23 meclizine 25 mg chewable tablet 25 mg PO TID PRN dizziness #20 tabs 07/12/23 (Antivert) cyclobenzaprine 10 mg tablet 10 mg PO TID PRN muscle spasm #10 05/22/24 tabs doxycycline hyclate 100 mg capsule 100 mg PO BID #14 caps 07/05/24 tramadol 50 mg tablet 50 mg PO Q6H PRN severe pain 12/17/24 (scale score 7-10) #12 tabs Allergies Allergy/AdvReac Type Severity Reaction Status Date / Time peanut [PEANUT] Allergy Severe ANAPHYLAXIS Verified 12/17/24 12:13 banana Allergy Itching Verified 12/17/24 12:13 Review of Systems Constitutional: Constitutional: Denies body ache(s), Denies chills and Denies fever(s) Eyes: Eyes: Denies blurry vision Cardiovascular: Cardiovascular: Denies chest pain Musculoskeletal: Musculoskeletal: Reports arthralgias, Reports joint swelling and Reports limited range of motion Integumentary/Breasts: Skin/Breast: Denies erythema PMFSH Past Medical History Medical History (Updated 12/17/24 @ 14:22 by Alfa Aviles) Chronic anticoagulation Anxiety Bipolar 1 disorder Afib Asthma Social History Social History (System 10/16/24 @ 15:22 by Karyna Cuenca) Unable to assess alcohol history related to: Unknown Alcohol intake: never Patient Tobacco Use Status: Never used Tobacco Substance Use Type: Marijuana Advance Directives: No Advance Directives Information Provided: Yes Do you have a plan to hurt others: No Plan Physical Exam ED Vital Signs: Vital Signs - 24 hr 12/17/24 12:12 Temperature 97.2 F Pulse Rate 112 H Respiratory Rate 16 Blood Pressure 172/96 H Pulse Oximetry 96 Oxygen Delivery Method Room Air BMI result Body Mass Index 39.8 Const General: healthy appearing, comfortable, no acute distress, alert and awake Nutritional Appearance: well nourished Orientation/consciousness: patient oriented x3 HENMT Head: Yes normocephalic and Yes atraumatic Eyes Eyelids: Yes eyelids normal Conjunctivae: conjunctivae normal Sclerae: sclerae normal Corneas: corneas normal Pupils: Equal, round and reactive pupils present EOM: EOMs intact bilaterally Neck Neck: Yes full ROM Resp Effort & Inspection: normal respiratory effort, able to speak in complete sentences and not labored Skin General skin exam: elasticity normal Neuro General: patient oriented x3 Cranial nerves: Yes Equal, round and reactive pupils present and Yes Bilaterally intact EOM present Cognition (Neuro): normal cognition Extrem Other: It was a mild right suprapatellar bursitis. There is also a mild joint effusion. The patient is able to flex and extend the knee. No overlying erythema or increased warmth. No calf tenderness. Course Course Course Narrative: RME, this is a rapid medical exam performed by Terence Aviles please refer to primary provider for complete H&P- 44 year old female presents for evaluation of atraumatic right knee pain for the last 3 days. Reports a history of bad knees. Plan for x-ray and ultrasound due to the posterior knee pain Medical Decision Making Medical Decision Making MDM Narrative: 44-year-old female presents for evaluation of increased right knee pain and swelling. Denies any recent trauma. There was no evidence of infection. No skin changes or fever. The patient is able to flex and extend the knee. She is on Xarelto due to paroxysmal AFib and can not take NSAIDs. X-ray shows moderate arthritis. DVT scan negative. Plan to discharge her with tramadol for pain control and she will follow up with her outpatient providers Differential Diagnosis Differential Diagnoses: The differential diagnosis associated with the presentation includes Right knee pain Right knee bursitis Contusion Knee sprain Joint effusion Radiology Impression Discussion of test interpretation with radiology: I have reviewed the radiologist's reading. Radiologist Impression: FINDINGS: Marginal osteophyte formation along the lateral femoral condyle and lateral tibial plateau. Osteophyte formation in the posterior superior aspect of the patella. No acute cortical disruption or malalignment. Joint space narrowing, patellofemoral. Small volume suprapatellar bursa joint effusion. No lytic or blastic lesions. Large exostosis in the lateral aspect of the patella. XR/XR knee RT 4V IMPRESSION: Mild to moderate lateral compartment osteoarthrosis. Small volume suprapatellar bursa joint effusion. Electronically signed by: Axel James MD 12/17/2024 01:06 PM EDT RP FINDINGS: Respiratory variation, normal compression and augmented flow are noted throughout the right lower extremity. The visualized common femoral vein, superficial femoral vein, profunda femoral vein, popliteal vein and midcalf peroneal and posterior tibial venous segments show no evidence of deep venous thrombosis. There is no Lloyd's cyst. US/US venous duplex LE RT IMPRESSION: No evidence of deep venous thrombosis involving the right lower extremity. Electronically signed by: Segundo Mcclellan MD 12/17/2024 01:48 PM EDT Discharge Plan Discharge Clinical Impression: Acute pain of right knee Patient Disposition: Home, Self-Care Instructions: Knee Pain (ED) Additional Instructions: Your x-ray shows [id number] arthritis. Your ultrasound was negative for blood clots. You should not be taking NSAIDs such as ibuprofen or naproxen while you are on Xarelto. You may use Tylenol and I prescribed tramadol Tramadol may make you drowsy, do not drink alcohol or drive after taking it. Follow up with Orthopedics provided Prescriptions: New tramadol 50 mg tablet 50 mg PO Q6H PRN (Reason: severe pain (scale score 7-10)) Qty: 12 0RF No Action albuterol sulfate 90 mcg/actuation HFA aerosol inhaler 1 inh inhalation QID PRN (Reason: shortness of breath or wheezing) Qty: 8.5 0RF azithromycin 250 mg tablet See Rx Instructions .ROUTE .COMPLEX Qty: 6 0RF Rx Instructions: take 500 mg today (day 1), then 250 mg for 4 days (days 2-5) codeine-guaifenesin [Guaifenesin AC] 10-100 mg/5 mL liquid 5 ml PO Q6H PRN (Reason: cold symptoms) Qty: 120 0RF prednisone 20 mg tablet 40 mg PO DAILY 5 Days Qty: 10 0RF cyclobenzaprine 10 mg tablet 10 mg PO TID PRN (Reason: muscle spasm) Qty: 14 0RF ibuprofen 600 mg tablet 600 mg PO Q6H PRN (Reason: pain) Qty: 30 0RF morphine 15 mg tablet 15 mg PO TID PRN (Reason: pain) Qty: 12 0RF Rx Instructions: partial fill okay; Partial Fill upon patient request. ondansetron 4 mg tablet,disintegrating 4 mg PO Q8H PRN (Reason: nausea and vomiting) Qty: 20 0RF diclofenac sodium [Voltaren Arthritis Pain] 1 % gel 2 g topical .B.i.d. Qty: 100 0RF Rx Instructions: Apply to affected area twice daily albuterol sulfate 90 mcg/actuation aerosol powdr breath activated 2 inh inhalation Q4-6H PRN (Reason: shortness of breath or wheezing) Qty: 1 0RF prednisone 20 mg tablet 40 mg PO DAILY 5 Days Qty: 10 0RF acetaminophen [Tylenol Extra Strength] 500 mg tablet 500 mg PO Q6H PRN (Reason: fever or pain) Qty: 14 0RF lidocaine [Lidoderm] 5 % adhesive patch,medicated 1 patch topical DAILY MDD remove after 12 hours PRN (Reason: pain) Qty: 30 0RF Rx Instructions: leave on most painful area for up to 12 hrs naproxen 500 mg tablet 500 mg PO BID PRN (Reason: pain) 10 Days Qty: 20 0RF cyclobenzaprine 5 mg tablet 5 mg PO Q8H PRN (Reason: pain (scale score 7-10)) 5 Days Qty: 14 0RF meclizine [Antivert] 25 mg tablet,chewable 25 mg PO TID PRN (Reason: dizziness) Qty: 20 0RF doxycycline hyclate 100 mg capsule 100 mg PO BID Qty: 14 0RF cyclobenzaprine 10 mg tablet 10 mg PO Q8H Qty: 20 0RF tramadol 50 mg tablet 50 mg PO Q6H PRN (Reason: pain) Qty: 20 0RF ipratropium-albuterol 0.5 mg-3 mg(2.5 mg base)/3 mL solution for nebulization 3 ml inhalation Q6H PRN (Reason: shortness of breath) Qty: 90 0RF prednisone 20 mg tablet 60 mg PO DAILY Qty: 12 0RF dexamethasone 4 mg tablet 4 mg PO BID Qty: 6 0RF cyclobenzaprine 10 mg tablet 10 mg PO TID PRN (Reason: muscle spasm) Qty: 20 0RF cyclobenzaprine 10 mg tablet 10 mg PO TID PRN (Reason: muscle spasm) Qty: 10 0RF Referrals: [facility] [place] Orthopedic Surgeons [Provider Group] (right knee pain) Print Language: Swedish
--- OUTSIDE RECORDS SUMMARY | 2024-12-17 16:34 | XMS_ITS | Encounter Summary ---
Author Organization [facility] Address [address] [place] [address] Care Team Providers Care Muck Hauler Name Role Phone Tony Oropeza MD Primary Care Provider [phone] Encounter Details Date Type Department Care Team (Late st Contact Info) Description 05/21/2024 9:45 AM EDT Hospital Encounter TH HISTORIC ENCOUNTERS [facility] CONVERSION ONLY Sherly Simons PA [address] [place] [address] Social History Tobacco Use Types Packs/Day Years [...] on filedocumented in this encounter Care Teams Muck Hauler Relationship Specialty Start Date End Date Tony Oropeza MD [address] [address] PCP - General 07/14/23 documented as of this encounter
--- OUTSIDE RECORDS SUMMARY | 2024-12-17 16:34 | XMS_ITS | Clinical Summary ---
Author Organization [facility] Address [address] [place] [address] Care Team Providers Care Bag Machine Tender Name Role Phone Tony Oropeza MD Primary Care Provider [phone] Medications Ventolin HFA 90 mcg/actuation inhaler INHALE 2 PUFFS INTO THE LUNGS EVERY 6 HOURS NEEDED FOR COUGH, WHEEZING OR SHORTNESS OF BREATH. NOT TO EXCEED 12 INHALATIONS PER 24 HOURS. 18 g 5 Active Surgical History Surgery Date Site/Laterality Comments CARDIAC ELECTROPHYSIOLOGY MAPPING AND ABLATION PROCEDURE:CARDIAC ELECTROPHYSIOLOGY MAPPING AND ABLATION SECTION PROCEDURE: SECTION Medical History Medical History Date Comments Atrial fibrillation (CMS/HCC V24, CMS/HCC V28) DX:Atrial fibrillation (HCC) SVT (supraventricular tachyc ardia) (CMS/HCC V24) DX:SVT (supraventricular tac hycardia) ([facility]) Social History Tobacco Use Types Packs/Day Years Used Date Smoking Tobacco: Never Smokeless Tobacco: Never Alcohol Use Standard Drinks/Week Comments Not Currently 0 (1 standard drink = 0.6 oz pur e alcohol) Comments Unknown Sex and Gender Information Value Date Recorded Sex Assigned at Not on file Legal Sex Female 5:14 PM EST Gender Identity Not on file Sexual Orientation Not on file Obstetrics History Last Filed Vital Signs Vital Sign Reading [...] Mass Index 40.75 05/21/2024 9:52 AM EDT Plan of Treatment Health Maintenance Due Date Last Done Comments Hepatitis A Vaccines (1 of 2 - Risk 2-dose series) 1998 Cervical Cancer Screening: HPV 2000 Pneumococcal Vaccine: Pediatrics (0 to 5 Years) and At-Risk Patients (6 to 64 Years) (2 of 2 - PCV) 03/23/2008 03/23/2007 Cholesterol Screening (Lipid Panel) 07/30/2022 Colorectal Cancer Screening: Colonoscopy 07/30/2022 Depression Screening 07/30/2022 HIV Screening 07/30/2022 Hepatitis C Screening 07/30/2022 Social Influencers of Health Screening 07/30/2022 COVID-19 Vaccine ( season) 2024 10/02/2020, 09/11/2020 DTaP,Tdap,and Td Vaccines (2 - Td or Tdap) 07/21/2024 07/21/2014 Influenza Vaccine (Season Ended) 2025 07/21/2020, 05/14/2018, 07/19/2017, Additional history exists Breast Cancer Screening 11/13/2025 11/14/19, 10/24/2023, 11/07/2022, Additional history exists Hepatitis B Vaccines Completed 10/09/2009, 04/03/2009, 03/05/2009 MMR Vaccines Aged Out 09/05/2018 No longer eligi ble based on patient's age to complete this topic HIB Vaccines Aged Out No longer eligi ble based on patient's age to complete this topic HPV Vaccines Aged Out No longer eligi ble based on patient's age to complete this topic IPV Vaccines Aged Out No longer eligi ble based on patient's age to complete this topic Meningococcal ACWY Vaccine Aged Out N o longer eligible based on patient's age to complete this topic Meningococcal B Vaccine Aged Out No l onger eligible based on patient's age to complete this topic RSV Immunization Patients Under 20 months Aged Out No longer eligible based on patient's age to complete this topic Varicella Vaccines Aged Out No longer eligible based on patient's age to complete this topic Procedures Procedure Name Priority Date/Time Associated Diagnosis Comments DIAGNOSTIC MAMMOGRAPHY WITH CAD UNILATERAL Routine 11/14/2023 9:52 AM EDT Other abnormal and inconclusive findings on diagnostic imaging of breast from Last 3 Months or Most Recently Relevant to Health Maintenance Results * DIAGNOSTIC MAMMOGRAPHY WITH CAD UNILATERAL (11/14/2023 9:52 AM EDT) Anatomical Region Laterality Modality Mammography 10/25/2023 1:21 PM EST Narrative 11/14/2023 10:02 AM EDT This is a summary report. The complete report is available in the patient's medical record. If you cannot access the medical record, please contact the sending organization for a detailed fax or copy. Exam: Unilateral right digital diagnostic mammogram. History: Call back Findings: Patient is recalled from a screening mammogram performed 10/24/2023 for additional imaging on the right. 90 ML and spot compression MLO views were performed with tomosynthesis. The asymmetry in the lower breast does not persist. ??No mass or architectural distortion is apparent. ??Parenchymal pattern is similar to prior exams. Impression: No suspicious finding on callback imaging. ??Routine annual screening mammography recommended. BI-RADS 1-negative Procedure Note Lina Enciso MD - 04/08/2024 This is a summary report. The complete report is available in thepatient's medical record. If you cannot access the medical record, pleasecontact the sending organization for a detailed fax or copy. Exam: Unilateral right digital diagnostic mammogram. History: Call back Findings: Patient is recalled from a screening mammogram performed 10/24/2023 foradditional imaging on the right. 90 ML and spot compression MLO views were performed with tomosynthesis.The asymmetry in the lower breast does not persist. No mass orarchitectural distortion is apparent. Parenchymal pattern is similar toprior exams. Impression: No suspicious finding on callback imaging. Routine annual screeningmammography recommended. BI-RADS 1-negative Tony Oropeza MD IMG BI PROCEDURES Final Result from Last 3 Months or Most Recently Relevant to Health Maintenance Care Teams Bag Machine Tender Relationship Specialty Start Date End Date Tony Oropeza MD [address] [place] [address] PCP - General 07/14/23
--- OUTSIDE RECORDS SUMMARY | 2024-12-17 16:34 | XMS_ITS | Clinical Summary ---
Author Organization [facility] Address [address] [place] [address] Care Team Providers Care Envelope Folding Machine Adjuster Name Role Phone Tony Oropeza MD Primary Care Provider [phone] Allergies Active Allergy Reactions Criticality Noted Date Comments Banana 05/06/2024 Itchy throat Peanuts Anaphylaxis High 05/06/2024 Tree Nuts Anaphylaxis High 05/06/2024 Medications Medication Sig Dispensed Refills Start Date End Date Status Venlafaxine HCl ER 225 MG TB24 Take by mouth. 0 Active lamoTRIgine (LaMICtal) 100 MG tablet Take 1 tablet (100 mg total) by mouth daily. 0 Active rivaroxaban (Xarelto) 20 MG TABS tablet Take by mouth. 0 Act sharon montelukast (SINGULAIR) 10 MG tablet Take 1 tablet (10 mg total) by mouth every night at bedtime. 0 Active flecainide (TAMBOCOR) 100 MG tablet Take 1 tablet (100 mg total) by mouth 2 (two) times a day. 0 Active albuterol 108 (90 Base) MCG/ACT inhaler Inhale 2 puffs into the lungs every 6 (six) hours as needed for wheezing. 0 Active EPINEPHrine (EPIPEN 2-KAITY IJ) Inject as directed. 0 Active Social History Tobacco Use Types Packs/Day Years Used Date Smoking Tobacco: Never Smokeless Tobacco: Never Alcohol Use Standard Drinks/Week Comments Not Currently 0 (1 standard drink = 0.6 oz pur e alcohol) Sex and Gender Information Value Date Recorded Sex Assigned at Not on file Gender Identity Not on file Sexual Orientation Not on file Job Start Date Occupation Industry Not on file Not on file Not on file Last Filed Vital Signs Vital Sign Reading Time Taken Comments Blood Pressure 140/79 05/21/2024 9:53 AM EDT Pulse 91 05/21/2024 9:53 AM EDT Temperature 36.7 ??C (98 ??F) 05/21/2024 9:53 AM EDT Respiratory Rate - - Oxygen Saturation 96% 05/21/2024 9:53 AM EDT Inhaled Oxygen Concentration - - Weight 121.6 kg (268 lb) 05/21/2024 9:52 AM EDT Height 172.7 cm (5' 8 ) 05/21/2024 9:52 AM EDT Body Mass Index 40.75 05/21/2024 9:52 AM EDT Plan of Treatment Health Maintenance Due Date Last Done Comments Hepatitis C Screening 1979 Depression Screening 1991 Preventative Health Evaluation 1997 Cervical Cancer Screening (Pap Smear) 2000 COVID-19 Vaccine (2023-2 5 season) 2024 10/02/2020, 09/11/2020 Influenza Vaccine (#1) 2024 8, 07/19/2017 Colon Cancer Screening (Colonoscopy) 2024 DTap / Tdap / Td (2 - Td or Tdap) 07/21/2024 07/21/2014 Pneumococcal Vaccine Aged Out 03/23/2007 No long er eligible based on patient's age to complete this topic Hepatitis B Vaccines Completed 10/09/2009, 04/03/2009, 03/05/2009 RSV Ped < 20 months Aged Out No longe r eligible based on patient's age to complete this topic Care Teams Envelope Folding Machine Adjuster Relationship Specialty Start Date End Date Tony Oropeza MD [address] [place] [id number] PCP - General Internal Medicine 07/14/23
--- OUTSIDE RECORDS SUMMARY | 2024-12-17 16:34 | XMS_ITS | Encounter Summary ---
Author Organization [facility] [place] [address] Care Team Providers Care Sem Manager Name Role Phone Tony Oropeza MD Primary Care Provider [phone] Encounter Details Date Type Department Care Team (Late st Contact Info) Description 05/21/2024 9:47 AM EDT Hospital Encounter TH H[facility]ORIC ENCOUNTERS [facility] Sherly Nelson PA [address] [place] [address] Social History Tobacco Use Types Packs/Day Years [...] Simons PA-C Service: -- Author Type: Physician Immunology Teacher Filed: 05/21/2024 4:39 PM Encounter Date: 05/21/2024 Status: Signed Shirt Sorter: Sherly Simons PA-C (Physician Immunology Teacher) Cosigner: Alee Jerez DO at 05/23/2024 9:31PM [...] sweaty. According to patient, she had a [employer] workup for menopause, which was negative. She is obese. She snores at night. Her PCP and buttonhole tacker are considering sleep study. She has chronic [...] MD Sign: Sherly Simons PA-C Hematology/Oncology Sister [facility] [phone] documented in this encounter Plan of Treatment [...] on filedocumented in this encounter Care Teams Sem Manager Relationship Specialty Start Date End Date Tony Oropeza MD [address] [place] [id number] PCP - General 07/14/23 documented as of this encounter
== END 2024-12-17 15:05 | disposition home or self-care (01) ==
PROVIDERS: Emergency Provider Emergency Medicine
DX: M79.604 Pain in right leg (principal); M79.89 Other specified soft tissue disorders; I48.0 Paroxysmal atrial fibrillation; Z79.01 Long term (current) use of anticoagulants
CPT/HCPCS: 73564; 93971; 99281; 99284

== ENCOUNTER → 2024-12-17 12:13 | Outpatient (BNV) | payer OTHER, SELFPAY | PROVIDERS: Visit Provider Radiology Diagnostic Radiology | DX: M25.561 Pain in right knee (principal); M25.461 Effusion, right knee | CPT/HCPCS: 73564; 93971 ==

== ENCOUNTER 2025-01-13 06:21 | Emergency (ER) | payer OTHER, SELFPAY ==
--- NOTE | ~2025-01-13 | XR_ITS ---
CLINICAL HISTORY: shoulder pain 4 view left shoulder Comparison: None Findings: No acute fracture or dislocation is identified. Mild marginal osteophyte formation is seen at the acromion. Soft tissue structures appear within normal limits. IMPRESSION: No acute osseous abnormality is identified. This document has been electronically signed by: Carmencita Boykin on 01/13/2025 07:14:37
[2025-01-13 06:25] VITALS: BP 142/76; PULSE 1; RESP 18; TEMP 36; O2SAT 95; BMI 41.0
--- NOTE | 2025-01-13 07:06 | ECG_ITS ---
Test Reason : LEFT SHOULDER PAIN Blood Pressure : */* mmHG Vent. Rate : 90 BPM Atrial Rate : 90 BPM P-R Int : 138 ms QRS Dur : 90 ms QT Int : 364 ms P-R-T Axes : 118 -28 150 degrees QTcB Int : 445 ms Normal sinus rhythm Low voltage QRS Septal infarct , age undetermined Abnormal ECG When compared with ECG of 22-May-2024 02:11, QRS axis Shifted left Septal infarct is now Present Nonspecific T wave abnormality now evident in Lateral leads Referred By: Nayeli Darby Electronically Signed By: Ryan De La Cruz
[2025-01-13 07:41] LABS: MANUAL DIFF FLAG NO
--- NOTE | 2025-01-13 07:42 | ED_ITS ---
HPI - Extremity Problem General Chief complaint: Extremity Problem Stated complaint: left shoulder pain Time Seen by Provider: 01/13/25 07:04 Source: patient Mode of arrival: ambulatory Limitations: no limitations History of Present Illness ED Provider: DR. Darby HPI Narrative: 44-year-old female history of atrial fibrillation on Xarelto presented for evaluation of 4 days of left shoulder/left-sided neck pain, patient declined injury or heavy lifting to the left shoulder recently patient attribute her left shoulder pain to probably sleeping wrong way. Pain is starting left side of the neck radiating to the left shoulder, pain is constant for the past 4 days, worsening with movement of the upper extremity, turning the neck, or raising the arm above the head. Patient tried Tylenol with partial relief. No chest pain, no shortness of breath, no recent travel, no lower extremity swelling or pain. Related Data Previous Rx's ?Medication ?Instructions ?Recorded albuterol sulfate 90 mcg/actuation 1 inh inhalation QID PRN shortness 12/14/21 aerosol inhaler of breath or wheezing #8.5 grams azithromycin 250 mg tablet See Rx Instructions PO .COMPLEX #6 12/14/21 tabs codeine 10 mg-guaifenesin 100 mg/5 5 ml PO Q6H PRN cold symptoms #120 12/14/21 mL oral liquid (Guaifenesin AC) mL prednisone 20 mg tablet 40 mg (2 x 20 mg) PO DAILY rash 5 12/14/21 days #10 tabs cyclobenzaprine 10 mg tablet 10 mg PO TID PRN muscle spasm #14 04/17/22 tabs ibuprofen 600 mg tablet 600 mg PO Q6H PRN pain #30 tabs 04/17/22 morphine 15 mg immediate release 15 mg PO TID PRN pain #12 tabs 04/17/22 tablet ondansetron 4 mg disintegrating 4 mg PO Q8H PRN nausea and 04/17/22 tablet vomiting #20 tabs diclofenac sodium 1 % topical gel 2 g topical .B.i.d. #100 grams 06/18/22 (Voltaren Arthritis Pain) albuterol sulfate 90 mcg/actuation 2 inh inhalation Q4-6H PRN 07/29/22 breath activated powder inhaler shortness of breath or wheezing #1 ea prednisone 20 mg tablet 40 mg (2 x 20 mg) PO DAILY 5 days 07/29/22 #10 tabs cyclobenzaprine 10 mg tablet 10 mg PO Q8H #20 tabs 01/31/23 tramadol 50 mg tablet 50 mg PO Q6H PRN pain #20 tabs 01/31/23 acetaminophen 500 mg tablet 500 mg PO Q6H PRN fever or pain 02/18/23 (Tylenol Extra Strength) #14 tabs cyclobenzaprine 5 mg tablet 5 mg PO Q8H PRN pain (scale score 02/18/23 7-10) 5 days #14 tabs lidocaine 5 % topical patch 1 patch topical DAILY PRN pain #30 02/18/23 (Lidoderm) ea naproxen 500 mg tablet 500 mg PO BID PRN pain 10 days #20 02/18/23 tabs ipratropium 0.5 mg-albuterol 3 mg 3 ml inhalation Q6H PRN shortness 06/17/23 (2.5 mg base)/3 mL nebulization of breath #90 mL soln prednisone 20 mg tablet 60 mg (3 x 20 mg) PO DAILY #12 tabs 06/17/23 cyclobenzaprine 10 mg tablet 10 mg PO TID PRN muscle spasm #20 06/26/23 tabs dexamethasone 4 mg tablet 4 mg PO BID #6 tabs 06/26/23 meclizine 25 mg chewable tablet 25 mg PO TID PRN dizziness #20 tabs 07/12/23 (Antivert) cyclobenzaprine 10 mg tablet 10 mg PO TID PRN muscle spasm #10 05/22/24 tabs doxycycline hyclate 100 mg capsule 100 mg PO BID #14 caps 07/05/24 tramadol 50 mg tablet 50 mg PO Q6H PRN severe pain 12/17/24 (scale score 7-10) #12 tabs oxycodone 5 mg tablet 5 mg PO Q8H PRN pain #7 tabs 01/13/25 Allergies Allergy/AdvReac Type Severity Reaction Status Date / Time peanut [PEANUT] Allergy Severe ANAPHYLAXIS Verified 01/13/25 06:29 banana Allergy Itching Verified 01/13/25 06:29 Review of Systems 2 Review of Systems: All other systems are reviewed and are negative Constitutional: Reports as per HPI and Reports no additional constitutional complaints Eyes: Reports as per HPI and Reports no additional eye complaints Reports system reviewed and no additional complaints, except as documented Cardiovascular: Reports as per HPI and Reports no additional cardiovascular complaints Respiratory: Reports as per HPI and Reports no additional respiratory complaints Gastrointestinal: Reports as per HPI and Reports no additional gastrointestinal complaints Genitourinary: Reports no additional female genitourinary complaints Musculoskeletal: Reports no additional musculoskeletal complaints Skin/Breast: Reports system reviewed and no additional complaints, except as docu Psychiatric: Reports no additional psychiatric complaints Endocrine: Reports no additional endocrine complaints Hematologic/Lymphatic: Reports no additional hematologic/lymphatic complaints Allergic/Immunologic: Reports no additional allergic/immunologic complaints Reports system reviewed and no additional complaints, except as documented and Reports Abnormal speech present [facility] Past Medical History Medical History Chronic anticoagulation Anxiety Bipolar 1 disorder Afib Asthma Social History Social History Unable to assess alcohol history related to: Unknown Alcohol intake: never Patient Tobacco Use Status: Never used Tobacco Substance Use Type: Marijuana Advance Directives: No Do you have a plan to hurt others: No Plan Physical Exam 2 Vital Signs: Vital Signs: Last Vital Signs Temp 96.8 F 01/13/25 06:25 Pulse 1 L 01/13/25 06:25 Resp 18 01/13/25 06:25 BP 142/76 H 01/13/25 06:25 Pulse Ox 95 01/13/25 06:25 O2 Del Method Room Air 01/13/25 06:25 BMI result Body Mass Index 41.0 Vital signs have been reviewed and appear to be correct. Blood pressure elevated. Heart rate normal. Respiratory rate normal. Temperature normal. Oxygen saturation normal. Appearance: Alert. Oriented X3. No acute distress. Head: Normal external exam. Normocephalic. Atraumatic. No Hansen signs noted. No raccoon eyes noted Eyes: PERRLA. EOMI. Conjunctiva and sclera normal. Eyelids normal. ENT: TM's Normal. Pharynx normal. Uvula midline. Moist mucous membranes. No trismus noted. No drooling noted. No muffled voice noted. Neck: Normal inspection. Neck supple. FROM. No adenopathy. Thyroid Normal. No meningeal signs. No neck mass noted. CVS: Normal heart rate and rhythm. Heart sound normal. No murmurs noted. Pulses normal throughout. Respiratory: No respiratory distress. Painless inspiration. Breath sounds normal. No wheezes/rales/rhonchi noted. Chest nontender. No accessory muscle usage noted or decreased air movement noted. Abdomen: Soft and nontender. Bowel sounds normal in all 4 quadrants. No distention noted. No organomegaly noted. No visible injury noted. Back: No CVA tenderness. Full range of motion noted. Skin: Skin warm and dry. Normal skin color. Normal skin turgor. No rashes/lesions/lacerations noted. Extremities: Left shoulder: Held in adduction position with painful abduction position, no step-off, no deformity, increased pain shooting to the left shoulder with turning the head to the right, raising left arm above the head. Neuro: Oriented X 3. Cranial nerve exam: II-XII are grossly intact No motor deficit. No sensory deficit. Reflexes normal. Course Reevaluation(s) Reevaluation #1: Left cervical radiculopathy. Oxycodone PRN, rest, heating pad, follow-up with PCP. Time: 09:00 Medical Decision Making Differential Diagnosis Differential Diagnoses: The differential diagnosis associated with the presentation includes (Cervical radiculopathy, rotator cuff of the left shoulder, ACS.) Admission/Observation Consideration of admission/observation: Escalation of care including admission/observation considered Lab Data MDM Lab Attestation statement: I reviewed the patient's lab results. 01/13/25 07:31 01/13/25 07:31 Independent Interpretation I performed an independent interpretation of an: Plain X-Ray (Left shoulder: No acute pathology.) Radiology Impression Discussion of test interpretation with radiology: I have reviewed the radiologist's reading. Discharge Plan Discharge Clinical Impression: Cervical radiculopathy Patient Disposition: Home, Self-Care Instructions: Cervical Radiculopathy (ED) Additional Instructions: Follow-up with your PCP in 1 week. Prescriptions: New oxycodone 5 mg tablet 5 mg PO Q8H PRN (Reason: pain) Qty: 7 0RF Rx Instructions: Partial Fill upon patient request. No Action albuterol sulfate 90 mcg/actuation HFA aerosol inhaler 1 inh inhalation QID PRN (Reason: shortness of breath or wheezing) Qty: 8.5 0RF azithromycin 250 mg tablet See Rx Instructions .ROUTE .COMPLEX Qty: 6 0RF Rx Instructions: take 500 mg today (day 1), then 250 mg for 4 days (days 2-5) codeine-guaifenesin [Guaifenesin AC] 10-100 mg/5 mL liquid 5 ml PO Q6H PRN (Reason: cold symptoms) Qty: 120 0RF prednisone 20 mg tablet 40 mg PO DAILY 5 Days Qty: 10 0RF cyclobenzaprine 10 mg tablet 10 mg PO TID PRN (Reason: muscle spasm) Qty: 14 0RF ibuprofen 600 mg tablet 600 mg PO Q6H PRN (Reason: pain) Qty: 30 0RF morphine 15 mg tablet 15 mg PO TID PRN (Reason: pain) Qty: 12 0RF Rx Instructions: partial fill okay; Partial Fill upon patient request. ondansetron 4 mg tablet,disintegrating 4 mg PO Q8H PRN (Reason: nausea and vomiting) Qty: 20 0RF diclofenac sodium [Voltaren Arthritis Pain] 1 % gel 2 g topical .B.i.d. Qty: 100 0RF Rx Instructions: Apply to affected area twice daily albuterol sulfate 90 mcg/actuation aerosol powdr breath activated 2 inh inhalation Q4-6H PRN (Reason: shortness of breath or wheezing) Qty: 1 0RF prednisone 20 mg tablet 40 mg PO DAILY 5 Days Qty: 10 0RF acetaminophen [Tylenol Extra Strength] 500 mg tablet 500 mg PO Q6H PRN (Reason: fever or pain) Qty: 14 0RF lidocaine [Lidoderm] 5 % adhesive patch,medicated 1 patch topical DAILY MDD remove after 12 hours PRN (Reason: pain) Qty: 30 0RF Rx Instructions: leave on most painful area for up to 12 hrs naproxen 500 mg tablet 500 mg PO BID PRN (Reason: pain) 10 Days Qty: 20 0RF cyclobenzaprine 5 mg tablet 5 mg PO Q8H PRN (Reason: pain (scale score 7-10)) 5 Days Qty: 14 0RF meclizine [Antivert] 25 mg tablet,chewable 25 mg PO TID PRN (Reason: dizziness) Qty: 20 0RF doxycycline hyclate 100 mg capsule 100 mg PO BID Qty: 14 0RF tramadol 50 mg tablet 50 mg PO Q6H PRN (Reason: severe pain (scale score 7-10)) Qty: 12 0RF cyclobenzaprine 10 mg tablet 10 mg PO Q8H Qty: 20 0RF tramadol 50 mg tablet 50 mg PO Q6H PRN (Reason: pain) Qty: 20 0RF ipratropium-albuterol 0.5 mg-3 mg(2.5 mg base)/3 mL solution for nebulization 3 ml inhalation Q6H PRN (Reason: shortness of breath) Qty: 90 0RF prednisone 20 mg tablet 60 mg PO DAILY Qty: 12 0RF dexamethasone 4 mg tablet 4 mg PO BID Qty: 6 0RF cyclobenzaprine 10 mg tablet 10 mg PO TID PRN (Reason: muscle spasm) Qty: 20 0RF cyclobenzaprine 10 mg tablet 10 mg PO TID PRN (Reason: muscle spasm) Qty: 10 0RF Stand Alone Forms: Work/School Release Print Language: Marshallese
[2025-01-13 07:50] LABS: Basophils Absolute Auto 0.1 X10*3/uL (0.0-0.2); Basophils Percent Auto 0.5 % (0-2); Eosinophils Absolute Auto 0.2 X10*3/uL (0.0-0.4); Eosinophils Percent Auto 2.2 % (0-4); Hematocrit 34.9 % (37.0-47.0); Hemoglobin 11.7 g/dl (12.0-16.0); Imm Gran Abs Auto 0.05 X10*3/uL (0.00-0.03); Imm Gran Pct Auto 0.5 % (0.0-0.4); Lymphocytes Absolute Auto 2.8 X10*3/uL (1.2-4.9); Lymphocytes Percent Auto 26.7 % (20-40); Mean Corpuscular HGB Conc 33.5 g/dl (31.0-35.0); Mean Corpuscular Hemoglobin 29.5 pg (27.0-33.0); Mean Corpuscular Volume 87.9 fL (80.0-98.0); Mean Platelet Volume 9.4 fL (9.4-12.3); Monocytes Absolute Auto 0.6 X10*3/uL (0.1-1.2); Monocytes Percent Auto 5.4 % (2-11); Neutrophils Absolute Auto 6.8 x10*3/uL (2.0-8.3); Neutrophils Percent Auto 64.7 % (45-73); Platelet Count 259 X10*3/uL (160-400); Red Blood Count 3.97 X10*6/uL (4.20-5.50); Red Cell Distribution Width 13.2 % (11.0-16.0); White Blood Count 10.5 X10*3/uL (4.8-10.8)
[2025-01-13 07:55] LABS: Alanine Aminotransferase 14 U/L (0-31); Albumin Level 3.9 g/dL (3.5-5.0); Alkaline Phosphatase 85 U/L (39-117); Anion Gap 13 (12-20); Aspartate Amino Transferase 16 U/L (5-31); Bilirubin Total 0.1 mg/dL (0.0-1.0); Blood Urea Nitrogen 19 mg/dL (9-16); Calcium 8.9 mg/dL (8.4-10.2); Carbon Dioxide 27 mmol/L (22-29); Chloride 105 mmol/L (96-108); Creatinine Clr Calc Pharmacy 134.1; Estimated Glomerular Filt Rate > 60; Glucose Random 123 mg/dL (60-115); Potassium 3.7 mmol/L (3.3-5.1); Sodium 141 mmol/L (135-145); Total Protein 6.1 g/dL (6.5-8.0)
--- NOTE | 2025-01-13 07:56 | PC.NURSE ---
high fat meal for dinner last night.
[2025-01-13 08:05] LABS: Troponin-I High Sensitivity < 2.7 ng/L (<3.5-17.0)
[2025-01-13] MEDS: oxyCODONE HCl Immed Release 5 MG TABLET PO (08:34)
[2025-01-13 08:39] VITALS: BP 145/77; PULSE 95; RESP 18; TEMP 36.9; O2SAT 93
[2025-01-13 08:41] VITALS: BP 145/77; PULSE 95; RESP 18; TEMP 36.9; O2SAT 93
== END 2025-01-13 08:43 | disposition home or self-care (01) ==
PROVIDERS: Emergency Provider Emergency Medicine
DX: M54.12 Radiculopathy, cervical region (principal); M54.2 Cervicalgia; M25.512 Pain in left shoulder; J45.909 Unspecified asthma, uncomplicated; I48.91 Unspecified atrial fibrillation; Z79.01 Long term (current) use of anticoagulants
CPT/HCPCS: 36415; 73030; 80053; 84484; 85025; 93005; 99283; 99284

== ENCOUNTER → 2025-01-13 06:38 | Outpatient (BNV) | payer OTHER, SELFPAY | PROVIDERS: Emergency Provider Emergency Medicine; Visit Provider Radiology Vascular & Interventional Radiology | DX: M25.512 Pain in left shoulder (principal) | CPT/HCPCS: 73030 ==

== ENCOUNTER → 2025-01-13 07:06 | Outpatient (BNV) | payer OTHER, SELFPAY | PROVIDERS: Emergency Provider Emergency Medicine; Visit Provider Internal Medicine Cardiovascular Disease | DX: R94.31 Abnormal electrocardiogram [ECG] [EKG] (principal); M25.512 Pain in left shoulder | CPT/HCPCS: 93010 ==

== ENCOUNTER 2025-04-02 08:15 | Outpatient (REF) | payer OTHER, SELFPAY ==
--- OUTSIDE RECORDS SUMMARY | 2024-05-21 09:47 | XMS_ITS | Encounter Summary ---
Author Organization [facility] [place] [address] Care Team Providers Care Adoption Agent Name Role Phone Tony Oropeza MD Primary Care Provider [phone] Encounter Details Date Type Department Care Team (Late st Contact Info) Description 05/21/2024 9:47 AM EDT Hospital Encounter TH HISTORIC ENCOUNTERS [facility] [place] Sherly Nelson PA [address] [place] [address] Social History Tobacco Use Types Packs/Day Years [...] Simons PA-C Service: -- Author Type: Physician Fleet Sales Associate Filed: 05/21/2024 4:39 PM Encounter Date: 05/21/2024 Status: Signed Magistrate Judge: Sherly Simons PA-C (Physician Fleet Sales Associate) Cosigner: Alee Jerez DO at 05/23/2024 9:31PM [...] sweaty. According to patient, she had a PATIENT SERVICE TECHNICIAN PST workup for menopause, which was negative. She is obese. She snores at night. Her PCP and paper baler are considering sleep study. She has chronic [...] MD Sign: Sherly Simons PA-C Hematology/Oncology [facility] [phone] documented in this encounter Plan of Treatment [...] on filedocumented in this encounter Care Teams Adoption Agent Relationship Specialty Start Date End Date Tony Oropeza MD [address] [place] [id number] PCP - General 07/14/23 documented as of this encounter
--- OUTSIDE RECORDS SUMMARY | 2025-04-02 08:21 | XMS_ITS | Clinical Summary ---
Author Organization [facility] Address [address] [place] [address] Care Team Providers Care [employer] Roustabout Name Role Phone Tony Oropeza MD Primary Care Provider [phone] Allergies Active Allergy Reactions Criticality Noted Date [...] 91 05/21/2024 9:53 AM EDT Temperature 36.7 C (98 F) 05/21/2024 9:53 AM EDT Respiratory Rate - [...] Vaccine (2023-2 5 season) 2024 10/02/2020, 09/11/2020 Colon Cancer Screening (Colonoscopy) 2024 DTap / Tdap / Td (2 - Td or Tdap) 07/21/2024 07/21/2014 Influenza Vaccine (#1) 2025 8, 07/19/2017 Pneumococcal Vaccine Aged Out 03/23/2007 No long er eligible based on patient's age to complete this topic Hepatitis B Vaccines Completed 10/09/2009, 04/03/2009, 03/05/2009 RSV Ped < 20 months Aged Out No longe r eligible based on patient's age to complete this topic Care Teams [employer] Roustabout Relationship Specialty Start Date End Date Tony Oropeza MD [address] [place] [address] PCP - General Internal Medicine 07/14/23
--- OUTSIDE RECORDS SUMMARY | 2025-04-02 08:21 | XMS_ITS | Clinical Summary ---
Author Organization [facility] Address [address] [place], [place] [id number] Phone Care Team Providers Care Chain Hoist Operator Name Role Phone Annel Bowden MD Primary Care Provider [phone] Allergies Active Allergy Reactions Criticality Noted Date Comments Banana Throat Tightness Medium 07/26/2022 Peanut Anaphylaxis High 05/06/2024 Flavoring Agent (Bulk) Anaphylaxis High 08/31/2017 Tree Nut Anaphylaxis High 08/31/2017 Tree Nuts Anaphylaxis High 05/06/2024 Medications albuterol 90 mcg/actuation inhaler as needed. Active EPINEPHrine 0.3 mg/0.3 mL auto-injector Active venlafaxine (EFFEXOR) 37.5 MG tablet Take 37.5 mg by mouth daily. Active venlafaxine (EFFEXOR) 75 MG tablet Take 75 mg by mouth daily. To take with the 37.5mg tab Active montelukast (SINGULAIR) 10 mg tablet Take 10 mg by mouth daily. 4 Active lamoTRIgine (LAMICTAL) 200 MG IMMEDIATE release tablet Take 200 mg by mouth every morning. 5 Active atomoxetine (STRATTERA) 40 MG capsule take two capsules by mouth every morning 5 Active flecainide (TAMBOCOR) 100 MG tabletIndications :Medication refill Take 1 tablet (100 mg total) by mouth 2 (two) times a day. 60 tablet 11 5 Active rivaroxaban (XARELTO) 20 mg TabIndications:Pa roxysmal atrial fibrillation Take 1 tablet (20 mg total) by mouth daily with dinner. 30 tablet 11 5 Active Active Problems Problem Noted Date Diagnosed Date Sinus tachycardia 02/06/2024 Assessment & Plan (02/06/2024 3:00 PM EDT): She has sinus tachycardia on ECG today in the setting of multiple ECGs of albuterol nebulizer. She has an upcoming appointment with a new PCP next month tells me. I have asked her to inquire about perhaps switching to something like Xopenex which might not have as much of an effect on her heart rate Encounter for preoperative assessment 12/16/2021 Overview (12/16/2021): Patient requesting cardiac clearance needed for me 10th with Dr. Hraper. Bipolar disorder with moderate depression 2018 Class 3 severe obesity due t o excess calories with serious comorbidity and body mass index (BMI) of 40.0 to 44.9 in adult 10/16/2018 Assessment & Plan (05/17/2024 1:24 PM EDT): She does report shortness of breath on occasion but this is likely due to her weight. She is encouraged to lose weight however she states that she is physically not able to do exercise and states she has a difficult time with losing weight. Assessment & Plan (07/26/2022 3:44 PM EST): She will need to continue to work on her diet exercise and lifestyle modification. Her BMI remains elevated at 39. 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 She continues to take flecainide 100 mg twice daily which she will continue without change Paroxysmal atrial fibrillation 08/23/2017 Overview (08/23/2017): Treated with flecainide Assessment & Plan (11/18/2024 1:08 PM EDT): Denies any symptoms for this. She is on Xarelto 20 mg daily. She is also rate controlled on flecainide 100 mg twice daily. Assessment & Plan (05/17/2024 1:24 PM EDT): With a history for paroxysmal atrial fibrillation. She is on flecainide 100 mg twice daily which she will continue. She is also on Xarelto 20 mg daily to coagulation. She denies any symptoms for atrial fibrillation at this time. Assessment & Plan (02/06/2024 2:59 PM EDT): She thinks she is still having atrial fibrillation approximately every couple months based on sensation of palpitations. Currently taking aspirin 81 mg daily as well as flecainide 100 mg twice daily. Due to her mental health issues she tells me she is not taking her diltiazem or her Xarelto for probably 2 years. Based on sex her [id number] score is 1 or at 0.6% risk of stroke per year. Her other risk factors are unclear, she has not had labs done in a few years. She has had some prior glucose elevations on metabolic panels. Her blood pressure is also elevated here in the office today 130/96. -I have ordered her for a blood pressure cuff as well as some labs to include an A1c to further risk stratify her in terms of [id number] -Have reordered for her Xarelto to be taken as 20 mg nightly -She can continue flecainide. No symptoms concerning for angina. I have ordered her for a lipid panel. We should control the modifiable risk factors for coronary disease. Assessment & Plan (07/26/2022 3:44 PM EST): She has not had any recurrent palpitations suggestive of atrial arrhythmias. She continues anticoagulation with Xarelto. She is status post PVI as well as slow pathway modification for her SVT/AVNRT. She has not had any recurrent episodes and feels well today. History of cardiac radiofrequency ablation 01/03 /2018 Overview (08/23/2017): AVNRT, slow pathway ablation, remote Obstructive sleep apnea of adult 08/23/2017 Assessment & Plan (05/17/2024 1:24 PM EDT): She states she does not have a history for MYA though in the past she has told other providers that she does have MYA and is not using a CPAP. I did ask her if she would like to do another sleep study test but she feels that she has other things to worry about right now such as finding out if she has leukemia. Untreated MYA is a factor for atrial fibrillation Assessment & Plan (02/06/2024 3:00 PM EDT): She is not wearing CPAP and has not for many years. She still snores a lot she says. I have asked her to talk to her PCP at upcoming appointment about getting reevaluated for this and treated for MYA as this is a risk factor for ongoing episodes of atrial fibrillation. Social History Tobacco Use Types Packs/Day Years Used Date Smoking Tobacco: Never Smokeless Tobacco: Never Tobacco Cessation:Counseling Given: Not Answered Alcohol Use Standard Drinks/Week Comments Yes 0 (1 standard drink = 0.6 oz pur e alcohol) occasionally Education Answer Date Recorded Are you interested in more education? Not on danny e 12/16/2022 Are you concerned about learning? Not on file 12/16/2022 No 12/16/2022 No 12/16/2022 Digital Access Answer Date Recorded No 01/11/2023 No 01/11/2023 Reliable internet access at home? Not on file 01/11/2023 Device with a working camera? Not on file Comments Unknown Sex and Gender Information Value Date Recorded Sex Assigned at Not on file Legal Sex Female 10:29 PM EDT Gender Identity Not on file Sexual Orientation Not on file Last Filed Vital Signs Vital Sign Reading Time Taken Comments Blood Pressure 136/70 11/18/2024 12:35 PM EDT Pulse 102 11/18/2024 12:35 PM EDT Temperature - - Respiratory Rate 14 04/09/2019 4:46 PM EDT Oxygen Saturation 98% 11/18/2024 12:35 PM EDT Inhaled Oxygen Concentration - - Weight 122 kg (269 lb) 11/18/2024 12:35 PM EDT Height 172 cm (5' 7.72 ) 11/18/2024 12:35 PM EDT Body Mass Index 41.24 11/18/2024 12:35 PM EDT Plan of Treatment Upcoming Encounters Date Type Department Care Team (Late st Contact Info) Description 11/18/2025 12:30 PM EDT Office Visit [facility] [address], [address] [place] [address] Shonda Albert, MEGAN [address], [address] [place] [address] [email or web address] Health Maintenance Due Date Last Done Comments LIPID PANEL 1979 DEPRESSION SCREENING 1991 HEPATITIS C SCREENING 1997 HIV ONE-TIME SCREENING (18-6 5 YEARS) 1997 PAP SMEAR 2000 MAMMOGRAM 2019 COVID-19 VACCINE (3 - 2023-2 5 season) 2024 10/02/2020, 09/11/2020 COLOGUARD 2024 COLONOSCOPY 2024 COLORECTAL CANCER SCREENING 2024 FIT TEST 2024 FOBT 2024 SIGMOIDOSCOPY 2024 VIRTUAL COLONOSCOPY 2024 Adult Td,Tdap Booster 07/21/2024 07/21/2014 , 12/27/2004 CREATININE LEVEL 02/05/2025 02/06/2024, 03/06/2019, 06/07/2018 SCREENING FOR DIABETES 02/05/2027 , 02/06/2024 PNEUMOCOCCAL VACCINES (0-49 years) Aged Out 03/23/2007 No longer eligible b ased on patient's age to complete this topic SMOKING STATUS SCREENING (On ce After 26 Yrs) Completed 11/18/2024 HEPATITIS A VACCINES Aged Out No long er eligible based on patient's age to complete this topic HIB VACCINES Aged Out No longer eligi ble based on patient's age to complete this topic MENINGOCOCCAL VACCINES (ACWY) Aged Out No longer eligible based on patient's age to complete this topic MENINGOCOCCAL VACCINES (B) Aged Out N o longer eligible based on patient's age to complete this topic Medical Devices Not on file Procedures Procedure Name Priority Date/Time Associated Diagnosis Comments BASIC METABOLIC PANEL Routine 02/06/2024 2:58 PM EDT Paroxysmal atrial fibrillation from Last 3 Months or Most Recently Relevant to Health Maintenance Results * (ABNORMAL) Basic metabolic panel (02/06/2024 2:58 PM EDT) SODIUM 138 133 - 146 mmol/L [facility] CHLORIDE 102 96 - 108 mmol/L [facility] POTASSIUM 4.0 3.3 - 5.1 mmol/L [facility] CO2 23 21 - 35 mmol/L [facility] BUN 17 6 - 19 mg/dL [facility] CREATININE 0.70 0.5 - 1.5 mg/dL [facility] GLUCOSE 106(H) 70 - 99 mg/dL [facility] CALCIUM 9.2 8.4 - 10.3 mg/dL [facility] EGFR 109 >59 mL/min/1.7 3m2 [facility] Comment:Estimated glomerular filtration rate calculated using the CKD-EPI refit equation. ANION GAP 17 10 - 20 mmol/L [facility] Blood 02/06/2024 2:58 PM EDT 02/06/2024 3:03 PM EDT Julieta Cowan [facility] LAB BLOOD ORDERABLES Fin al Result [address] [id number] from Last 3 Months or Most Recently Relevant to Health Maintenance Insurance [facility] NON NSPG PCP [employer] [place] [employer] NON NSPG PCP [employer] NON NSPG PCP S[employer] NON NSPG PCP [facility] [place] [address] [place], [place] [address]ENSE NON NSPG PCP S[employer] [facility] [place] [address] NON NSPG PCP [employer] Care Teams Chain Hoist Operator Relationship Specialty Start Date End Date Annel Bowden MD [address] [place] [address] PCP - General 06/08/17 Additional Source Comments The information contained in this document represents components of the legal health record. It is not the complete legal health record.[facility]
--- OUTSIDE RECORDS SUMMARY | 2025-04-02 08:22 | XMS_ITS ---
Author Name [facility] Organization Unknown Care Team Organization Name Specialty Phone Email Start Date End Da te [facility] Tony Oropeza Primary Care 12/26/2022 024 [facility] FLORIAN CERNA Primary Care 06/28/2022 04/08/20 24
--- NOTE | 2025-04-02 09:49 | MHC.AU.HA3 ---
Hearing Instrument Follow-Up- Binaural Date of Visit: 04/02/25 Right Ear: Make, Model, Color, Serial Number: Oticon Real 2 miniRITE R pink SN [id number] Customer Business Manager Repair Warranty: 01/10/2027 Customer Business Manager Loss and Damage Warranty: 01/10/2027 [facility] Service Plan: 12/27/2024 Battery Size: Rechargeable Resident Care Coordinator/Slim Tube: 2 85g Earmold/Dome/CShell/SlimTip:Acrylic Skeleton [id number] Type of Wax Guard: Minifit ProWax Dispensed By: [facility] Date of Fittin12/28/2023 Left Ear: Make, Model, Color, Serial Number: Oticon Real 2 miniRITE R Della SN [id number] Customer Business Manager Repair Warranty: 01/10/2027 Customer Business Manager Loss and Damage Warranty: 01/10/2027 [facility] Service Plan: 12/27/2024 Battery Size: Rechargeable Resident Care Coordinator/Slim Tube: 2 85g Earmold/Dome/CShell/SlimTip: Acrylic Skeleton [id number] Type of Wax Guard: Minifit ProWax Dispensed By: [facility] Date of Fittin12/28/2023 Follow-Up Summary: Aids d/o off. C/o right might be clogged, left not working. Cleaned all, brushed out microphones, replaced all wax guards, ran through dehumidifier. Listening check positive. Recommendations: Recommendations: Hearing instrument follow-up or maintenance as needed. Diagnosis Code(s): Primary Diagnosis: H90.3 Bilateral Sensorineural Hearing Loss Signature: Provider: Brigid Magallanes, [facility]
== END 2025-04-02 08:16 | disposition home or self-care (01) ==
LOC: HO.SH 08:15
PROVIDERS: PCP Radiology Vascular & Interventional Radiology; Visit Provider Radiology Vascular & Interventional Radiology
DX: Z13.89 Encounter for screening for other disorder (principal)

== ENCOUNTER 2025-04-03 09:00 | Outpatient (REF) | payer SELFPAY ==
--- OUTSIDE RECORDS SUMMARY | 2024-05-21 09:47 | XMS_ITS | Encounter Summary ---
Author Organization [facility] [place] [address] Care Team Providers Care Mechanist Name Role Phone Tony Oropeza MD Primary Care Provider [phone] Encounter Details Date Type Department Care Team (Late st Contact Info) Description 05/21/2024 9:47 AM EDT Hospital Encounter TH HISTORIC ENCOUNTERS [facility] Sherly Nelson PA [address] [place] [address] Social History Tobacco Use Types Packs/Day Years [...] Simons PA-C Service: -- Author Type: Physician Planning Director Filed: 05/21/2024 4:39 PM Encounter Date: 05/21/2024 Status: Signed Embroidery Designer: Sherly Simons PA-C (Physician Planning Director) Cosigner: Alee Jerez DO at 05/23/2024 9:31PM [...] sweaty. According to patient, she had a BAIT MAKER workup for menopause, which was negative. She is obese. She snores at night. Her PCP and charge weigher are considering sleep study. She has chronic [...] MD Sign: Sherly Simons PA-C Hematology/Oncology [facility] [phone] documented in this encounter Plan of Treatment [...] on filedocumented in this encounter Care Teams Mechanist Relationship Specialty Start Date End Date Tony Oropeza MD [address] [place] [phone] PCP - General 07/14/23 documented as of this encounter
--- OUTSIDE RECORDS SUMMARY | 2025-04-03 09:18 | XMS_ITS | Clinical Summary ---
Author Organization [facility] Address [address] [place], [place] [address] Phone Care Team Providers Care Bank Credit Card Collection Clerk Name Role Phone Annel Bowden MD Primary Care Provider [phone] Allergies Active Allergy Reactions Criticality Noted Date [...] clearance needed for me 10th with Dr. Harper. Bipolar disorder with moderate depression 2018 Class [...] probably 2 years. Based on sex her [id number] score is 1 or at 0.6% risk [...] further risk stratify her in terms of [id number] -Have reordered for her Xarelto to be [...] Description 11/18/2025 12:30 PM EDT Office Visit [facility] [address] [facility] 3rd Floor, [address] [place] [address] Shonda Albert, MEGAN [address] [facility], [address] [place] [address] [email or web address] Maintenance Due Date Last Done Comments [...] EDT) SODIUM 138 133 - 146 mmol/L [facility] CHLORIDE 102 96 - 108 mmol/L [facility] POTASSIUM 4.0 3.3 - 5.1 mmol/L [facility] CO2 23 21 - 35 mmol/L [facility] BUN 17 6 - 19 mg/dL [facility] CREATININE 0.70 0.5 - 1.5 mg/dL [facility] GLUCOSE 106(H) 70 - 99 mg/dL [facility] CALCIUM 9.2 8.4 - 10.3 mg/dL [facility] EGFR 109 >59 mL/min/1.7 3m2 [facility] Comment:Estimated glomerular filtration rate calculated using the CKD-EPI refit equation. ANION GAP 17 10 - 20 mmol/L [facility] Blood 02/06/2024 2:58 PM EDT 02/06/2024 3:03 PM EDT Julieta Cowan [facility] LAB BLOOD ORDERABLES Fin al Result [address] [address] from Last 3 Months or Most Recently Relevant to Health Maintenance Insurance [facility] NON NSPG PCP [employer]IS [employer] NON NSPG PCP SILVER CLARITY CONNE[employer]CARE [employer] NON NSPG PCP SILVER CLARITY CONNECTORCARE WELL[employer] NON NSPG PCP SILVER CLARITY CONNECTORCARE [address] [place], [place] [id number] NON NSPG PCP SILVER [employer]ITY [facility] [address] NON NSPG PCP [employer] Care Teams Bank Credit Card Collection Clerk Relationship Specialty Start Date End Date Annel Bowden MD [address] [place] [address] PCP - General 06/08/17 Additional Source Comments The information contained in this document represents components of the legal health record. It is not the complete legal health record.[facility]
--- OUTSIDE RECORDS SUMMARY | 2025-04-03 09:18 | XMS_ITS | Clinical Summary ---
Author Organization [facility] Address [address] [place] [address] Care Team Providers Care Credentialing Analyst Name Role Phone Tony Oropeza MD Primary Care Provider [phone] Allergies Active Allergy Reactions Criticality Noted Date [...] age to complete this topic Care Teams Credentialing Analyst Relationship Specialty Start Date End Date Tony Oropeza MD [address] [place] [address] PCP - General Internal Medicine 07/14/23
== END 2025-04-03 09:01 | disposition home or self-care (01) ==
LOC: HO.HAP 09:00
PROVIDERS: Visit Provider Radiology Vascular & Interventional Radiology
DX: Z46.1 Encounter for fitting and adjustment of hearing aid (principal); H90.3 Sensorineural hearing loss, bilateral
CPT/HCPCS: 92593

== ENCOUNTER 2025-04-14 14:16 | Outpatient (AMB) | payer OTHER, SELFPAY ==
--- OUTSIDE RECORDS SUMMARY | 2024-05-21 09:45 | XMS_ITS | Encounter Summary ---
Author Organization [facility] [place] [address] Care Team Providers Care Cosmetic Maker Name Role Phone Tony Oropeza MD Primary Care Provider Encounter Details Date Type Department Care Team (Late st Contact Info) Description 05/21/2024 9:45 AM EDT Hospital Encounter TH HISTORIC ENCOUNTERS EAST[facility] CONVERSION ONLY Sherly Simons PA [address] [place] [address] Social History Tobacco Use Types Packs/Day Years Used Date Smoking Tobacco: Never Smokeless Tobacco: Never Alcohol Use Standard Drinks/Week Comments Not Currently 0 (1 standard drink = 0.6 oz pur e alcohol) Comments Unknown Sex and Gender Information Value Date Recorded Sex Assigned at Not on file Legal Sex Female 5:14 PM EST Gender Identity Not on file Sexual Orientation Not on file documented as of this encounter Plan of Treatment Not on file documented as of this encounter Visit Diagnoses Not on filedocumented in this encounter Care Teams Cosmetic Maker Relationship Specialty Start Date End Date Tony Oropeza MD [address] [phone] PCP - General 07/14/23 documented as of this encounter
--- OUTSIDE RECORDS SUMMARY | 2024-05-21 09:47 | XMS_ITS | Encounter Summary ---
Author Organization [facility] [place] [address] Care Team Providers Care Office Mail Clerk Name Role Phone Tony Oropeza MD Primary Care Provider [phone] Encounter Details Date Type Department Care Team (Late st Contact Info) Description 05/21/2024 9:47 AM EDT Hospital Encounter TH HISTORIC ENCOUNTERS [facility] ([place], [place]) Sherly Nelson PA [address] [place] [address] Social History Tobacco Use Types Packs/Day Years [...] on file documented as of this encounter Last Filed Vital Signs Vital Sign Reading Time Taken Comments Blood Pressure 140/79 05/21/2024 9:53 AM EDT Pulse 91 05/21/2024 9:53 AM EDT Temperature - - Respiratory Rate - - Oxygen Saturation - - Inhaled Oxygen Concentration - - Weight 122 kg (268 lb) 05/21/2024 9:52 AM EDT Height 172.7 cm (5' 8 ) 05/21/2024 9:52 AM EDT Body Mass Index 40.75 05/21/2024 9:52 AM EDT documented in this encounter Progress Notes * SURINDER Cox 05/21/2024 9:45 AM EDT Images from the original note were not included. Progress Notes by Sherly Simons PA-C at 05/21/2024 9:45 AM Author: Sherly Simons PA-C Service: -- Author Type: Physician Environmental Web Crawler Filed: 05/21/2024 4:39 PM Encounter Date: 05/21/2024 Status: Signed Farm Equipment Operator: Sherly Simons PA-C (Physician Environmental Web Crawler) Cosigner: Alee Jerez DO at 05/23/2024 9:31PM Dear Dr. Oropeza, Thank you very much for referring this patient for consultation. HPI: 44-year-old female who returns to our hematology clinic for follow up of leukocytosis. She is here to discuss lab results. WBC has come back down to normal range and there are no other cell line abnormalities or anemia associated with it. 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 She would likely benefit from weight loss and consider sleep study to r/o MYA if leukocytosis returns. She has no new medical complaints at this time. (copied from prior note for clinical reference and updated as needed) Records indicate presence of leukocytosis since at least 2004, with a few normal values in between.WBC elevation has oscillated between 11.0 and 16.2. Most recent WBC value was 13.2 with elevated neutrophil count but with normal lymphocyte, monocyte and basophil counts. No other cell line abnormalities or anemia associated with it. She is not a smoker. No frequent steroids use. She admits to hot flashes versus night sweats for the past year and a half. It happens on most nights, she wakes up with the back of her neck and head sweaty. According to patient, she had a ASSESSMENT EXPERT workup for menopause, which was negative. She is obese. She snores at night. Her PCP and pile driver operator helper are considering sleep study. She has chronic fatigue. She denies unintentional weight loss, swollen glands, fever or chills, URI symptoms, GI or symptoms. ROS: GENERAL: + malaise, significant weight loss or fever NECK: No lumps, goiter, pain or significant neck swelling RESPIRATORY: No cough, wheezing or shortness of breath CARDIOVASCULAR: No chest pain, leg swelling or palpitations GI: No abdominal discomfort, blood in stools or black stools MUSCULOSKELETAL: No joint pain or swelling, back pain, or muscle pain. HEMATOLOGY/LYMPHOLOGY No prolonged bleeding, easy bruisability or swollen nodes Other Systems review is non contributory PAST MEDICAL HISTORY: Active Ambulatory Problems Diagnosis Date Noted ? No Active Ambulatory Problems Resolved Ambulatory Problems Diagnosis Date Noted ? No Resolved Ambulatory Problems Past Medical History: Diagnosis Date ? Atrial fibrillation (HCC) ? 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 CARDIAC ELECTROPHYSIOLOGY MAPPING AND ABLATION ? SECTION SOCIAL HISTORY: Social History Tobacco Use ? Smoking status: Never ? Smokeless tobacco: Never Substance Use Topics ? Alcohol use: Not Currently She has not had any alcohol for the past 9 years. She smokes weed. It was previously documented that she was a former smoker. However, patient clarified and said thatcezar has had a few cigarettes sporadically when she was younger and she was out with friends but it was for a short period of time and she never smoked consistently and never even purchased cigaretteson her own. FAMILY HISTORY: No family history on file. Aunt had colon cancer Father prostate cancer Maternal grandmother lung cancer (not a smoker) Paternal great uncle had leukemia MEDICATIONS: Current Outpatient Medications: ? albuterol 108 (90 Base) MCG/ACT inhaler, Inhale 2 puffs into the lungs every 6 (six) hours as needed for wheezing., Disp: , Rfl: ? EPINEPHrine (EPIPEN 2-KAITY IJ), Inject as directed., Disp: , Rfl: ? flecainide (TAMBOCOR) 100 MG tablet, Take 1 tablet (100 mg total) by mouth 2 (two) times a day., Disp: , Rfl: ? lamoTRIgine (LaMICtal) 100 MG tablet, Take 1 tablet (100 mg total) by mouth daily., Disp: , Rfl: ? montelukast (SINGULAIR) 10 MG tablet, Take 1 tablet (10 mg total) by mouth every night at bedtime., Disp: , Rfl: ? rivaroxaban (Xarelto) 20 MG TABS tablet, Take by mouth., Disp: , Rfl: ? Venlafaxine HCl ER 225 MG TB24, Take by mouth., Disp: , Rfl: You are allergic to the following Date Reviewed: 05/06/2024 Allergen Reactions Peanuts Anaphylaxis Tree Nuts Anaphylaxis Banana Not Noted Itchy throat PHYSICAL EXAM: BP 140/79 Pulse 91 Temp 98 ??F (36.7 ??C) Ht 5' 8 (1.727 m) Wt 121.6 kg (268 lb) SpO2 96% BMI 40.75 kg/m?? APPEARANCE: Alert and in no acute distress EYES: PERRL, conjunctiva pink and sclera are Normal without icterus ORAL CAVITY: No erythema or exudates HEART: RRR with normal S1 and S2, no murmurs, no gallops, no JVD appreciated LUNG: clear to auscultation bilaterally EXTREMITIES: Extremities warm and well perfused without clubbing, cyanosis, rash or edema NEURO: Oriented X 3, no focal weakness; sensation is normal LABS: Due to technical issues, I am unable to copy and paste lab results. 05/06/24 WBC 10.6 RBC 4.2 Hemoglobin 12.4 Hematocrit 38.5 MCV 92.1 Platelet 276 Neutrophil # 7.31 Lymphocyte # 2.19 Monocyte # 0.71 BCR/abl (PCR) NOT DETCTED WBC HISTORY: Testing: Review of Lab results , interpreted Review of External Documentation ASSESSMENT SNOMED CT(R) 1. Leukocytosis, unspecified type LEUKOCYTOSIS 2. Morbid obesity with BMI of 40.0-44.9, adult (HCC) BODY MASS INDEX 40+ - SEVERELY OBESE PLAN: Leukocytosis: -Chronic issue since at least 2004, with a few normal values in between -WBC elevation has oscillated between 11.0 and 16.2 -Most recent WBC value is WNL at 10.6 with borderline elevated neutrophil count but with normal lymphocyte, monocyte and basophil counts -No other cell line abnormalities or anemia associated with it -BCR/abl test is negative -Normal renal and liver functions -Non smoker -This is likely a benign cyclic process -Follow up as needed Morbid obesity: --She is obese, which is known to cause/contribute to leukocytosis -She snores at night, therefore, she would be a good candidate for a sleep study to r/o MYA, which is also a known cause of leukocytosis -I will defer sleep study to PCP team -Counseled about weight loss Sherly Simons PA-C Cc: Tony Oropeza MD Sign: Sherly Simons PA-C Hematology/Oncology [facility] [phone] documented in this encounter Plan of Treatment Not on file documented as of this encounter Procedures Procedure Name Priority Date/Time Associated Diagnosis Comments ..MISCELLANEOUS REFERENCE LAB TEST 05/21/2024 ..MISCELLANEOUS REFERENCE LAB TEST 05/21/2024 documented in this encounter Results * Miscellaneous reference lab test (05/21/2024) us Provider Onbase MD LAB BLOOD ORDERABLES Final Re sult * Miscellaneous reference lab test (05/21/2024) us Provider Onbase MD LAB BLOOD ORDERABLES Final Re sult documented in this encounter Visit Diagnoses Not on filedocumented in this encounter Care Teams Office Mail Clerk Relationship Specialty Start Date End Date Tony Oropeza MD [address] [place] [address] [phone] PCP - General 07/14/23 documented as of this encounter
[2025-04-14 14:25] VITALS: PULSE 81; O2SAT 100
--- NOTE | 2025-04-14 14:25 | MHC.OFFWIV ---
Intake Vital Signs 04/14/25 14:25 Height 5 ft 8 in BMI Reason not done Patient refused/unable Pulse 81 Pulse Source Pulse Oximeter Pulse Oximetry (%) 100 Oxygen Delivery Method Room Air Intake Visit Reasons: Shortness of breath Intake Note: pt presents with increasing SOB, weakness, pale skinned since this morning. Had a head cold 2 days ago. Has been uptaking nebulizer treatment every hour. Patient Tobacco Use Status: Never used Tobacco Allergies peanut (PEANUT) Allergy (Severe, Verified 04/14/25 14:25) ANAPHYLAXIS banana Allergy (Verified 04/14/25 14:25) Itching Do you need a note to return to daycare/school/sports/work: No HPI HPI Comments History of Present Illness Details History of Present Illness - The patient is a 44-year-old female presenting with shortness of breath and wheezing. - She has a history of asthma and began experiencing cold symptoms on Monday, which progressed to wheezing and shortness of breath by today. - Despite using her nebulizer every hour, her symptoms have not improved, leading her to seek urgent care. - She feels like she is getting worse and can't breath. - She has no relief from the nebulizers. - She has a cough as well. - She has not had a fever, chills, CP, abd pain, n/v/d. Physical Exam General: Pale and diaphoretic, struggling to breathe, no acute distress Orientation: Patient oriented x3 Limitations: Struggling to breathe Head: Normal to inspection Ears: Hearing grossly normal bilaterally Nose: Normal external nose present Face and sinus: Normal facial exam Eyes: Appearance normal, both eyes and all related structures Neck: Normal visual inspection and Yes full ROM Respiratory: Wheezes noted throughout, struggling to breathe, having two to three word sentences Cardiovascular: Regular rate and rhythm, no murmurs or gallops GI: Soft to palpation and nontender, no guarding, no rebound Skin: Pale and diaphoretic, no rashes or lesions noted Neuro: Patient oriented x3 Extremities: Normal to inspection, no edema noted, negative Renata's signs bilaterally Patient was informed and verbally consented to the use of an ambient scribe for clinic note documentation during this visit. [facility] Medical History Chronic anticoagulation Anxiety Bipolar 1 disorder Afib Asthma Social History Unable to assess alcohol history related to: Unknown Alcohol intake: never Patient Tobacco Use Status: Never used Tobacco Substance Use Type: Marijuana Review of Systems Const All systems reviewed & are unremarkable except as noted in HPI and below Physical Exam Vital Signs: Last Vital Signs Pulse 81 04/14/25 14:25 Pulse Ox 100 04/14/25 14:25 Oxygen Delivery Method Room Air 04/14/25 14:25 Assessment & Plan Assessment & Plan (1) Shortness of breath: Code(s): R06.02 - Shortness of breath Plan Most likely asthma exacerbation Pt was placed on 2L O2 with a non-rebreather Plan - will send pt to the ER via ambulance - attempted to call in an expect to the [facility] and was unable to reach anyone Coding Level of Care Code New Pt Level 3 (77707) Diagnoses Shortness of breath R06.02
--- OUTSIDE RECORDS SUMMARY | 2025-04-14 15:48 | XMS_ITS | Clinical Summary ---
Author Organization [facility] it Address [address] [place] [address] Care Team Providers Care Embroidery Operator Name Role Phone Tony Oropeza MD Primary Care Provider [phone] Medications Ventolin HFA 90 mcg/actuation inhaler INHALE 2 PUFFS INTO THE LUNGS EVERY 6 HOURS NEEDED FOR COUGH, WHEEZING OR SHORTNESS OF BREATH. NOT TO EXCEED 12 INHALATIONS PER 24 HOURS. 18 g 5 5 Active montelukast (SINGULAIR) 10 mg tabletIndication s:Moderate persistent asthma without complication TAKE ONE TABLET BY MOUTH EVERY EVENING AT BEDTIME 90 tablet 5 Active albuterol 2.5 mg /3 mL (0.083 %) nebulizer solution USE 1 VIAL (3ML) VIA NEBULIZER EVERY 6 HOURS NEEDED FOR WHEEZING 450 mL 5 5 Active Surgical History Surgery Date Site/Laterality Comments CARDIAC ELECTROPHYSIOLOGY MAPPING AND ABLATION PROCEDURE:CARDIAC ELECTROPHYSIOLOGY MAPPING AND ABLATION SECTION PROCEDURE: SECTION Medical History Medical History Date Comments Atrial fibrillation (CMS/HCC V24, CMS/HCC V28) DX:Atrial fibrillation (HCC) SVT (supraventricular tachyc ardia) (CMS/HCC V24) DX:SVT (supraventricular tac hycardia) ([facility]) Social History Tobacco Use Types Packs/Day Years [...] 5 Years) and At-Risk Patients (6 to 49 Years) (2 of 2 - PCV) 03/23/2008 03/23/2007 Cholesterol Screening (Lipid Panel) 07/30/2022 Colorectal Cancer Screening: Colonoscopy 07/30/2022 HIV Screening 07/30/2022 Hepatitis C Screening 07/30/2022 Social Influencers of Health Screening 07/30/2022 COVID-19 Vaccine ( season) 2024 10/02/2020, 09/11/2020 DTaP,Tdap,and Td Vaccines (2 - Td or Tdap) 07/21/2024 07/21/2014 Depression Screening 08/21/2024 Influenza Vaccine (#1) 2025 0, 05/14/2018, 07/19/2017, Additional history exists Breast Cancer Screening 11/13/2025 11/14/19 24, 10/24/2023, 11/07/2022, Additional history exists Hepatitis B [...] lower breast does not persist. No mass or architectural distortion is apparent. Parenchymal pattern is similar to prior exams. Impression: No suspicious finding on callback imaging. Routine annual screening mammography recommended. BI-RADS 1-negative Procedure [...] Recently Relevant to Health Maintenance Care Teams Embroidery Operator Relationship Specialty Start Date End Date Tony Oropeza MD [address] [place] [id number] PCP - General 07/14/23
--- OUTSIDE RECORDS SUMMARY | 2025-04-14 15:48 | XMS_ITS | Clinical Summary ---
Author Organization [facility] Address [address] [place], [place] [id number] Phone Care Team Providers Care Electrolytic De Scaler Name Role Phone Annel Bowden MD Primary Care Provider [phone] Allergies Active Allergy Reactions Criticality Noted Date [...] probably 2 years. Based on sex her [id number] score is 1 or at 0.6% risk [...] further risk stratify her in terms of [id number] -Have reordered for her Xarelto to be [...] Description 11/18/2025 12:30 PM EDT Office Visit [facility] [address] [facility] 3rd Floor, [address] [place] [address] Shonda Albert, MEGAN [address] [facility], [address] [place] [address] [email or web address] Maintenance Due Date Last Done Comments [...] EDT) SODIUM 138 133 - 146 mmol/L [facility] CHLORIDE 102 96 - 108 mmol/L [facility] POTASSIUM 4.0 3.3 - 5.1 mmol/L [facility] CO2 23 21 - 35 mmol/L [facility] BUN 17 6 - 19 mg/dL [facility] CREATININE 0.70 0.5 - 1.5 mg/dL [facility] GLUCOSE 106(H) 70 - 99 mg/dL [facility] CALCIUM 9.2 8.4 - 10.3 mg/dL [facility] EGFR 109 >59 mL/min/1.7 3m2 [facility] Comment:Estimated glomerular filtration rate calculated using the CKD-EPI refit equation. ANION GAP 17 10 - 20 mmol/L [facility] Blood 02/06/2024 2:58 PM EDT 02/06/2024 3:03 PM EDT Julieta Cowan [facility] LAB BLOOD ORDERABLES Fin al Result [address] [address] from Last 3 Months or Most Recently Relevant to Health Maintenance Insurance [facility] NON NSPG PCP SOLIS [employer] NON NSPG PCP SILVER CLARITY CONNE[employer]CARE [employer] NON NSPG PCP SILVER CLARITY CONNE[employer]CARE [employer] NON NSPG PCP SILVER CLARITY CONNE[employer]CARE [address] [place], [place] [address] NON NSPG PCP SILVER [employer] [place] [address] NON NSPG PCP [employer] Care Teams Electrolytic De Scaler Relationship Specialty Start Date End Date Annel Bowden MD [address] [place] [address] PCP - General 06/08/17 Additional Source Comments The information contained in this document represents components of the legal health record. It is not the complete legal health record.[facility]
--- OUTSIDE RECORDS SUMMARY | 2025-04-14 15:48 | XMS_ITS | Clinical Summary ---
Author Organization [facility] Address [address] [place] [address] Care Team Providers Care Transcribing Machine Operator Name Role Phone Tony Oropeza MD Primary Care Provider Allergies Active Allergy Reactions Criticality Noted Date [...] age to complete this topic Care Teams Transcribing Machine Operator Relationship Specialty Start Date End Date Tony Oropeza MD [address] [place] [address] PCP - General Internal Medicine 07/14/23
== END 2025-04-14 15:04 | disposition home or self-care (01) ==
PROVIDERS: Visit Provider Physician Assistant Medical
DX: R06.02 Shortness of breath (principal)

== ENCOUNTER 2025-04-14 15:09 | Inpatient (IN) | payer OTHER, SELFPAY ==
[2025-04-14] VITALS (7 sets, daily range): BP systolic 132–142; BP diastolic 65–67; PULSE 82–103; RESP 16–18; TEMP 36.2–36.4; O2SAT 93–100; BMI 44.1; BMI 43.1
--- NOTE | ~2025-04-14 | XR_ITS ---
EXAMINATION: XR CHEST CLINICAL INFORMATION: sob COMPARISON: May 22, 2024 TECHNIQUE: Frontal view of the chest was obtained. FINDINGS: No significant abnormality is noted involving the heart, lungs, mediastinum, bony thorax or soft tissues. XR/XR chest 1V IMPRESSION: No acute disease Electronically signed by: Keshav Del Real MD 04/14/2025 03:39 PM EDT RP
--- NOTE | 2025-04-14 15:17 | ECG_ITS ---
Test Reason : RESPIRATORY DISTRESS Blood Pressure : */* mmHG Vent. Rate : 86 BPM Atrial Rate : 86 BPM P-R Int : 136 ms QRS Dur : 84 ms QT Int : 398 ms P-R-T Axes : 57 31 58 degrees QTcB Int : 476 ms Normal sinus rhythm Low voltage QRS Septal infarct (cited on or before 13-Jan-2025) Abnormal ECG When compared with ECG of 13-Jan-2025 07:11, QRS axis Shifted right Referred By: Nayeli Darby Electronically Signed By: CHAYA HO
--- NOTE | 2025-04-14 15:24 | ED_ITS ---
HPI - SOB/Dyspnea General Chief Complaint: Dyspnea Stated Complaint: SOB WHEEZING Time Seen by Provider: 04/14/25 15:13 Source: patient Mode of arrival: ambulatory Limitations: no limitations History of Present Illness ED Provider: DR. Darby HPI Narrative: 44-year-old female history of asthma presented with wheezing and shortness of breath since last night, patient went to urgent care was given DuoNeb with no relief and was transferred to the hospital for further evaluation, route patient received more bronchodilator, IM epinephrine, IV magnesium, IV Solu-Medrol with out improvement then patient was placed on BiPAP for transportation. Patient in the ED is able to speak in full sentence but still complaining of shortness of breath with some improvement from last night, no fever, no chills, no coughing, patient declined smoking cigarette only smokes marijuana. No recent travel, no lower extremity swelling or tenderness, no history of PE or DVT. Related Data Home Medications ?Medication ?Instructions ?Recorded ?Confirmed atomoxetine 40 mg capsule 80 mg PO QAM 04/14/25 cetirizine 10 mg tablet 10 mg PO DAILY PRN 04/14/25 flecainide 100 mg tablet 100 mg PO BID 04/14/25 lamotrigine 200 mg tablet,extended 200 mg PO QAM 04/14 release 24 hr montelukast 10 mg tablet 10 mg PO BEDTIME 04/14/25 rivaroxaban 20 mg tablet (Xarelto) 20 mg PO QPM venlafaxine 150 mg 150 mg PO QAM 04/14/25 capsule,extended release 24 hr venlafaxine 75 mg capsule,extended 75 mg PO QAM release 24 hr Previous Rx's ?Medication ?Instructions ?Recorded albuterol sulfate 90 mcg/actuation 2 inh inhalation Q4 -6H PRN 07/29/22 breath activated powder inhaler shortness of breath or wheezing #1 ea acetaminophen 500 mg tablet 500 mg PO Q6H PRN fever or pain 02/18/23 (Tylenol Extra Strength) #14 tabs ipratropium 0.5 mg-albuterol 3 mg 3 ml inhalation Q6H PRN shortness 06/17/23 (2.5 mg base)/3 mL nebulization of breath #90 mL soln Allergies Allergy/AdvReac Type Severity Reaction Status Date / Time peanut (PEANUT) Allergy Severe ANAPHYLAXIS Verified 04/14/25 15:31 banana Allergy Itching Verified 04/14/25 15:31 Review of Systems 2 Review of Systems: All other systems are reviewed and are negative Constitutional: Reports as per HPI and Reports no additional constitutional complaints Eyes: Reports as per HPI and Reports no additional eye complaints Reports system reviewed and no additional complaints, except as documented Cardiovascular: Reports as per HPI and Reports no additional cardiovascular complaints Respiratory: Reports as per HPI and Reports no additional respiratory complaints Gastrointestinal: Reports as per HPI and Reports no additional gastrointestinal complaints Genitourinary: Reports no additional female genitourinary complaints Musculoskeletal: Reports no additional musculoskeletal complaints Skin/Breast: Reports system reviewed and no additional complaints, except as docu Psychiatric: Reports no additional psychiatric complaints Endocrine: Reports no additional endocrine complaints Hematologic/Lymphatic: Reports no additional hematologic/lymphatic complaints Allergic/Immunologic: Reports no additional allergic/immunologic complaints Reports system reviewed and no additional complaints, except as documented and Reports Abnormal speech present [facility] Past Medical History Medical History Chronic anticoagulation Anxiety Bipolar 1 disorder Afib Asthma Social History Social History Unable to assess alcohol history related to: Unknown Alcohol intake: never Patient Tobacco Use Status: Never used Tobacco Smoked in Last 30 Days: No Use of substances other than those prescribed or required for medical reasons: Yes Substance Use Type: Marijuana Substance Use Frequency: Occasionally Advance Directives: No Advance Directives Information Provided: Yes Do you have a plan to hurt others: No Plan Patient : No Physical Exam 2 Vital Signs: Vital Signs: Last Vital Signs Temp 97.6 F 04/14/25 15:28 Pulse 90 04/14/25 16:01 Resp 17 04/14/25 16:01 BP 142/65 H 04/14/25 15:28 Pulse Ox 99 04/14/25 16:01 O2 Del Method Room Air 04/14/25 16:01 BMI result Body Mass Index 44.1 Vital signs have been reviewed and appear to be correct. Blood pressure elevated. Heart rate normal. Respiratory rate normal. Temperature normal. Oxygen saturation normal. Appearance: Alert. Oriented X3. No acute distress. Head: Normal external exam. Normocephalic. Atraumatic. No Hansen signs noted. No raccoon eyes noted Eyes: PERRLA. EOMI. Conjunctiva and sclera normal. Eyelids normal. ENT: TM's Normal. Pharynx normal. Uvula midline. Moist mucous membranes. No trismus noted. No drooling noted. No muffled voice noted. Neck: Normal inspection. Neck supple. FROM. No adenopathy. Thyroid Normal. No meningeal signs. No neck mass noted. CVS: Normal heart rate and rhythm. Heart sound normal. No murmurs noted. Pulses normal throughout. Respiratory: No respiratory distress. Painless inspiration. Diffuse mild expiratory wheezing with prolonged expiration, diminished breathing sounds bilaterally No accessory muscle usage noted or decreased air movement noted. Abdomen: Soft and nontender. Bowel sounds normal in all 4 quadrants. No distention noted. No organomegaly noted. No visible injury noted. Back: No CVA tenderness. Full range of motion noted. Skin: Skin warm and dry. Normal skin color. Normal skin turgor. No rashes/lesions/lacerations noted. Extremities: No lower extremity edema. Extremities exhibit normal range of motion. Extremities nontender. Neuro: Oriented X 3. Cranial nerve exam: II-XII are grossly intact No motor deficit. No sensory deficit. Reflexes normal. Course Reevaluation(s) Reevaluation #1: Acute asthma exacerbation. No sepsis or septic shock. Unremarkable D-dimer no pulmonary embolism. Time: 16:16 Consultations Consultation #1: 44-year-old female with acute asthma exacerbation require noninvasive BiPAP, epinephrine, Solu-Medrol, magnesium, bronchodilator by EMS. Patient is off BiPAP now with right improvement of her symptoms still expiratory wheezing is appreciated on exam. Will admit the patient for home monitoring. Time: 16:18 Medications Administered Discontinued Medications Generic Name Dose Route Start Last Admin Trade Name Freq PRN Reason Stop Dose Admin Albuterol Sulfate 5 mg/ 0 mg 04/14/25 15:27 04/14/25 15:37 Albuterol/Ipratropium 3 ml INHALE 04/14/25 15:28 7.5 each ONCE ONE Administration Magnesium Sulfate 2 gm in 50 mls @ 150 mls/hr 04/14/25 15:19 04/14/25 16:00 Magnesium Sulfate/H2o IV 04/14/25 15:38 Infused ONCE ONE Infusion Methylprednisolone Sodium Succinate 125 mg 04/14/25 15:19 04/14/25 15:38 Methylprednisolone Sod Succ 125 Mg/2 Ml Vial IVPUSH 04/14/25 15:20 125 mg ONCE ONE Administration Medical Decision Making Differential Diagnosis Differential Diagnoses: The differential diagnosis associated with the presentation includes (Asthma exacerbation, COPD, pulmonary embolism, pneumonia, pneumothorax, pleural effusion, hypoxia, severe anemia, viral respiratory infection.) Admission/Observation Consideration of admission/observation: Escalation of care including admission/observation considered Consult Healthcare Provider Management of the patient was discussed with: Hospitalist (Katlyn Delarosa) Lab Data MDM Lab Attestation statement: I reviewed the patient's lab results. 04/14/25 15:55 04/14/25 15:23 Labs: Lab Results 04/14/25 04/14/25 Range/Units 15:23 15:55 WBC 12.9 H (4.8-10.8) X10*3/uL RBC 5.04 D (4.20-5.50) X10*6/uL Hgb 14.9 D (12.0-16.0) g/dl Hct 43.7 D (37.0-47.0) % MCV 86.7 (80.0-98.0) fL MCH 29.6 (27.0-33.0) pg MCHC 34.1 (31.0-35.0) g/dl RDW 13.6 (11.0-16.0) % Plt Count 354 D (160-400) X10*3/uL MPV 9.4 (9.4-12.3) fL Immature Gran % (Auto) 0.4 (0.0-0.4) % Neut % (Auto) 66.5 (45-73) % Lymph % (Auto) 27.4 (20-40) % [place] % (Auto) 4.5 (2-11) % Eos % (Auto) 0.9 (0-4) % Baso % (Auto) 0.3 (0-2) % Lymph # (Auto) 3.5 (1.2-4.9) X10*3/uL [place] # (Auto) 0.6 (0.1-1.2) X10*3/uL Eos # (Auto) 0.1 (0.0-0.4) X10*3/uL Baso # (Auto) 0.0 (0.0-0.2) X10*3/uL Abs Immat Gran (auto) 0.05 H (0.00-0.03) X10*3/uL Absolute Neuts (auto) 8.6 H (2.0-8.3) x10*3/uL Absolute Nucleated RBC 0.000 (0.0-0.012) X10*3/uL Nucleated RBC % (auto) 0.0 (0.0-0.2) /100WBC PT 12.6 H (10.9-12.4) SEC INR 1.1 (0.9-1.1) D-Dimer High Sensitivty < 150 NG/ML Sodium 139 (135-145) mmol/L Potassium 4.3 (3.3-5.1) mmol/L Chloride 104 (96-108) mmol/L Carbon Dioxide 21 L (22-29) mmol/L Anion Gap 18 (12-20) BUN 15 (9-16) mg/dL Creatinine 0.79 (0.5-1.4) mg/dL Estim Creat Clear Calc 112.7 Estimated GFR > 60 Random Glucose 100 (60-115) mg/dL Lactic Acid 3.1 H* (0.5-2.0) mmol/L Calcium 9.8 D (8.4-10.2) mg/dL Total Bilirubin 0.5 (0.0-1.0) mg/dL Direct Bilirubin 0.1 (0.0-0.5) mg/dL AST 32 H (5-31) U/L ALT 19 (0-31) U/L Alkaline Phosphatase 104 (39-117) U/L Troponin I High Sens < 2.7 (<3.5-17.0) ng/L B-Natriuretic Peptide < 10 (<100) pg/mL Total Protein 8.0 (6.5-8.0) g/dL Albumin 4.8 (3.5-5.0) g/dL Lipase 16 (8-78) U/L Independent Interpretation I performed an independent interpretation of an: Plain X-Ray (Chest: No acute pathology.) Radiology Impression Discussion of test interpretation with radiology: I have reviewed the radiologist's reading. Chronic Conditions Patient?s care impacted by: Other (Asthma) Critical Care Time Critical Care Time Critical Care Time: Yes Total Critical Care Time: 60 Attestation: The patient was critically ill with a high probability of imminent or life- threatening deterioration. I spent greater than 30 minutes of discontinuous time evaluating the patient, delivering critical care at the bedside, discussing evaluating data with consultants. Critical care time does not include time spent performing separately billable procedures or teaching. Time spent performing critical care was 60 minutes. Discharge Plan Discharge Clinical Impression: Asthma with exacerbation Patient Disposition: Admitted As Inpatient Print Language: Iraqi
[2025-04-14 15:36] LABS: INTERNATIONAL NORM RATIO 1.1 (0.9-1.1); Prothrombin Time 12.6 SEC (10.9-12.4)
[2025-04-14] MEDS: Albuterol Sulfate 5 MG, Albuterol/Iprat 2.5/0.5MG 3 ML 3 ML INHALE (15:37)
[2025-04-14 15:39] LABS: D Dimer High Sensitivity < 150 NG/ML
[2025-04-14] MEDS: Magnesium Sulfate/H2O 2 GM/50 ML PIGGYBACK IV (15:39)
[2025-04-14 15:44] LABS: Alanine Aminotransferase 19 U/L (0-31); Albumin Level 4.8 g/dL (3.5-5.0); Alkaline Phosphatase 104 U/L (39-117); Anion Gap 18 (12-20); Aspartate Amino Transferase 32 U/L (5-31); Blood Urea Nitrogen 15 mg/dL (9-16); Calcium 9.8 mg/dL (8.4-10.2); Carbon Dioxide 21 mmol/L (22-29); Chloride 104 mmol/L (96-108); Creatinine Clr Calc Pharmacy 112.7; Estimated Glomerular Filt Rate > 60; Lipase 16 U/L (8-78); Potassium 4.3 mmol/L (3.3-5.1); Sodium 139 mmol/L (135-145); Total Protein 8.0 g/dL (6.5-8.0)
[2025-04-14 15:49] LABS: B Type Natriuretic Peptide < 10 pg/mL (<100)
--- NOTE | 2025-04-14 15:49 | PC.NURSE ---
Pt comes from urgent care via EMS with c/o SOB and wheezing. Pt on Bipap on arrival: 06/08 Pt is A&Ox3 BP and P stable Skin is cool and dry. Respiration are quick and shallow--Pt encouraged to slow breathing. RT at bedside and change Pt to CPAP 12 and 100% O2. Neb treatment provided and Pt medicated per OCT. Post neb treatment, pt removed from CPAP. O2 remains stable at 96% RA. Bloodwork pending. Pt is currently resting without distress.
[2025-04-14 15:59] LABS: MANUAL DIFF FLAG NO
[2025-04-14 16:02] LABS: Hematocrit 43.7 % (37.0-47.0); Hemoglobin 14.9 g/dl (12.0-16.0); Imm Gran Abs Auto 0.05 X10*3/uL (0.00-0.03); Imm Gran Pct Auto 0.4 % (0.0-0.4); Lymphocytes Absolute Auto 3.5 X10*3/uL (1.2-4.9); Mean Corpuscular HGB Conc 34.1 g/dl (31.0-35.0); Mean Corpuscular Hemoglobin 29.6 pg (27.0-33.0); Mean Corpuscular Volume 86.7 fL (80.0-98.0); NRBC Abs Auto 0.000 X10*3/uL (0.0-0.012); NRBC Pct Auto 0.0 /100WBC (0.0-0.2); Platelet Count 354 X10*3/uL (160-400); Red Blood Count 5.04 X10*6/uL (4.20-5.50); White Blood Count 12.9 X10*3/uL (4.8-10.8)
[2025-04-14 16:29] LABS: Troponin-I High Sensitivity < 2.7 ng/L (<3.5-17.0)
--- NOTE | 2025-04-14 16:35 | PM.IMHP ---
History of Present Illness Date of Service: 04/14/25 Attending physician on admission: Ethan Shanks Chief Complaint: asthma excerebation HPi:44yo F with anxiety, bipolar disorder, atrial fibrillation on Xarelto, asthma presented with wheezing and shortness of breath since last night, patient went to urgent care was given DuoNeb with no relief and was transferred to the hospital for further evaluation, ems route patient received more bronchodilator, IM epinephrine, IV magnesium, IV Solu-Medrol with out improvement then patient was placed on BiPAP for transportation-with above care her shortness of breath with some improvement from last night, no fever, no chills, no coughing, patient declined smoking cigarette ,only smokes marijuana-last use was last monday , denies any cigarette smoking or recreational drug use or alcohol use.. No recent travel, no lower extremity swelling or tenderness. Lab imaging, EKG reviewed: Mild leukocytosis 12.9 BMP seems fine Lactic acid 3.1 Troponin: 2.7 , ekg -seems similar . Review of Systems Review of Systems: as above. Yes all other systems are reviewed and are negative [facility] Medical History Chronic anticoagulation Anxiety Bipolar 1 disorder Afib Asthma Social History Unable to assess alcohol history related to: Unknown Alcohol intake: never Patient Tobacco Use Status: Never used Tobacco Smoked in Last 30 Days: No Use of substances other than those prescribed or required for medical reasons: Yes Substance Use Type: Marijuana Substance Use Frequency: Occasionally Advance Directives: No Advance Directives Information Provided: Yes Do you have a plan to hurt others: No Plan Patient : No Meds Allergies Allergy/AdvReac Type Severity Reaction Status Date / Time peanut (PEANUT) Allergy Severe ANAPHYLAXIS Verified 04/14/25 15:31 banana Allergy Itching Verified 04/14/25 15:31 Active Medications: Current Medications Acetaminophen (Acetaminophen 325 Mg Tablet) 650 mg PO Q6H PRN PRN Reason: Pain, Mild 1-3,fever,headache Albuterol/Ipratropium (Albuterol/Iprat 2.5/0.5mg 3 Ml Ampul.Neb) 3 ml INHALE Q4H MANUELA Albuterol/Ipratropium (Albuterol/Iprat 2.5/0.5mg 3 Ml Ampul.Neb) 3 ml INHALE Q3H PRN PRN Reason: sob Calcium Carbonate (Calcium Carbonate 750 Mg Tab.Chew) 750 mg PO Q4H PRN PRN Reason: Heartburn Lactated Ringer's (Lr) 1,000 mls @ 100 mls/hr IVCONT .Q10H MANUELA Magnesium Hydroxide (Milk Of Magnesia 30 Ml Oral.Susp) 30 ml PO DAILY PRN PRN Reason: Constipation Melatonin (Melatonin 3 Mg Tablet) 6 mg PO BEDTIME PRN PRN Reason: Insomnia Methylprednisolone Sodium Succinate (Methylprednisolone Sod Succ 40 Mg/Ml Vial) 40 mg IVPUSH BID MANUELA Sodium Chloride (0.9 % Sodium Chloride Flush 3 Ml Syringe) 3 ml IVFLUSH QSHIFT MANUELA Home Medications ?Medication ?Instructions ?Recorded ?Confirmed ?Last Taken ?Type albuterol sulfate 2.5 mg/3 mL 2.5 mg inhalation Q6H PRN wheezing 04/14/25 04/14/25 Unknown History (0.083 %) solution for nebulization atomoxetine 40 mg capsule 80 mg PO BEDTIME 04/14/25 04/14/25 04/13/25 History cetirizine 10 mg tablet 20 mg PO BEDTIME PRN Allergy 04/14/25 04/14/25 Unknown History Symptoms flecainide 100 mg tablet 200 mg PO BEDTIME 04/14/25 04/14/25 04/13/25 History lamotrigine 200 mg tablet,extended 200 mg PO BEDTIME 04/14/25 04/14/25 04/13/25 History release 24 hr montelukast 10 mg tablet 10 mg PO BEDTIME 04/14/25 04/14/25 04/13/25 History rivaroxaban 20 mg tablet (Xarelto) 20 mg PO BEDTIME 04/14/25 04/14/25 04/13/25 History venlafaxine 150 mg 150 mg PO BEDTIME 04/14/25 04/14/25 04/13/25 History capsule,extended release 24 hr venlafaxine 75 mg capsule,extended 75 mg PO BEDTIME 04/14/25 04/14/25 04/13/25 History release 24 hr Physical Exam Vital Signs and Narrative: Vital Signs: Last Vital Signs Temp 97.6 F 04/14/25 15:28 Pulse 90 04/14/25 16:01 Resp 17 04/14/25 16:01 BP 142/65 H 04/14/25 15:28 Pulse Ox 99 04/14/25 16:01 O2 Del Method Room Air 04/14/25 16:01 BMI result Body Mass Index 44.1 Appearance: Alert.? Oriented X3.?sob. cvs: rrr, [id number] , no murmur res: air entry diminshed ,has b/l exp wheezing abd: no rebound or guarding ,nt, bs present. ext pulses present , no cyanosis . neuro: axo3 , nonfocal. Results Labs 04/14/25 15:55 04/14/25 15:23 Labs: Laboratory Results - last 24 hr 04/14/25 04/14/25 15:23 15:55 MCV 86.7 MCH 29.6 MCHC 34.1 RDW 13.6 Plt Count 354 D MPV 9.4 Immature Gran % (Auto) 0.4 Neut % (Auto) 66.5 Lymph % (Auto) 27.4 [place] % (Auto) 4.5 Eos % (Auto) 0.9 Baso % (Auto) 0.3 Lymph # (Auto) 3.5 [place] # (Auto) 0.6 Eos # (Auto) 0.1 Baso # (Auto) 0.0 Abs Immat Gran (auto) 0.05 H Absolute Neuts (auto) 8.6 H Absolute Nucleated RBC 0.000 Nucleated RBC % (auto) 0.0 PT 12.6 H INR 1.1 D-Dimer High Sensitivty < 150 Anion Gap 18 Estim Creat Clear Calc 112.7 Estimated GFR > 60 Random Glucose 100 Lactic Acid 3.1 H* Calcium 9.8 D Total Bilirubin 0.5 Direct Bilirubin 0.1 AST 32 H ALT 19 Alkaline Phosphatase 104 B-Natriuretic Peptide < 10 Total Protein 8.0 Albumin 4.8 Lipase 16 Imaging Radiologist's Impressions: Impressions Chest X-Ray 04/14/25 14:20 IMPRESSION: No acute disease Assessment and Plan (1) Asthma with exacerbation: Status: Acute Plan 44yo F with anxiety, bipolar disorder, atrial fibrillation on Xarelto, asthma came to the hospital because asthma execerebation. Asthma exacerbation(mild intermittent), also has URI like symptoms. Patient has significant dyspnea with asthma exacerbation requiring BiPAP, epinephrine, IV nebs, steroids, respiratory viral panel, p.r.n. oxygen as needed. Leukocytosis likely reactive-chest x-ray negative, patient denies any urinary complaints, blood cultures sent by ED pending. Acute lactic acidosis: Possible secondary to albuterol/dyspnea. Added IV fluids, monitor lactic acid. Paf: Currently NSR, continue flecainide/rivaroxaban Anxiety/bipolar disorder: Continue home anxiety medications DVT prophylaxis: Rivaroxaban. Patient will benefit from 2 midnight stays considering severe asthma attack/requiring BiPAP: Continue IV steroids, nebs, respiratory status is still not optimal. Assessment and plan coordination time spent 70 minute, patient is full code. Quality Stroke Does the patient have a stroke diagnosis?: No VTE Prior VTE?: No VTE Risk Level:: Medical - moderate - high VTE Device Contraindication: N/A - Device Ordered VTE Drug Contraindication: N/A - Med Ordered
[2025-04-14 16:41] LABS: Resp Syncy Virus RNA Qual PCR NEGATIVE (Negative); SARS COV2 PCR INHOUSE NEGATIVE (Negative)
[2025-04-14] MEDS: Lactated Ringers 1,000 ML 100 ML IVCONT (17:25)
--- NOTE | 2025-04-14 17:45 | PHA.MEDREC ---
Addendum entered by Myriam Winter [facility] 04/14/25 18:03: Reviewed, list also shows patient has an IUD but the specific brand is not named. Original Note: Pharmacy Consult ? Medication Reconciliation Pharmacy has completed the medication reconciliation. Spoke with pt and she confirmed her medications with a list on hand she has. Pt states she takes all her medications at night; pt states she takes Flecanide 200mg at bedtime instead of 100 mg BID.
[2025-04-14 17:59] LABS: Reflex Lactate? Lactic Acid Added
[2025-04-14 18:41] LABS: ~Lactic Acid-LAB USE ONLY 1.8 mmol/L (0.5-2.0)
--- NOTE | 2025-04-14 18:41 | PC.NURSE ---
Patient arrive to unit at 1810. Xarelto due for 1700 not yet administered. Per Pharmacist Erinn Winter- patient needs to take with meal. Patient not yet received meal. Dinner order placed. Care transferred to oncoming RN. Plan to administer medication late with meal this evening.
[2025-04-14] MEDS: Albuterol/Iprat 2.5/0.5MG 3 ML AMPUL.NEB INHALE ×2 (20:21→23:32)
[2025-04-14] MEDS: Venlafaxine HCl ER 75 MG CAP.ER.24H PO (21:12)
[2025-04-14] MEDS: Venlafaxine HCl ER 150 MG CAP.ER.24H PO (21:12)
[2025-04-14] MEDS: 0.9 % Sodium Chloride Flush 3 ML SYRINGE IVFLUSH (21:23)
--- NOTE | 2025-04-14 21:35 | PC.RT ---
Spoke with patient about CPAP with RN present. She states she does not wear CPAP at home and does not want to wear it while admitted.
[2025-04-14 21:50] LABS: Cannabinoid Screen Urine POSITIVE (Not Detect)
[2025-04-15 03:20] VITALS: BP 144/67; PULSE 95; RESP 19; TEMP 36.1; O2SAT 94
[2025-04-15] MEDS: Lactated Ringers 1,000 ML 100 ML IVCONT (03:20)
[2025-04-15 06:59] VITALS: BP 147/76; PULSE 90; RESP 16; TEMP 35.9; O2SAT 92
[2025-04-15] MEDS: Albuterol/Iprat 2.5/0.5MG 3 ML AMPUL.NEB INHALE ×2 (07:44→11:32)
[2025-04-15 07:45] VITALS: PULSE 101; RESP 16; O2SAT 95
[2025-04-15 08:48] LABS: Chlamydia pneumoniae PCR Not Detected (Not Detect.); Coronavirus 229E PCR Not Detected (Not Detect.); Coronavirus HKU1 PCR Not Detected (Not Detect.); Coronavirus NL63 PCR Not Detected (Not Detect.); Coronavirus OC43 PCR Not Detected (Not Detect.); RSV PCR Not Detected (Not Detect.); Rhino/Enterovirus PCR Detected (Not Detect.)
[2025-04-15] MEDS: Butalb/Acetamin/Caff 50/325/40 TABLET 1 TAB PO (09:32)
[2025-04-15 09:57] LABS: Influenza A H1 PCR Not Detected (Not Detect.); SARS-CoV-2 PCR Not Detected (Not Detect.)
[2025-04-15 09:58] LABS: Influenza A H1-2009 PCR Not Detected (Not Detect.); Influenza A H3 PCR Not Detected (Not Detect.)
--- NOTE | 2025-04-15 09:58 | MHC.CM.PN ---
Addendum entered by Jayshree Garcia 04/15/25 10:51: DP: PT HAS BEEN MEDICALLY CLEARED FOR DC HOME, NO SERVICES. FRIEND WILL TRANSPORT Original Note: CM MET WITH PT AT BEDSIDE. PT LIVES WITH DAUGHTER AND IS FUNCTIONALLY INDEP. PT IS EMPLOYED F/T. PT USES NEBULIZER PRN. PT DECLINES COMPLETION OF HCP. PCP DR. SHANKS AT [facility]. DP: HOME, NO SERVICES IS THE GOAL. PT'S FRIEND WILL TRANSPORT. CM WILL CONTINUE TO FOLLOW FOR ANY CHANGE TO DC PLAN.
--- NOTE | 2025-04-15 10:45 | PM.DS ---
DS: Providers Provider Date of Service: 04/15/25 Date of admission: 04/14/25 16:29 Date of discharge: 04/15/25 Primary care physician: Unknown Physician Attending physician on discharge: Ethan Shanks Discharging clinician: Ethan Shanks DS: Diagnosis Discharge Diagnosis (1) Asthma with exacerbation: Status: Acute DS: Summary Hospital Course Hospital Course: HPI:44yo F with anxiety, bipolar disorder, atrial fibrillation on Xarelto, asthma presented with wheezing and shortness of breath since last night, patient went to urgent care was given DuoNeb with no relief and was transferred to the hospital for further evaluation, ems route patient received more bronchodilator, IM epinephrine, IV magnesium, IV Solu-Medrol with out improvement then patient was placed on BiPAP for transportation-with above care her shortness of breath with some improvement from last night, no fever, no chills, no coughing, patient declined smoking cigarette ,only smokes marijuana-last use was last monday , denies any cigarette smoking or recreational drug use or alcohol use.. No recent travel, no lower extremity swelling or tenderness. Lab imaging, EKG reviewed: Mild leukocytosis 12.9 BMP seems fine Lactic acid 3.1 Troponin: 2.7 , ekg -seems similar . Hospital course: 44yo F with anxiety, bipolar disorder, atrial fibrillation on Xarelto, asthma came to the hospital because asthma execerebation. Asthma exacerbation(mild intermittent), also has entero/rhino viral URI like symptoms. Patient has significant dyspnea with asthma exacerbation requiring BiPAP, epinephrine, IV nebs, steroids, respiratory viral panel, p.r.n. oxygen as needed. Leukocytosis likely reactive-chest x-ray negative, patient denies any urinary complaints, blood cultures sent from ed pending -so far no growth Patient is currently asymptomatic improved with the above management. Sats are 92-94% on air. Ambulating fine without any shortness of breath. blood cultures pending --patient says she is feeling better , no new symptoms , not septic. will inform patient is blood cultures comes back positive . Acute lactic acidosis: Possible secondary to albuterol/dyspnea. Added IV fluids, lactic acidosis improved. plan: prednisone 40 mg qd x4 days Tylenol adjusted to 975 p.o. Q 6 hours p.r.n., added cough syrup. Above management discussed with the patient in detail length she understand and in agreement with the above plan, time spent 40 minute, all question answered. Staff was present during conversation. Time Attestation Total time managing care of this patient today: 40 mintues. Discharge Coordination Time (in mins): 40 min Quality: Safe Use of Opioids Does Pt have an Active Cancer Diagnosis on the Problem List?: No Quality: Stroke Does the patient have a stroke diagnosis?: No Physical Exam Exam: Exam: Appearance: Alert.? Oriented X3.? cvs: rrr, [id number] , no murmur. res: clear to auscultation ,no rhonchii or wheezing abd: no rebound or guarding ,nt, bs present. ext pulses present , no cyanosis . neuro: axo3 , nonfocal. Vital Signs: Vital Signs: Last Vital Signs Temp 96.7 F L 04/15/25 06:59 Pulse 101 H 04/15/25 07:45 Resp 16 04/15/25 07:45 BP 147/76 H 04/15/25 06:59 Pulse Ox 92 04/15/25 06:59 O2 Del Method Room Air 04/15/25 06:59 BMI result Body Mass Index 43.1 DS: Data Data Completed and Pending Labs on day of discharge: Laboratory Results - last 24 hr 04/14/25 04/14/25 04/14/25 15:23 15:55 18:17 WBC 12.9 H RBC 5.04 D Hgb 14.9 D Hct 43.7 D MCV 86.7 MCH 29.6 MCHC 34.1 RDW 13.6 Plt Count 354 D MPV 9.4 Immature Gran % (Auto) 0.4 Neut % (Auto) 66.5 Lymph % (Auto) 27.4 [place] % (Auto) 4.5 Eos % (Auto) 0.9 Baso % (Auto) 0.3 Lymph # (Auto) 3.5 [place] # (Auto) 0.6 Eos # (Auto) 0.1 Baso # (Auto) 0.0 Abs Immat Gran (auto) 0.05 H Absolute Neuts (auto) 8.6 H Absolute Nucleated RBC 0.000 Nucleated RBC % (auto) 0.0 PT 12.6 H INR 1.1 D-Dimer High Sensitivty < 150 Sodium 139 Potassium 4.3 Chloride 104 Carbon Dioxide 21 L Anion Gap 18 BUN 15 Creatinine 0.79 Estim Creat Clear Calc 112.7 Estimated GFR > 60 Random Glucose 100 Lactic Acid 3.1 H* Lactic Acid F/U @ 2Hr 1.8 Calcium 9.8 D Total Bilirubin 0.5 Direct Bilirubin 0.1 AST 32 H ALT 19 Alkaline Phosphatase 104 Troponin I High Sens < 2.7 B-Natriuretic Peptide < 10 Total Protein 8.0 Albumin 4.8 Lipase 16 Urine Opiates Screen Ur Buprenorphine Scrn Ur Oxycodone Screen Urine Methadone Screen Urine Fentanyl Screen Ur Barbiturates Screen Ur Phencyclidine Scrn Ur Amphetamines Screen U Benzodiazepines Scrn Urine Cocaine Screen U Marijuana (THC) Screen Respiratory Panel [place] Adenovirus (Rapid PCR) B.pert (TEM-PCR) B.parapertussis DNA PCR C. pneumoniae DNA (PCR) Coronavirus OC43 (PCR) Coronavirus HKU1 (PCR) Coronavirus 229E (PCR) Coronavirus NL63 (PCR) Human Metapneumovir PCR Influenza A (RT-PCR) Influenza A (H1) PCR Influ A (H1/09) PCR Influenza A (H3) PCR Influenza Type A (PCR) NEGATIVE Influenza B (RT-PCR) Influenza Type B (PCR) NEGATIVE M. pneumoniae (PCR) Parainfluenza 1 (PCR) Parainfluenza 2 (PCR) Parainfluenza 3 (PCR) Parainfluenza 4 (PCR) RSV (PCR) RSV RNA Qual (PCR) NEGATIVE Entero/Rhino (PCR) SARS-CoV-2 RNA (RT-PCR) NEGATIVE 04/14/25 21:00 WBC RBC Hgb Hct MCV MCH MCHC RDW Plt Count MPV Immature Gran % (Auto) Neut % (Auto) Lymph % (Auto) [place] % (Auto) Eos % (Auto) Baso % (Auto) Lymph # (Auto) [place] # (Auto) Eos # (Auto) Baso # (Auto) Abs Immat Gran (auto) Absolute Neuts (auto) Absolute Nucleated RBC Nucleated RBC % (auto) PT INR D-Dimer High Sensitivty Sodium Potassium Chloride Carbon Dioxide Anion Gap BUN Creatinine Estim Creat Clear Calc Estimated GFR Random Glucose Lactic Acid Lactic Acid F/U @ 2Hr Calcium Total Bilirubin Direct Bilirubin AST ALT Alkaline Phosphatase Troponin I High Sens B-Natriuretic Peptide Total Protein Albumin Lipase Urine Opiates Screen Not Detected Ur Buprenorphine Scrn Not Detected Ur Oxycodone Screen Not Detected Urine Methadone Screen Not Detected Urine Fentanyl Screen Not Detected Ur Barbiturates Screen Not Detected Ur Phencyclidine Scrn Not Detected Ur Amphetamines Screen Not Detected U Benzodiazepines Scrn Not Detected Urine Cocaine Screen Not Detected U Marijuana (THC) Screen POSITIVE H Respiratory Panel [place] See Note Adenovirus (Rapid PCR) Not Detected B.pert (TEM-PCR) Not Detected B.parapertussis DNA PCR Not Detected C. pneumoniae DNA (PCR) Not Detected Coronavirus OC43 (PCR) Not Detected Coronavirus HKU1 (PCR) Not Detected Coronavirus 229E (PCR) Not Detected Coronavirus NL63 (PCR) Not Detected Human Metapneumovir PCR Not Detected Influenza A (RT-PCR) Not Detected Influenza A (H1) PCR Not Detected Influ A (H1/09) PCR Not Detected Influenza A (H3) PCR Not Detected Influenza Type A (PCR) Influenza B (RT-PCR) Not Detected Influenza Type B (PCR) M. pneumoniae (PCR) Not Detected Parainfluenza 1 (PCR) Not Detected Parainfluenza 2 (PCR) Not Detected Parainfluenza 3 (PCR) Not Detected Parainfluenza 4 (PCR) Not Detected RSV (PCR) Not Detected RSV RNA Qual (PCR) Entero/Rhino (PCR) Detected A SARS-CoV-2 RNA (RT-PCR) Not Detected Imaging Chest x-ray: Radiologist's impression: ITS Impressions Chest X-Ray 04/14/25 14:20 IMPRESSION: No acute disease Discharge Plan Discharge Anticipated Discharge Date/Time: 04/15/25 10:38 Patient Disposition: Home, Self-Care Discharge Diagnosis: asthma execerebation , entero/rhino viral uri. Referrals: Physician,Unknown J [Physician, Medical] - 1 Week Discharge Medications: New prednisone 20 mg Tablet 40 mg PO DAILY Qty: 8 0RF guaifenesin 100 mg/5 mL Liquid 100 mg PO Q6H PRN (Reason: Cough) Qty: 118 0RF Continued albuterol sulfate 90 mcg/actuation aerosol powdr breath activated 2 inh inhalation Q4-6H PRN (Reason: shortness of breath or wheezing) Qty: 1 0RF albuterol sulfate 2.5 mg /3 mL (0.083 %) solution for nebulization 2.5 mg inhalation Q6H PRN (Reason: wheezing) venlafaxine 75 mg capsule,extended release 24hr 75 mg PO BEDTIME venlafaxine 150 mg capsule,extended release 24hr 150 mg PO BEDTIME flecainide 100 mg tablet 200 mg PO BEDTIME atomoxetine 40 mg capsule 80 mg PO BEDTIME lamotrigine 200 mg tablet extended release 24hr 200 mg PO BEDTIME cetirizine 10 mg tablet 20 mg PO BEDTIME PRN (Reason: Allergy Symptoms) montelukast 10 mg tablet 10 mg PO BEDTIME Xarelto 20 mg tablet 20 mg PO BEDTIME Changed acetaminophen [Tylenol Extra Strength] 500 mg tablet 975 mg PO Q6H PRN (Reason: fever or pain) Qty: 20 0RF Discharge Orders: Discharge Order (Routine); Ordered 04/15/25 Ordered By: Ethan Shanks Diet: Advance to usual diet Activity on Discharge: As tolerated Stand Alone Forms: Patient Portal Discharge page Print Language: Dominican Care Plan Goals: asthma exacerbation -improved with nebs steriods .going home with steriods. uri -continue tylenol and cough meication. blood cultures pending --patient says she is feeling better , no new symptoms , not septic. will inform patient is blood cultures comes back positive . Health Concerns: prednisone 40 mg po qd. Plan of Treatment: as above. Assessment: as above. Patient Instructions: Asthma (DC), Upper Respiratory Infection (DC) Discharge Date/Time: 04/15/25 12:13
[2025-04-15 11:32] VITALS: PULSE 102; RESP 16; O2SAT 96
== END 2025-04-15 12:13 | disposition home or self-care (01) | DRG 141 ==
LOC: HO.ED 16:21 → HO.EDOVER 16:34 → HO.S3 17:02
PROVIDERS: Admitting Provider Internal Medicine; Emergency Provider Emergency Medicine; PCP Student in an Organized Health Care Education/Training Program; Visit Provider Internal Medicine
DX: J45.901 Unspecified asthma with (acute) exacerbation (principal); E87.21 Acute metabolic acidosis; F31.9 Bipolar disorder, unspecified; F41.9 Anxiety disorder, unspecified; I48.91 Unspecified atrial fibrillation; B97.10 Unspecified enterovirus as the cause of diseases classified elsewhere; B97.89 Other viral agents as the cause of diseases classified elsewhere; Z79.01 Long term (current) use of anticoagulants; Z79.899 Other long term (current) drug therapy
CPT/HCPCS: 36415; 71045; 80048; 80076; 80307; 83605; 83690; 83880; 84484; 85025; 85379; 85610; 87040; 87633; 87637; 93005; 94640; 99202; 99285; J2919; J3475; J7120

== ENCOUNTER → 2025-04-14 15:17 | Outpatient (BNV) | payer OTHER, SELFPAY | PROVIDERS: Admitting Provider Internal Medicine; Emergency Provider Emergency Medicine; PCP Student in an Organized Health Care Education/Training Program; Visit Provider Internal Medicine | DX: I25.2 Old myocardial infarction (principal) | CPT/HCPCS: 93010 ==

== ENCOUNTER → 2025-04-14 15:18 | Outpatient (BNV) | payer OTHER, SELFPAY | PROVIDERS: Emergency Provider Emergency Medicine; Visit Provider Radiology Diagnostic Radiology | DX: R06.02 Shortness of breath (principal) | CPT/HCPCS: 71045 ==

== ENCOUNTER → 2025-04-14 16:29 | Outpatient (BNV) | payer OTHER, SELFPAY | PROVIDERS: Admitting Provider Internal Medicine; Emergency Provider Emergency Medicine; Visit Provider Internal Medicine | DX: J45.901 Unspecified asthma with (acute) exacerbation (principal) | CPT/HCPCS: 99222; 99239 ==